=== PATIENT | female | born 1955 | race Caucasian/White ===

== ENCOUNTER 2016-04-20 16:35 | Emergency (ER) | payer SELFPAY ==
[2016-04-20 16:45] VITALS: BP 183/88; PULSE 86; O2SAT 98
--- NOTE | 2016-04-20 16:51 | ERPHSYRPT ---
- History of Present Illness Time Seen by Provider: 04/20/16 16:49 Source: patient Exam Limitations: no limitations Patient Subjective Stated Complaint: pt reports was walking down flight of steps when she felt her right knee "shift"-reports pain to right knee-denies fall Triage Nursing Assessment: no obvious deformity noted-pedal pulse present- denies numbnes sor tinlging Physician History: pt reports was walking down flight of steps when she felt her right knee "shift "-reports pain to right knee-denies fall Occurred: just prior to arrival Quality: constant Severity of Pain-Max: moderate Severity of Pain-Current: moderate Lower Extremities Pain: knee: right Modifying Factors: Improves With: nothing Associated Symptoms: none Allergies/Adverse Reactions: amoxicillin trihydrate [From Augmentin] Adverse Reaction (Severe, Verified 04/20 16:46) Vomiting potassium clavulanate [From Augmentin] Adverse Reaction (Severe, Verified 16:46) Vomiting Home Medications: Aspirin 81 mg PO DAILY 10/11/11 [History] Alprazolam 0.25 mg [xanAX 0.25 MG] 0.25 mg PO TIDPRN 09/25/15 [History] Atorvastatin Calcium [Lipitor] 40 mg PO HS 09/25/15 [History] Carvedilol [Coreg] 25 mg PO BID 09/25/15 [History] Lisinopril [Zestril] 20 mg PO DAILY 09/25/15 [History] Prasugrel HCl [Effient] 10 mg PO DAILY 09/25/15 [History] Hx Tetanus, Diphtheria Vaccination/Date Given: Yes Hx Influenza Vaccination/Date Given: No Hx Pneumococcal Vaccination/Date Given: No Immunizations Up to Date: Yes - Review of Systems Constitutional: No Symptoms Eyes: No Symptoms Ears, Nose, & Throat: No Symptoms Respiratory: No Symptoms Cardiac: No Symptoms Abdominal/Gastrointestinal: No Symptoms Genitourinary Symptoms: No Symptoms Musculoskeletal: Joint Pain (right knee), No Fall - Past Medical History Pertinent Past Medical History: Yes Neurological History: No Pertinent History Cardiac History: Coronary Artery Disease, High Cholesterol, Hypertension, Myocardial Infarction ([place]) Respiratory History: No Pertinent History Endocrine Medical History: No Pertinent History Musculoskeletal History: Arthritis, Fibromyalgia GI Medical History: No Pertinent History History: No Pertinent History Psycho-Social History: Depression Female Reproductive Disorders: No Pertinent History - Past Surgical History Past Surgical History: Yes Neuro Surgical History: No Pertinent History Cardiac: Cardiac Catheterization, Cardiac Stent Respiratory: No Pertinent History Gastrointestinal: Appendectomy Genitourinary: No Pertinent History Musculoskeletal: No Pertinent History Female Surgical History: Hysterectomy, Tubal Ligation - Social History Smoking Status: Current every day smoker How long have you smoked: 47 Exposure to second hand smoke: No Drug Use: none Patient Lives Alone: No - Female History Hx Now: No - Nursing Vital Signs Nursing Vital Signs: Initial Vital Signs Temperature 98.1 F Temperature Source Oral Pulse Rate 86 Respiratory Rate 22 Blood Pressure [] 183/88 Pain Intensity 6 - Physical Exam General Appearance: no apparent distress Eyes, Ears, Nose, Throat Exam: normal ENT inspection Knees Exam: right knee: pain, soft tissue tenderness, swelling SpO2: 98 Oxygen Delivery: Room Air - Radiology Exams Knee X-ray Interpretation: Reviewed by me (osteoarthritic changes) Ordered Tests: Active Orders 24 hr Category Date Time Status KNEE (3 VIEWS) Stat Exams 04/20/16 16:49 Taken - Progress Progress: improved, pain not gone completely Counseled pt/family regarding: diagnosis, need for follow-up, rad results - Departure Time of Disposition: 17:34 Departure Disposition: Home Clinical Impression: Osteoarthritis of right knee Qualifiers: Osteoarthritis type: primary Qualified Code(s): M17.11 - Unilateral primary osteoarthritis, right knee Condition: Stable Critical Care Time: No Referrals: [facility] [Primary Care Provider] - Instructions: Osteoarthritis Additional Instructions: Please follow the instructions given to you. Please take your medication as prescribed if given. If symptoms recur or get worse, come back to the emergency room if you cannot reach your primary care physician, or call your primary care physician for an appointment. Again if your symptoms get worse, come back to the emergency room. Thanks for visiting emergency room, and let us take care of you. Prescriptions: Naproxen 375 mg [Naprosyn 375 mg] 375 mg PO Q8H #30 tablet
--- NOTE | 2016-04-20 20:05 | XRAY ---
Indication: Pain. Comparison: None 3 views of the right knee intact with mild osteopenia and tiny lateral tibial plateau spurring. No other bony, articular, or soft tissue abnormalities.
== END 2016-04-20 17:53 | disposition home or self-care (01) ==
LOC: ED 16:35
DX: M17.11 Unilateral primary osteoarthritis, right knee (principal); M25.561 Pain in right knee; E78.00 Pure hypercholesterolemia, unspecified; I10 Essential (primary) hypertension; I25.2 Old myocardial infarction; I25.10 Atherosclerotic heart disease of native coronary artery without angina pectoris
CPT/HCPCS: 73562; 99282

== ENCOUNTER 2017-01-06 20:01 | Emergency (ER) | payer SELFPAY ==
[2017-01-06] MEDS ORDERED: TRANDATE 100 MG/20 ML MDV FOR DRIP IV ONE (20:02)
[2017-01-06] MEDS ORDERED: Sodium Chloride 0.9% 1000 ML 1,000 ML IV SCH (20:15)
[2017-01-06] MEDS ORDERED: Nitrostat 0.4 MG (ED) SL ONE ×2 (20:15→20:35)
[2017-01-06] MEDS ORDERED: TRANDATE 20 MG/5 ML SYRINGE IV ONE (20:15)
[2017-01-06] MEDS ORDERED: BABY ASPIRIN 81 MG CHEW PO ONE (20:15)
--- NOTE | 2017-01-06 20:19 | ERPHSYRPT ---
- History of Present Illness Time Seen by Provider: 01/06/17 20:04 Source: patient Exam Limitations: no limitations Patient Subjective Stated Complaint: STATES STARTED HAVING LEFT JAW PAIN WITH SLIGHT SOB AND CHEST TIGHTNESS STARTING TODAY AT APPROX. 1900 TODAY. TIGHTNESS AROUND BREASTBONE. Triage Nursing Assessment: ALERT AND ORIENTED WITH C/O CHEST TIGHTNESS AND SLIGHT SOB . COLOR SLIGHTLY PALE, SKIN W/D LUNGS CLEAR BILATERALLY. ABDOMEN SOFT. SLIGHT LOWER LEG ASWELLING THAT SHE STATES HAPPENS SOMETIMES. PAIN LEVEL @ 5 ON ARRIVAL. Physician History: FOR THE PAST 6 HOURS PT HAS HAD A HEADACHE; FOR THE PAST 3 HOURS LEFT JAW PAIN; FOR THE PAST HOUR TIGHTNESS IN THE CHEST AND SHORTNESS OF AIR. PT DENIES NAUSEA , VOMITING, ABDOMINAL PAIN, FEVER, DIAPHORESIS. Allergies/Adverse Reactions: amoxicillin trihydrate [From Augmentin] Adverse Reaction (Severe, Verified 01/06 20:16) Vomiting potassium clavulanate [From Augmentin] Adverse Reaction (Severe, Verified 20:16) Vomiting Hx Tetanus, Diphtheria Vaccination/Date Given: Yes Hx Influenza Vaccination/Date Given: No Hx Pneumococcal Vaccination/Date Given: No - Review of Systems Constitutional: No Fever Ears, Nose, & Throat: Other (LEFT JAW PAIN) Respiratory: Dyspnea Cardiac: Other (CHEST TIGHTNESS) Abdominal/Gastrointestinal: No Abdominal Pain, No Nausea, No Vomiting Neurological: Headache Endocrine: No Excessive Sweating All Other Systems: Reviewed and Negative - Past Medical History Pertinent Past Medical History: Yes Neurological History: No Pertinent History Cardiac History: Coronary Artery Disease, High Cholesterol, Hypertension, Myocardial Infarction ([place]) Respiratory History: No Pertinent History Endocrine Medical History: No Pertinent History Musculoskeletal History: Arthritis, Fibromyalgia GI Medical History: No Pertinent History History: No Pertinent History Psycho-Social History: Depression Female Reproductive Disorders: No Pertinent History - Past Surgical History Past Surgical History: Yes Neuro Surgical History: No Pertinent History Cardiac: Cardiac Catheterization, Cardiac Stent Respiratory: No Pertinent History Gastrointestinal: Appendectomy Genitourinary: No Pertinent History Musculoskeletal: No Pertinent History Female Surgical History: Hysterectomy, Tubal Ligation Other Surgical History: 4 TOTAL STENTS - Social History Smoking Status: Current every day smoker How long have you smoked: 47 Exposure to second hand smoke: No Drug Use: none Patient Lives Alone: No - Female History Hx Now: No - Nursing Vital Signs Nursing Vital Signs: Initial Vital Signs Pulse Rate 97 H 01/06/17 20:03 Respiratory Rate 20 01/06/17 20:03 O2 Sat by Pulse Oximetry 96 01/06/17 20:03 Pain Scale Pain Intensity 0 - Physical Exam General Appearance: alert Eye Exam: PERRL/EOMI Ears, Nose, Throat Exam: TMs normal, pharynx normal, moist mucous membranes Neck Exam: normal inspection, full range of motion Respiratory Exam: lungs clear Cardiovascular Exam: normal heart sounds Gastrointestinal/Abdomen Exam: soft, normal bowel sounds Back Exam: normal range of motion Extremity Exam: normal inspection, No pedal edema Neurologic Exam: alert, cooperative Skin Exam: warm, dry SpO2 Interpretation: normal SpO2: 94 Oxygen Delivery: Room Air - Course Nursing assessment & vital signs reviewed: Yes EKG Interpreted by Me: RATE (97), Sinus Rhythm, NORMAL AXIS, NORMAL INTERVALS - Radiology Exams Chest X-ray Interpretation: Interpreted by me, No Pneumonia Ordered Tests: Active Orders 24 hr Category Date Time Status EKG-ER Only STAT Care 01/06/17 20:15 Active IV Insertion STAT Care 01/06/17 20:15 Active IV Insertion-2nd Peripheral STAT Care 01/06/17 20:23 Active Oxygen-ED Only NASAL CANNULA 2 lpm Care 01/06/17 20:15 Active Pulse Oximetry (ED) STAT Care 01/06/17 20:15 Active CHEST 1 VIEW (PORTABLE) Stat Exams 01/06/17 20:15 Taken AMYLASE Stat Lab 01/06/17 20:19 Completed CBC W DIFF Stat Lab 01/06/17 20:19 Completed CMP Stat Lab 01/06/17 20:19 Completed CULTURE,URINE Stat Lab 01/06/17 21:10 Received LIPASE Stat Lab 01/06/17 20:19 Completed MAGNESIUM Stat Lab 01/06/17 20:19 Completed NT PRO BNP Stat Lab 01/06/17 20:19 Completed PROTIME WITH INR Stat Lab 01/06/17 20:19 Completed PTT Stat Lab 01/06/17 20:19 Completed TROPONIN Q3H Lab 01/06/17 20:19 Completed TROPONIN Q3H Lab 01/06/17 23:15 Ordered TROPONIN Q3H Lab 01/07/17 02:15 Ordered TROPONIN Q3H Lab 01/07/17 05:15 Ordered TROPONIN Q3H Lab 01/07/17 08:15 Ordered UA W/ MICROSCOPIC Stat Lab 01/06/17 21:10 Completed Urine Triage Profile Stat Lab 01/06/17 21:10 Completed Medication Summary Generic Name Dose Route Start Last Admin Trade Name Freq PRN Reason Stop Dose Admin Sodium Chloride 1,000 mls @ 100 mls/hr 01/06/17 20:15 01/06/17 20:21 Sodium Chloride 0.9% 1000 Ml IV 02/05/17 20:14 100 mls/hr .Q10H ASHLEY Administration Nitroglycerin 0.4 mg 01/06/17 20:19 01/06/17 20:29 Nitrostat 0.4 Mg Tablet SL 02/05/17 20:18 0.4 mg Q5MIN PRN MR X 3 PRN Administration CHEST PAIN Discontinued Medications Generic Name Dose Route Start Last Admin Trade Name Freq PRN Reason Stop Dose Admin Aspirin 324 mg 01/06/17 20:15 01/06/17 20:15 Baby Aspirin 81 Mg Chew PO 01/06/17 20:16 324 mg STAT ONE Administration Aspirin Confirm 01/06/17 20:35 Baby Aspirin 81 Mg Chew Administered 01/06/17 20:36 Dose 324 mg .ROUTE .STK-MED ONE Labetalol HCl 20 mg 01/06/17 20:15 01/06/17 20:30 Trandate 20 Mg/5 Ml Syringe IV 01/06/17 20:16 20 mg STAT ONE Administration Nitroglycerin 0.4 mg 01/06/17 20:15 01/06/17 20:10 Nitrostat 0.4 Mg (Ed) SL 01/06/17 20:16 0.4 mg STAT ONE Administration Nitroglycerin Confirm 01/06/17 20:35 Nitrostat 0.4 Mg (Ed) Administered 01/06/17 20:36 Dose 0.8 mg SL .STK-MED ONE Lab/Rad Data: Laboratory Result Diagrams 01/06/17 20:19 01/06/17 20:19 Laboratory Results 01/06/17 01/06/17 01/06/17 Range/Units 21:10 21:10 20:19 WBC (4.0-10.5) K/mm3 RBC (4.1-5.4) M/mm3 Hgb (12.0-16.0) gm/dl Hct (35-47) % MCV (78-100) fl MCH (26-32) pg MCHC (32-36) g/dl RDW (11.5-14.0) % Plt Count (150-450) K/mm3 MPV (6-9.5) fl Gran % (36.0-66.0) % Lymphocytes % (24.0-44.0) % Monocytes % (0.0-12.0) % Eosinophils % (0.00-5.0) % Basophils % (0.0-0.4) % Basophils # (0-0.4) INR (0.8-3.0) APTT (25.3-37.0) SECONDS Sodium (136-145) mEq/L Potassium (3.5-5.1) mEq/L Chloride (98-107) mEq/L Carbon Dioxide (21-32) mEq/L Anion Gap (5-15) MEQ/L BUN (9-20) mg/dL Creatinine (0.55-1.30) mg/dl Estimated GFR ML/MIN Glucose (70-110) MG/DL Calcium (8.5-10.1) mg/dL Magnesium (1.8-2.4) mg/dL Total Bilirubin (0.2-1.0) mg/dL AST (15-37) U/L ALT (12-78) U/L Alkaline Phosphatase (46-116) U/L Troponin I 0.055 (0.000-0.056) ng/ml NT-Pro-B Natriuret Pep (0-125) pg/ml Serum Total Protein (6.4-8.2) gm/dL Albumin (3.4-5.0) g/dL Amylase (25-115) U/L Lipase (73-393) U/L Ur Collection Type CLEAN CATCH Urine Color YELLOW (YELLOW) Urine Appearance CLEAR (CLEAR) Urine pH 6.5 (5-6) Ur Specific [place] 1.015 (1.005-1.025) Urine Protein 30 (Negative) Urine Ketones NEGATIVE (NEGATIVE) Urine Blood 50 (0-5) Danie/ul Urine Nitrite NEGATIVE (NEGATIVE) Urine Bilirubin NEGATIVE (NEGATIVE) Urine Urobilinogen NORMAL (0-1) mg/dL Ur Leukocyte Esterase NEGATIVE (NEGATIVE) Urine Microscopic RBC 2-5 (0-2) /HPF Urine Microscopic WBC 2-5 (0-5) /HPF Ur Epithelial Cells MODERATE (FEW) /HPF Urine Bacteria FEW (NEGATIVE) /HPF Urine Culture Reflexed YES (NO) Urine Glucose NEGATIVE (NEGATIVE) mg/dL Urine Opiates Level NEG. (NEGATIVE) Ur Methadone NEG. (NEGATIVE) Urine Barbiturates NEG. (NEGATIVE) Ur Phencyclidine (PCP) NEG. (NEGATIVE) Urine Amphetamine NEG. (NEGATIVE) U Benzodiazepine Level NEG. (NEGATIVE) Urine Cocaine NEG. (NEGATIVE) Urine Marijuana (THC) NEG. (NEGATIVE) Specimen Received 01/06/17 2100 01/06/17 01/06/17 01/06/17 Range/Units 20:19 20:19 20:19 WBC 8.4 (4.0-10.5) K/mm3 RBC 4.52 (4.1-5.4) M/mm3 Hgb 13.8 (12.0-16.0) gm/dl Hct 41.7 (35-47) % MCV 92.3 (78-100) fl MCH 30.5 (26-32) pg MCHC 33.1 (32-36) g/dl RDW 14.0 (11.5-14.0) % Plt Count 286 (150-450) K/mm3 MPV 9.5 (6-9.5) fl Gran % 58.3 (36.0-66.0) % Lymphocytes % 30.9 (24.0-44.0) % Monocytes % 6.2 (0.0-12.0) % Eosinophils % 4.0 (0.00-5.0) % Basophils % 0.6 (0.0-0.4) % Basophils # 0.05 (0-0.4) INR 1.00 (0.8-3.0) APTT 39.7 H (25.3-37.0) SECONDS Sodium 143 (136-145) mEq/L Potassium 3.8 (3.5-5.1) mEq/L Chloride 105 (98-107) mEq/L Carbon Dioxide 25.8 (21-32) mEq/L Anion Gap 15.9 H (5-15) MEQ/L BUN 15 (9-20) mg/dL Creatinine 0.98 (0.55-1.30) mg/dl Estimated GFR > 60 ML/MIN Glucose 135 H (70-110) MG/DL Calcium 9.8 (8.5-10.1) mg/dL Magnesium 2.0 (1.8-2.4) mg/dL Total Bilirubin 0.30 (0.2-1.0) mg/dL AST 23 (15-37) U/L ALT 29 (12-78) U/L Alkaline Phosphatase 114 (46-116) U/L Troponin I (0.000-0.056) ng/ml NT-Pro-B Natriuret Pep 605 H (0-125) pg/ml Serum Total Protein 7.2 (6.4-8.2) gm/dL Albumin 4.0 (3.4-5.0) g/dL Amylase 56 (25-115) U/L Lipase 179 (73-393) U/L Ur Collection Type Urine Color (YELLOW) Urine Appearance (CLEAR) Urine pH (5-6) Ur Specific [place] (1.005-1.025) Urine Protein (Negative) Urine Ketones (NEGATIVE) Urine Blood (0-5) Danie/ul Urine Nitrite (NEGATIVE) Urine Bilirubin (NEGATIVE) Urine Urobilinogen (0-1) mg/dL Ur Leukocyte Esterase (NEGATIVE) Urine Microscopic RBC (0-2) /HPF Urine Microscopic WBC (0-5) /HPF Ur Epithelial Cells (FEW) /HPF Urine Bacteria (NEGATIVE) /HPF Urine Culture Reflexed (NO) Urine Glucose (NEGATIVE) mg/dL Urine Opiates Level (NEGATIVE) Ur Methadone (NEGATIVE) Urine Barbiturates (NEGATIVE) Ur Phencyclidine (PCP) (NEGATIVE) Urine Amphetamine (NEGATIVE) U Benzodiazepine Level (NEGATIVE) Urine Cocaine (NEGATIVE) Urine Marijuana (THC) (NEGATIVE) Specimen Received - Progress Discussed with : Other (SPOKE WITH DR SNOW(HOSPITALIST)([id number]) WHO ACCEPTED PT FOR TRANSFER TO [facility] A DIRECT ADMISSION.) - Departure Time of Disposition: 22:09 Departure Disposition: Transfer ([facility]) Clinical Impression: CHEST TIGHTNESS, ELEVATING TROPONIN I, CAD, HTN, ARTHRITIS, FIBROMYALGIA, DEPRESSION Condition: Stable Critical Care Time: No Referrals: [facility] [Primary Care Provider] -
[2017-01-06] MEDS ORDERED: Sodium Chloride 0.9% 1000 ML 1,000 ML ONE (20:20)
[2017-01-06] MEDS: Nitrostat 0.4 MG Tablet SL PRN ×2 (20:21→20:29)
[2017-01-06 20:24] LABS: BASOPHIL % 0.6 % (0.0-0.4); Granulocytes % 58.3 % (36.0-66.0); Lymphocytes % 30.9 % (24.0-44.0); Mean Cell Volume 92.3 fl (78-100); Mean Corpuscular Hemoglobin 30.5 pg (26-32); Mean Platelet Volume 9.5 fl (6-9.5); Monocytes % 6.2 % (0.0-12.0); Platelet Count 286 K/mm3 (150-450); Red Blood Count 4.52 M/mm3 (4.1-5.4); White Blood Count 8.4 K/mm3 (4.0-10.5)
[2017-01-06] MEDS ORDERED: BABY ASPIRIN 81 MG CHEW ONE (20:35)
[2017-01-06 20:39] LABS: PROTIME 11.1 SECONDS (9.95-12.35)
[2017-01-06 20:41] LABS: PTT 39.7 SECONDS (25.3-37.0)
[2017-01-06 20:52] LABS: ALKALINE PHOSPHATASE 114 U/L (46-116); ANION GAP 15.9 MEQ/L (5-15); BLOOD UREA NITROGEN 15 mg/dL (9-20); CHLORIDE 105 mEq/L (98-107); Carbon Dioxide 25.8 mEq/L (21-32); Glucose 135 MG/DL (70-110); LIPASE 179 U/L (73-393); Potassium 3.8 mEq/L (3.5-5.1); SGOT/AST 23 U/L (15-37); SGPT/ALT 29 U/L (12-78); SODIUM 143 mEq/L (136-145); Total Protein 7.2 gm/dL (6.4-8.2)
[2017-01-06 21:34] LABS: Bilirubin NEGATIVE (NEGATIVE); Blood 50 Ery/ul (0-5); COMPLETE URINE MICROSCOPIC? YES; Collection Type CLEAN CATCH; Glucose NEGATIVE (NEGATIVE); Leukocyte Esterase NEGATIVE (NEGATIVE)
[2017-01-06 21:35] LABS: ADD URINE CULTURE? YES (NO); Bacteria FEW /HPF (NEGATIVE); Epithelial Cells MODERATE /HPF (FEW)
[2017-01-06 22:34] VITALS: BP 179/78; PULSE 83; O2SAT 98
--- NOTE | 2017-01-07 09:05 | XRAY ---
Indication: Short of breath. High blood pressure. Comparison: September 25, 2015. Portable chest remains clear. Heart and mediastinal structures within normal limits for AP portable technique. Bony thorax intact again with mild degenerative changes. Impression: Stable nonacute chest.
== END 2017-01-06 23:22 | disposition short-term general hospital (02) ==
LOC: ED 20:01
DX: R07.89 Other chest pain (principal); R94.39 Abnormal result of other cardiovascular function study; I25.10 Atherosclerotic heart disease of native coronary artery without angina pectoris; I10 Essential (primary) hypertension; M19.90 Unspecified osteoarthritis, unspecified site; M79.7 Fibromyalgia; F32.9 Major depressive disorder, single episode, unspecified; R51 Headache
CPT/HCPCS: 36000; 36415; 71010; 80053; 80307; 81000; 82150; 83690; 83735; 83880; 84484; 85025; 85610; 85730; 87086; 93005; 96360; 96361; 96365; 96374; 99285; A9270-GY

== ENCOUNTER 2018-05-11 05:30 | Day surgery (SDC) | payer OTHER ==
[2018-05-11] MEDS ORDERED: DIPRIVAN 200 MG/20 ML IV ONE (05:31)
[2018-05-11] MEDS ORDERED: Lactated Ringers 1,000 ML IV SCH (06:00)
[2018-05-11] MEDS ORDERED: Lactated Ringers 1,000 ML IV ONE (08:15)
--- NOTE | 2018-05-11 08:24 | OP ---
SURGERY DATE/TIME: 05/11/2018 0751 PREOPERATIVE DIAGNOSIS: Screening exam. POSTOPERATIVE DIAGNOSIS: Sigmoid diverticulosis and mild sigmoid colitis. PROCEDURE: Colonoscopy. SURGEON: Dr. Humphreys. ANESTHESIA: MAC. Medications given by anesthesia department. HISTORY: The patient is a 63 year-old white female presenting now fir colonic examination. She reports that she has never had one performed previously. She was appraised of the risks of the procedure including the risk of perforation, phlebitis, untoward reaction to medication, bleeding and missed lesions. The patient verbalized her understanding and desired to have the procedure performed. DESCRIPTION OF PROCEDURE: The patient was given the medications by the anesthesia department. She had continuous pulse oximetry, ECG monitoring, intermittent blood pressure monitoring and tidal CO2 monitoring during the examination. She was placed in the left lateral decubitus position. A digital rectal examination was performed and revealed normal anal sphincter tone and no masses. The flexible Olympus pediatric colonoscope was used to intubate the rectum. A view of the colon was developed sequentially to the cecum. Upon insertion and withdrawal there was noted to be moderate sigmoid diverticulosis and mild sigmoid colitis. The scope was removed from the patient who tolerated the procedure well and was sent back to OP recovery in good condition. The prep was noted to be fair. Large amounts of liquid stool needed to be suctioned through the colon throughout the exam but I believe we had adequate view after this.
[2018-05-11 08:39] VITALS: O2SAT 98
[2018-05-11 09:03] VITALS: BP 140/84; PULSE 82
== END 2018-05-11 09:05 | disposition home or self-care (01) ==
LOC: SDC 05:30
PROVIDERS: ATTEND Family Medicine
DX: Z12.11 Encounter for screening for malignant neoplasm of colon (principal); K57.30 Diverticulosis of large intestine without perforation or abscess without bleeding; K52.9 Noninfective gastroenteritis and colitis, unspecified; I25.10 Atherosclerotic heart disease of native coronary artery without angina pectoris; I25.2 Old myocardial infarction
CPT/HCPCS: 93005; J2704

== ENCOUNTER 2018-12-05 00:55 | Emergency (ER) | payer OTHER ==
--- NOTE | 2018-12-05 01:26 | ERPHSYRPT ---
- History of Present Illness Time Seen by Provider: 12/05/18 01:26 Source: patient Exam Limitations: no limitations Patient Subjective Stated Complaint: pt states she was stung 5 times by bumblebees today and has been having pain and swelling in her rt leg and lt hip. Triage Nursing Assessment: pt alert and otiented, answers questions approp. pt ambulatory iwth slow limping gait noted. respirations nonlabored with lungs cta. scabbed areas noted to rt lower leg. red area with warmth ntoed to lt hip. pedal pu lse and cap refill wnl bilat Physician History: Stung several times on right leg and left posterior hip today; swelling and pain at leg and hip Timing/Duration: today (Thursday) Quality: painful Severity: moderate Location: extremities (Left hip and right lower extremity) Possible Causes: insect bite (Bumble bees) Associated Symptoms: swelling/mass/lumps (R leg and L hip) Allergies/Adverse Reactions: amoxicillin trihydrate [From Augmentin] Adverse Reaction (Severe, Verified 12/05 01:07) Vomiting potassium clavulanate [From Augmentin] Adverse Reaction (Severe, Verified 01:07) Vomiting Home Medications: Atorvastatin Calcium [Lipitor] 80 mg PO DAILY 05/07/18 [History] Furosemide 20 mg [Lasix 20 mg] 20 mg PO DAILY 05/07/18 [History] Lisinopril 20 mg [Zestril 20 MG] 20 mg PO DAILY 05/07/18 [History] Hx Tetanus, Diphtheria Vaccination/Date Given: Yes Hx Influenza Vaccination/Date Given: No Hx Pneumococcal Vaccination/Date Given: No Immunizations Up to Date: Yes - Review of Systems Constitutional: Other (Pain and swelling at bite sites) Eyes: No Symptoms Ears, Nose, & Throat: No Symptoms Respiratory: No Symptoms, No Dyspnea Skin: Other (Pain, swelling at bite sites) All Other Systems: Reviewed and Negative - Past Medical History Pertinent Past Medical History: Yes Neurological History: No Pertinent History ENT History: No Pertinent History Cardiac History: Coronary Artery Disease, High Cholesterol, Hypertension, Myocardial Infarction ([place]) Respiratory History: No Pertinent History Endocrine Medical History: No Pertinent History Musculoskeletal History: Arthritis, Fibromyalgia GI Medical History: No Pertinent History History: No Pertinent History Psycho-Social History: Depression Female Reproductive Disorders: No Pertinent History - Past Surgical History Past Surgical History: Yes Neuro Surgical History: No Pertinent History Cardiac: CABG, Cardiac Catheterization, Cardiac Stent Respiratory: No Pertinent History Gastrointestinal: Appendectomy Genitourinary: No Pertinent History Musculoskeletal: No Pertinent History Female Surgical History: Hysterectomy, Tubal Ligation Other Surgical History: 4 TOTAL STENTS 2016 - Social History Smoking Status: Current every day smoker How long have you smoked: 49 Exposure to second hand smoke: No Drug Use: none Patient Lives Alone: No - Nursing Vital Signs Nursing Vital Signs: Initial Vital Signs Temperature 98.6 F 12/05/18 01:00 Pulse Rate 84 12/05/18 01:00 Respiratory Rate 18 12/05/18 01:00 Pain Scale Pain Intensity 5 - Physical Exam General Appearance: no apparent distress Respiratory Exam: normal breath sounds, lungs clear, airway intact Cardiovascular Exam: regular rate/rhythm, normal heart sounds, normal peripheral pulses Gastrointestinal/Abdomen Exam: soft, normal bowel sounds Neurologic Exam: alert, oriented x 3, cooperative Skin Exam: normal color, warm, dry SpO2 Interpretation: normal O2 Delivery: Room Air - Course Nursing assessment & vital signs reviewed: Yes Ordered Tests: Medication Summary Discontinued Medications Generic Name Dose Route Start Last Admin Trade Name Freq PRN Reason Stop Dose Admin Prednisone 40 mg 12/05/18 01:30 12/05/18 01:39 Deltasone 20 Mg PO 12/05/18 01:31 40 mg STAT ONE Administration Prednisone Confirm 12/05/18 01:38 Deltasone 20 Mg Administered 12/05/18 01:39 Dose 40 mg .ROUTE .STK-MED ONE Tramadol HCl 50 mg 12/05/18 01:49 12/05/18 01:53 Ultram 50 Mg PO 12/05/18 01:50 50 mg STAT ONE Administration Tramadol HCl Confirm 12/05/18 01:52 Ultram 50 Mg Administered 12/05/18 01:53 Dose 50 mg .ROUTE .STK-MED ONE - Departure Departure Disposition: Home Clinical Impression: Bee sting reaction Qualifiers: Encounter type: initial encounter Injury intent: accidental or unintentional Qualified Code(s): T63.441A - Toxic effect of venom of bees, accidental ( unintentional), initial encounter Condition: Stable Critical Care Time: No Referrals: SREEDHAR RAY [Primary Care Provider] - Instructions: Insect Bites and Stings ([place]) Additional Instructions: Take prednisone as prescribed for 5 days; continue to use your Benadryl. Follow up as needed with primary care. Cold to area may help also. Prescriptions: Prednisone 20 mg [Deltasone 20 mg] 40 mg PO DAILY #10 tablet
[2018-12-05] MEDS ORDERED: DELTASONE 20 MG PO ONE (01:30)
[2018-12-05] MEDS ORDERED: DELTASONE 20 MG ONE (01:38)
[2018-12-05] MEDS ORDERED: ULTRAM 50 MG PO ONE (01:49)
[2018-12-05] MEDS ORDERED: ULTRAM 50 MG ONE (01:52)
[2018-12-05 02:23] VITALS: BP 187/97; PULSE 71; O2SAT 95
== END 2018-12-05 02:30 | disposition home or self-care (01) ==
LOC: ED 00:55
DX: T63.441A Toxic effect of venom of bees, accidental (unintentional), initial encounter (principal); M79.89 Other specified soft tissue disorders; I25.10 Atherosclerotic heart disease of native coronary artery without angina pectoris; E78.00 Pure hypercholesterolemia, unspecified; I25.2 Old myocardial infarction; I10 Essential (primary) hypertension
CPT/HCPCS: 99283; A9270-GY

== ENCOUNTER 2018-12-11 21:00 | Emergency (ER) | payer OTHER ==
[2018-12-11] MEDS ORDERED: Ecotrin 325 MG PO STA (21:28)
[2018-12-11] MEDS ORDERED: BABY ASPIRIN 81 MG CHEW PO ONE (21:28)
[2018-12-11] MEDS ORDERED: Zestril 20 MG PO ONE ×2 (21:28→21:29)
[2018-12-11] MEDS ORDERED: BABY ASPIRIN 81 MG CHEW ONE (21:33)
--- NOTE | 2018-12-11 21:36 | ERPHSYRPT ---
- History of Present Illness Time Seen by Provider: 12/11/18 21:30 Source: patient Exam Limitations: no limitations Patient Subjective Stated Complaint: pt states she woke up with blurriness in her lt eye. state throughout the day sit has gotten worse and tonight she can only see blurred shapes with darkness around edges. denies pain, denies unjury , denies exposure to any chemicals. Triage Nursing Assessment: pt alert and oriented, answers questions approp. pt ambulatory with steady gait noted. respirations nonlabored with lungs cta. no tearing or discharge noted from lt eye. no redness or swelling. pt unable to read largest line on eye chart with lt eye. Physician History: Ms Pires is a 63 years old female with significant PMHx of CAD, S/P CABG, HTN states she woke up at 6-30AM with blurriness in her left eye. state throughout the day sit has gotten worse and tonight she can only see blurred shapes with darkness around edges. denies pain, denies injury, denies exposure to any chemicals. Denies any chest pain, dizziness Timing/Duration: today Character of Deficits: vision problems (left eye) Deficits: no difficulties Baseline/Normal Cognition: alert oriented x 3 Current Cognition: alert oriented x 3 Associated Symptoms: vision changes (blurred vision on left eye) Allergies/Adverse Reactions: amoxicillin trihydrate [From Augmentin] Adverse Reaction (Severe, Verified 12/05 01:07) Vomiting potassium clavulanate [From Augmentin] Adverse Reaction (Severe, Verified 01:07) Vomiting Home Medications: Atorvastatin Calcium [Lipitor] 80 mg PO DAILY 05/07/18 [History] Furosemide 20 mg [Lasix 20 mg] 20 mg PO DAILY 05/07/18 [History] Lisinopril 20 mg [Zestril 20 MG] 20 mg PO DAILY 05/07/18 [History] Hx Tetanus, Diphtheria Vaccination/Date Given: Yes Hx Influenza Vaccination/Date Given: No Hx Pneumococcal Vaccination/Date Given: No Immunizations Up to Date: Yes - Review of Systems Constitutional: No Fever, No Chills Eyes: No Symptoms, Vision Changes Ears, Nose, & Throat: No Symptoms Respiratory: No Cough, No Dyspnea Cardiac: No Chest Pain, No Edema, No Syncope Abdominal/Gastrointestinal: No Abdominal Pain, No Nausea, No Vomiting, No Diarrhea Genitourinary Symptoms: No Dysuria Musculoskeletal: No Back Pain, No Neck Pain Skin: No Rash Neurological: No Dizziness, No Focal Weakness, No Sensory Changes Psychological: No Symptoms Endocrine: No Symptoms All Other Systems: Reviewed and Negative - Past Medical History Pertinent Past Medical History: Yes Neurological History: No Pertinent History ENT History: No Pertinent History Cardiac History: Coronary Artery Disease, High Cholesterol, Hypertension, Myocardial Infarction ([place]) Respiratory History: No Pertinent History Endocrine Medical History: No Pertinent History Musculoskeletal History: Arthritis, Fibromyalgia GI Medical History: No Pertinent History History: No Pertinent History Psycho-Social History: Depression Female Reproductive Disorders: No Pertinent History - Past Surgical History Past Surgical History: Yes Neuro Surgical History: No Pertinent History Cardiac: CABG, Cardiac Catheterization, Cardiac Stent Respiratory: No Pertinent History Gastrointestinal: Appendectomy Genitourinary: No Pertinent History Musculoskeletal: No Pertinent History Female Surgical History: Hysterectomy, Tubal Ligation Other Surgical History: 4 TOTAL STENTS 2016 - Social History Smoking Status: Current every day smoker How long have you smoked: 49 Exposure to second hand smoke: Yes Drug Use: none Patient Lives Alone: No - Nursing Vital Signs Nursing Vital Signs: Initial Vital Signs Temperature 99.3 F 12/11/18 21:06 Pulse Rate 84 12/11/18 21:06 Respiratory Rate 18 12/11/18 21:06 Blood Pressure 193/97 12/11/18 21:06 O2 Sat by Pulse Oximetry 97 12/11/18 21:06 Pain Scale Pain Intensity 0 - Aman Coma Scale Best Eye Response ([place]): (4) open spontaneously Best Verbal Response ([place]): (5) oriented Best Motor Response ([place]): (6) obeys commands Aman Total: 15 - Physical Exam General Appearance: no apparent distress, alert Eye Exam: left eye: vision changes (left fundus exam - blurred retina, unable to see peripheral area due nondilated exam), bilateral eye: PERRL, EOMI Ears, Nose, Throat Exam: normal ENT inspection, moist mucous membranes Neck Exam: normal inspection, non-tender, supple Respiratory: normal breath sounds, lungs clear, airway intact, No respiratory distress Cardiovascular: regular rate/rhythm, No edema Gastrointestinal: soft, No tenderness, No distention Back Exam: normal inspection Extremity Exam: normal inspection, No pedal edema 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, 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 Exam: tongue midline Coordination/Gait: normal finger to nose, normal gait Skin Exam: normal color, warm, dry, No rash SpO2: 97 - Course Nursing assessment & vital signs reviewed: Yes Ordered Tests: Medication Summary Discontinued Medications Generic Name Dose Route Start Last Admin Trade Name Taisha PRN Reason Stop Dose Admin Aspirin 325 mg 12/11/18 21:28 Ecotrin 325 Mg PO 12/11/18 21:29 QAM STA Aspirin 324 mg 12/11/18 21:28 12/11/18 21:33 Baby Aspirin 81 Mg Chew PO 12/11/18 21:29 324 mg STAT ONE Administration Aspirin Confirm 12/11/18 21:33 Baby Aspirin 81 Mg Chew Administered 12/11/18 21:34 Dose 324 mg .ROUTE .STK-MED ONE Lisinopril 20 mg 12/11/18 21:29 Zestril 20 Mg PO 12/11/18 21:30 STAT ONE Lisinopril 20 mg 12/11/18 21:28 12/11/18 21:37 Zestril 20 Mg PO 12/11/18 21:29 20 mg STAT ONE Administration - Progress Progress: unchanged Counseled pt/family regarding: diagnosis, need for follow-up - Departure Departure Disposition: Home Clinical Impression: Ocular ischemic syndrome, Hypertensive urgency Condition: Stable Critical Care Time: No Referrals: [facility], [facility] [NON-STAFF PHY W/O PRIVILEGES] - SREEDHAR RAY [Primary Care Provider] - Follow Up with PCP/3 days Additional Instructions: It appears that many years symptoms in the year that 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 your vision may improve. We have given him 325 mg of aspirin 1 dose in the emergency room and you should start 325 mg aspirin daily. The tire duster has ordered some blood tests which are fasting so used to get those in the morning. Continue all your other high blood pressure medication as prescribed. We have given Nighttime dose of lisinopril [address] Ray on Thursday morning and get an appointment. Also call Dr. Us who is an sewage disposal engineer for your vision exam. Please take your fasting blood tests in the morning tomorrow. If your symptoms recur or any other new symptoms include severe headache or chest pain come to the emergency room. Discharge/Care Plan JOVANY PIRES was seen on 12/11/18 in the Emergency Room. The patient was counseled regarding Diagnosis,Lab results, Imaging studies, need for follow up and when to return to the Emergency Room. Prescriptions given: Discharge Note I have spoken with the patient and/or caregivers. I have explained the patient' s condition, diagnosis and treatment plan based on the information available to me at this time. I have answered the patient's and/or caregiver's questions and addressed any concerns. The patient and/or caregivers have as good understanding of the patient's diagnosis, condition and treatment plan as can be expected at this point. The vital signs have been stable. The patient's condition is stable and appropriate for discharge from the emergency department. The patient will pursue further outpatient evaluation with the primary care physician or other designated or consulting physician as outlined in the discharge instructions. The patient and/or caregivers are agreeable to this plan of care and follow-up instructions have been explained in detail. The patient and/or caregivers have received these instruction. The patient/and or caregivers are aware that any significant change in condition or worsening of symptoms should prompt an immediate return to this or the closest emergency department or call 911. Prescriptions: Aspirin EC 325 mg [Ecotrin 325 MG] 325 mg PO DAILY #30 tablet.ec
[2018-12-11 22:06] VITALS: BP 169/77; O2SAT 96
[2018-12-11 22:11] VITALS: PULSE 68
== END 2018-12-11 22:12 | disposition home or self-care (01) ==
LOC: ED 21:00
DX: H35.82 Retinal ischemia (principal); I16.0 Hypertensive urgency
CPT/HCPCS: 99283; A9270-GY

== ENCOUNTER 2019-03-08 14:19 | Emergency (ER) | payer OTHER ==
--- NOTE | 2019-03-08 14:44 | ERPHSYRPT ---
- History of Present Illness Time Seen by Provider: 03/08/19 14:44 Source: patient Exam Limitations: no limitations Physician History: The patient is a 63-year-old female who presents with a chief complaint dizziness/orthostasis that started around 1:00 this afternoon. [place] dorsum otherwise fine until this afternoon when she started to experience episodes of nonbloody diarrhea. Also dorsal and nauseated and shortly after started to feel "dizzy" and weak with standing. She nurse's she's been laying down she has been feeling better and her nausea is resolved. She denies syncope/near syncope, shortness of breath, cough, fever, chills, chest pain abdominal pain. There is no report of recent sick contacts and the patient is scheduled to travel to [place] this coming weekend to go to a . Timing/Duration: today Modifying Factors: Improves With: rest Associated Symptoms: nausea, other (Diarrhea), No vomiting, No abdominal pain, No shortness of breath, No cough, No chills, No chest pain, No fever, No headaches, No loss of appetite, No malaise, No rash, No syncope, No seizure, No weakness Allergies/Adverse Reactions: amoxicillin trihydrate [From Augmentin] Adverse Reaction (Severe, Verified 03/08 14:49) Vomiting potassium clavulanate [From Augmentin] Adverse Reaction (Severe, Verified 14:49) Vomiting Home Medications: Atorvastatin Calcium [Lipitor] 80 mg PO DAILY 05/07/18 [History] Furosemide 20 mg [Lasix 20 mg] 20 mg PO DAILY 05/07/18 [History] Lisinopril 20 mg [Zestril 20 MG] 20 mg PO BID 05/07/18 [History] Alendronate Sodium 70 mg [Fosamax 70 MG] 70 mg PO WEEKLY 03/08/19 [History ] Aspirin EC 325 mg [Ecotrin 325 MG] 81 mg PO DAILY 03/08/19 [History] Biotin 1 mg PO BID 03/08/19 [History] Metoprolol Tartrate 50 mg PO BID 03/08/19 [History] Nifedipine [Nifedipine ER] 30 mg PO BID 03/08/19 [History] Hx Tetanus, Diphtheria Vaccination/Date Given: Yes Hx Influenza Vaccination/Date Given: No Hx Pneumococcal Vaccination/Date Given: No - Review of Systems Constitutional: No Fever, No Chills, No Fatigue, No Night Sweats, No Weakness Eyes: No Symptoms Respiratory: No Cough, No Cyanosis, No Dyspnea, No Dyspnea on Exertion (MARX) Cardiac: No Chest Pain, No Edema, No Palpitations, No Syncope Abdominal/Gastrointestinal: Nausea, Diarrhea, No Abdominal Pain, No Vomiting Genitourinary Symptoms: No Dysuria, No Frequency, No Hematuria Skin: No Symptoms Psychological: No Symptoms, Drug Abuse, Anxiety, No Alcohol Abuse All Other Systems: Reviewed and Negative - Past Medical History Pertinent Past Medical History: Yes Neurological History: No Pertinent History ENT History: No Pertinent History Cardiac History: Coronary Artery Disease, High Cholesterol, Hypertension, Myocardial Infarction ([place]) Respiratory History: No Pertinent History Endocrine Medical History: No Pertinent History Musculoskeletal History: Arthritis, Fibromyalgia GI Medical History: No Pertinent History History: No Pertinent History Psycho-Social History: Depression Female Reproductive Disorders: No Pertinent History - Past Surgical History Past Surgical History: Yes Neuro Surgical History: No Pertinent History Cardiac: CABG, Cardiac Catheterization, Cardiac Stent Respiratory: No Pertinent History Gastrointestinal: Appendectomy Genitourinary: No Pertinent History Musculoskeletal: No Pertinent History Female Surgical History: Hysterectomy, Tubal Ligation Other Surgical History: 4 TOTAL STENTS 2016 - Social History Smoking Status: Current every day smoker How long have you smoked: 49 Exposure to second hand smoke: Yes Drug Use: none Patient Lives Alone: No - Nursing Vital Signs Nursing Vital Signs: Initial Vital Signs Temperature 97.6 F 03/08/19 14:30 Pulse Rate 88 03/08/19 14:30 Respiratory Rate 16 03/08/19 14:30 Blood Pressure 98/70 03/08/19 14:30 O2 Sat by Pulse Oximetry 97 03/08/19 14:30 Pain Scale Pain Intensity 0 - Physical Exam General Appearance: no apparent distress Eye Exam: PERRL/EOMI, eyes nml inspection Ears, Nose, Throat Exam: normal ENT inspection, pharynx normal, moist mucous membranes, No pharyngeal erythema, No tonsillar exudate Neck Exam: normal inspection, supple Respiratory Exam: normal breath sounds, lungs clear, airway intact, No respiratory distress, No diminished breath sounds, No accessory muscle use Cardiovascular Exam: regular rate/rhythm, normal heart sounds, normal peripheral pulses, capillary refill <2 sec, capillary refill 2-3 sec, other ( Well-healed sternotomy scar present), No murmur, No friction rub, No gallop, No tachycardia Gastrointestinal/Abdomen Exam: soft, No tenderness, No distention, No mass, No guarding, No ecchymosis Rectal Exam: deferred Back Exam: normal inspection Extremity Exam: normal inspection Neurologic Exam: alert, oriented x 3, cooperative, normal mood/affect Skin Exam: normal color, warm, dry, No rash, No petechiae, No jaundice, No abrasion, No cyanosis O2 Delivery: Room Air - Course EKG Interpreted by Me: RATE, Sinus Rhythm, NORMAL AXIS, Right Bundle Branch Block, Other (No evidence of STEMI or acute myocardial ischemia or injury. EKG appears similar to EKG on 01/10/19) Ordered Tests: Active Orders 24 hr Category Date Time Status Order Administrator STAT Care 03/08/19 15:02 Active EKG-ER Only STAT Care 03/08/19 15:02 Active IV Insertion STAT Care 03/08/19 15:02 Active BMP Stat Lab 03/08/19 15:15 Completed CBC W DIFF Stat Lab 03/08/19 15:02 Completed TROPONIN Stat Lab 03/08/19 15:15 Completed Medication Summary Discontinued Medications Generic Name Dose Route Start Last Admin Trade Name Freq PRN Reason Stop Dose Admin Sodium Chloride 1,000 mls @ 999 mls/hr 03/08/19 15:02 03/08/19 16:50 Sodium Chloride 0.9% 1000 Ml IV 03/08/19 16:02 Infused .Q1H1M STA Infusion Sodium Chloride Confirm 03/08/19 15:25 Sodium Chloride 0.9% 1000 Ml Administered 03/08/19 15:26 Dose 1,000 mls @ ud .ROUTE .STK-MED ONE Lab/Rad Data: Laboratory Result Diagrams 03/08/19 15:02 03/08/19 15:15 Laboratory Results 03/08/19 03/08/19 Range/Units 15:15 15:02 WBC 12.3 H (4.0-10.5) K/mm3 RBC 4.70 (4.1-5.4) M/mm3 Hgb 14.6 (12.0-16.0) gm/dl Hct 44.8 (35-47) % MCV 95.3 (78-100) fl MCH 31.1 (26-32) pg MCHC 32.6 (32-36) g/dl RDW 14.4 H (11.5-14.0) % Plt Count 261 (150-450) K/mm3 MPV 9.7 H (6-9.5) fl Gran % 76.4 H (36.0-66.0) % Eos # (Auto) 0.19 (0-0.5) Absolute Lymphs (auto) 1.80 (1.0-4.6) Absolute Monos (auto) 0.89 (0.0-1.3) Lymphocytes % 14.6 L (24.0-44.0) % Monocytes % 7.2 (0.0-12.0) % Eosinophils % 1.5 (0.00-5.0) % Basophils % 0.3 (0.0-0.4) % Absolute Granulocytes 9.42 H (1.4-6.9) Basophils # 0.04 (0-0.4) Sodium 141 (137-145) mmol/L Potassium 3.9 (3.5-5.1) mmol/L Chloride 108 H (98-107) mmol/L Carbon Dioxide 26 (22-30) mmol/L Anion Gap 11.2 (5-15) MEQ/L BUN 14 (7-17) mg/dL Creatinine 1.02 (0.52-1.04) mg/dL Estimated GFR 58.2 ML/MIN Glucose 98 (74-106) mg/dL Calcium 9.7 (8.4-10.2) mg/dL Troponin I < 0.012 (0.000-0.034) ng/mL - Progress Progress: improved Progress Note: 03/08/19 16:01 The patient was reassessed to find that she is now feeling better. Counseled pt/family regarding: lab results, diagnosis, need for follow-up - Departure Departure Disposition: Home Clinical Impression: Orthostasis, Diarrhea, Nausea, Hypotension Condition: Good Critical Care Time: No Referrals: SREEDHAR RAY [Primary Care Provider] - Instructions: Diarrhea in Adolescents and Adults, Dizziness, Nonvertigo, (DC) Plan of Treatment: Nontoxic in appearance. EKG and labs reviewed. Symptoms seem more like orthostasis given patient BP in the high 90's systolic on presentation. ? enteritis starting given diarrhea and nausea. ? volume depletion leading to symptoms. Low suspicion for ACS equivalent at this time, PE, and neuro etiology at this time. Patient was treated symptomatically with IVF and after which her orthostasis resolved. She as ambulated without difficulty or orthostasis. She was instructed to move from a sitting to standing position with caution and instructed to hold her BP meds for a day if she continues to have ongoing diarrhea and to drink plenty of fluids to remain hydrated. Otherwise, she would need to f/u with her PCP as needed and to return to the ED if her symptoms became worse. She agreed with and verbally understood the discharge plan.
[2019-03-08] MEDS ORDERED: Sodium Chloride 0.9% 1000 ML 1,000 ML IV STA (15:02)
[2019-03-08 15:20] LABS: Absolute Neutrophil Ct (ANC) 9.42 (1.4-6.9); BASOPHIL % 0.3 % (0.0-0.4); Basophil (Absolute #) 0.04 (0-0.4); Eosinophil % 1.5 % (0.00-5.0); Eosinophil (Absolute #) 0.19 (0-0.5); Hematocrit 44.8 % (35-47); Hemoglobin 14.6 gm/dl (12.0-16.0); Lymphocytes % 14.6 % (24.0-44.0); Mean Cell Volume 95.3 fl (78-100); Mean Corpuscular Hemoglobin 31.1 pg (26-32); Mean Corpuscular Hgb Concent. 32.6 g/dl (32-36); Mean Platelet Volume 9.7 fl (6-9.5); Monocyte (Absolute #) 0.89 (0.0-1.3); Monocytes % 7.2 % (0.0-12.0); Neutrophil % 76.4 % (36.0-66.0); Platelet Count 261 K/mm3 (150-450); Red Cell Distribution Width 14.4 % (11.5-14.0); White Blood Count 12.3 K/mm3 (4.0-10.5)
[2019-03-08] MEDS ORDERED: Sodium Chloride 0.9% 1000 ML 1,000 ML ONE (15:25)
[2019-03-08 16:40] LABS: ANION GAP 11.2 MEQ/L (5-15); BLOOD UREA NITROGEN 14 mg/dL (7-17); CHLORIDE 108 mmol/L (98-107); Calcium 9.7 mg/dL (8.4-10.2); Carbon Dioxide 26 mmol/L (22-30); Creatinine 1 1.02 mg/dL (0.52-1.04); Glucose 98 mg/dL (74-106); Potassium 3.9 mmol/L (3.5-5.1); SODIUM 141 mmol/L (137-145)
[2019-03-08 16:45] VITALS: BP 125/70; PULSE 69; O2SAT 100
[2019-03-08 16:49] LABS: TROPONIN < 0.012 ng/mL (0.000-0.034)
== END 2019-03-08 16:58 | disposition home or self-care (01) ==
LOC: ED 14:19
DX: R19.7 Diarrhea, unspecified (principal); R11.2 Nausea with vomiting, unspecified; I95.9 Hypotension, unspecified; Z79.899 Other long term (current) drug therapy; I25.10 Atherosclerotic heart disease of native coronary artery without angina pectoris; E78.00 Pure hypercholesterolemia, unspecified; I25.2 Old myocardial infarction
CPT/HCPCS: 36415; 80048; 84484; 85025; 93005; 93041; 96360; 99284

== ENCOUNTER 2019-06-19 18:45 | Emergency (ER) | payer OTHER ==
[2019-06-19] MEDS ORDERED: MOTRIN 400 MG PO ONE (19:03)
[2019-06-19] MEDS ORDERED: MOTRIN 400 MG ONE (19:07)
--- NOTE | 2019-06-19 19:07 | ERPHSYRPT ---
- History of Present Illness Time Seen by Provider: 06/19/19 19:20 Source: patient Exam Limitations: no limitations Physician History: Patient is a [id number] female who presents with a chief complaint of painless vision loss in her left eye. Onset was around 1500 this afternoon while she was at her home. She had a similar episode in December 2018 in which she was noted to have some "bleeding" in the eye after a "stroke" of the left eye. She was seen by her supervisor title here in [place] and referred to an supervisor title located near [facility] and had surgery in the left eye for "blood removal" and reported had some decrease in visual acuity in the left eye thereafterwards. Of note the patient wears reading glasses but does not require corrective lenses at all times nor does she wear any contacts. She denies any recent trauma to the eye. She denies headache, focal weakness, paresthesias. She currently takes aspirin 81 mg daily and her last dose was this morning. She denies being anticoagulated. Timing/Duration: today Associated Symptoms: No nausea, No vomiting, No abdominal pain, No shortness of breath Allergies/Adverse Reactions: amoxicillin trihydrate [From Augmentin] Adverse Reaction (Severe, Verified 03/08 14:49) Vomiting potassium clavulanate [From Augmentin] Adverse Reaction (Severe, Verified 14:49) Vomiting Home Medications: Atorvastatin Calcium [Lipitor] 80 mg PO DAILY 05/07/18 [History] Furosemide 20 mg [Lasix 20 mg] 20 mg PO DAILY 05/07/18 [History] Lisinopril 20 mg [Zestril 20 MG] 20 mg PO BID 05/07/18 [History] Alendronate Sodium 70 mg [Fosamax 70 MG] 70 mg PO WEEKLY 03/08/19 [History ] Aspirin EC 325 mg [Ecotrin 325 MG] 81 mg PO DAILY 03/08/19 [History] Biotin 1 mg PO BID 03/08/19 [History] Metoprolol Tartrate 50 mg PO BID 03/08/19 [History] Nifedipine [Nifedipine ER] 30 mg PO BID 03/08/19 [History] Hx Tetanus, Diphtheria Vaccination/Date Given: Yes Hx Influenza Vaccination/Date Given: No Hx Pneumococcal Vaccination/Date Given: No Travel Risk - International Travel Have you traveled outside of the country in past 3 weeks: No Have you or anyone close to you been diagnosed with or: No Do your reside in a community with a known COVID-19 case?: No - Coronavirus Screening Has patient experienced Coronavirus symptoms: No - Review of Systems Constitutional: No Fever, No Chills Eyes: Other (Vision loss in left eye) Ears, Nose, & Throat: No Symptoms Respiratory: No Symptoms, No Cough, No Cyanosis, No Dyspnea, No Dyspnea on Exertion (MARX) Cardiac: No Chest Pain Abdominal/Gastrointestinal: No Abdominal Pain, No Nausea, No Vomiting, No Diarrhea Musculoskeletal: No Symptoms, No Injury Skin: No Symptoms Neurological: No Dizziness, No Focal Weakness, No Headache, No Sensory Changes, No Speech Changes, No Tremors Psychological: No Symptoms Immunological/Allergic: No Symptoms - Past Medical History Pertinent Past Medical History: Yes Neurological History: No Pertinent History ENT History: No Pertinent History Cardiac History: Coronary Artery Disease, High Cholesterol, Hypertension, Myocardial Infarction ([place]) Respiratory History: No Pertinent History Endocrine Medical History: No Pertinent History Musculoskeletal History: Arthritis, Fibromyalgia GI Medical History: No Pertinent History History: No Pertinent History Psycho-Social History: Depression Female Reproductive Disorders: No Pertinent History Other Medical History: 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 - Past Surgical History Past Surgical History: Yes Neuro Surgical History: No Pertinent History Cardiac: CABG, Cardiac Catheterization, Cardiac Stent Respiratory: No Pertinent History Gastrointestinal: Appendectomy Genitourinary: No Pertinent History Musculoskeletal: No Pertinent History Female Surgical History: Hysterectomy, Tubal Ligation Other Surgical History: 4 TOTAL STENTS 2016 - Social History Smoking Status: Current every day smoker How long have you smoked: 49 Exposure to second hand smoke: Yes Drug Use: none Patient Lives Alone: No - Nursing Vital Signs Nursing Vital Signs: Initial Vital Signs Temperature 98.2 F 06/19/19 18:51 Pulse Rate 74 06/19/19 18:51 Respiratory Rate 20 06/19/19 18:51 Blood Pressure 174/74 06/19/19 18:51 O2 Sat by Pulse Oximetry 98 06/19/19 18:51 Pain Scale Pain Intensity 0 - Physical Exam General Appearance: no apparent distress, alert Eye Exam: PERRL/EOMI, other (VA in the right eye 20/30 and patient only able to see blurred hand move in L eye when in front of face. No APD, no hypopyon, no hyphema, no proptosis. Unable to visualize the fundus of the L eye and red reflex was abnormal in the L eye.), No scleral icterus, No pale conjunctivae, No photophobia, No post op pupil defect (L), No post op pupil defect (R), No EOM palsy/anisocoria Ears, Nose, Throat Exam: TMs normal, pharynx normal, moist mucous membranes, No TM abnormal (L), No pharyngeal erythema, No tonsillar exudate Neck Exam: normal inspection, No JVD Respiratory Exam: normal breath sounds, lungs clear, airway intact, No chest tenderness, No respiratory distress, No diminished breath sounds Cardiovascular Exam: regular rate/rhythm, normal heart sounds, normal peripheral pulses, capillary refill <2 sec, No murmur, No friction rub, No gallop, No edema, No pulse deficit Gastrointestinal/Abdomen Exam: soft, No tenderness, No distention, No mass Pelvic Exam: not done Rectal Exam: deferred Back Exam: normal inspection Extremity Exam: normal inspection, other (Insurance Application Investigator strength 4+ bilaterally, Hip flexion 4+ bilaterally, dorsiflexion and plantar flexion 4+ bilaterally. No pronator drift. No dysmetria), No tenderness Neurologic Exam: alert, oriented x 3, cooperative, shop repairer II-XII nml as tested ( wnl except vision loss in L eye), normal mood/affect, nml cerebellar function, sensation nml, No motor deficits, No sensory deficit (except L eye) Skin Exam: normal color, warm, dry, No rash, No petechiae, No jaundice SpO2 Interpretation: normal O2 Delivery: Room Air - Course Nursing assessment & vital signs reviewed: Yes EKG Interpreted by Me: RATE, Right Bundle Branch Block, Other (Sinus rhythm, ventricular rate 62 bpm, SD interval 187 ms, QRS duration 152 ms, QT/QTc 440/ 447 ms, no evidence of acute myocardial ischemia or injury. EKG looks similar to an EKG obtained on March 08, 2019.) - CT Exams Head CT Interpretation: Negative (CT head without contrast are within normal limits.) Soft Tissue Neck CT Interpretation: Other (Moderate stenosis noted in the left common carotid artery/atherosclerotic plaque. There appears to be no additional stenosis noted in the right carotid artery, right vertebral artery, left internal carotid artery, left external carotid artery and left vertebral artery) Ordered Tests: Active Orders 24 hr Category Date Time Status Coin Machine Service Repairer STAT Care 06/19/19 19:36 Active EKG-ER Only STAT Care 06/19/19 19:34 Active IV Insertion STAT Care 06/19/19 19:34 Active NPO (ED) STAT Care 06/19/19 19:35 Active Pulse Oximetry (ED) STAT Care 06/19/19 19:34 Active Re-Check Vital Signs STAT Care 06/19/19 19:34 Active Visual Acuity STAT Care 06/19/19 18:[address] ANGIOGRAPHY NECK [CT] Stat Exams 06/19/19 19:42 Taken CTA HEAD W AND/OR WO CONTRAST [CT] Stat Exams 06/19/19 19:40 Taken BMP Stat Lab 06/19/19 20:20 Completed CBC W DIFF Stat Lab 06/19/19 20:20 Completed PROTIME WITH INR Stat Lab 06/19/19 20:20 Completed PTT Stat Lab 06/19/19 20:20 Completed Medication Summary Discontinued Medications Generic Name Dose Route Start Last Admin Trade Name Freq PRN Reason Stop Dose Admin Ibuprofen 400 mg 06/19/19 19:03 06/19/19 19:32 Motrin 400 Mg PO 06/19/19 19:04 Not Given STAT ONE Ibuprofen Confirm 06/19/19 19:07 Motrin 400 Mg Administered 06/19/19 19:08 Dose 400 mg .ROUTE .STK-MED ONE Lab/Rad Data: Laboratory Result Diagrams 06/19/19 20:20 06/19/19 20:20 Laboratory Results 06/19/19 06/19/19 06/19/19 Range/Units 20:20 20:20 20:20 WBC (4.0-10.5) K/mm3 RBC (4.1-5.4) M/mm3 Hgb (12.0-16.0) gm/dl Hct (35-47) % MCV (78-100) fl MCH (26-32) pg MCHC (32-36) g/dl RDW (11.5-14.0) % Plt Count (150-450) K/mm3 MPV (7.5-11.0) fl Gran % (36.0-66.0) % Eos # (Auto) (0-0.5) Absolute Lymphs (auto) (1.0-4.6) Absolute Monos (auto) (0.0-1.3) Lymphocytes % (24.0-44.0) % Monocytes % (0.0-12.0) % Eosinophils % (0.00-5.0) % Basophils % (0.0-0.4) % Absolute Granulocytes (1.4-6.9) Basophils # (0-0.4) PT 11.9 (9.95-12.35) SECONDS INR 1.05 (0.8-3.0) APTT 38.8 H (25.3-37.0) SECONDS Sodium 142 (137-145) mmol/L Potassium 3.9 (3.5-5.1) mmol/L Chloride 109 H (98-107) mmol/L Carbon Dioxide 24 (22-30) mmol/L Anion Gap 12.6 (5-15) MEQ/L BUN 27 H (7-17) mg/dL Creatinine 1.05 H (0.52-1.04) mg/dL Estimated GFR 56.1 ML/MIN Glucose 122 H (74-106) mg/dL Hemoglobin A1c 5.94 (4.5-6.0) % Calcium 9.3 (8.4-10.2) mg/dL 06/19/19 Range/Units 20:20 WBC 7.8 (4.0-10.5) K/mm3 RBC 4.26 (4.1-5.4) M/mm3 Hgb 13.3 (12.0-16.0) gm/dl Hct 41.1 (35-47) % MCV 96.5 (78-100) fl MCH 31.2 (26-32) pg MCHC 32.4 (32-36) g/dl RDW 14.0 (11.5-14.0) % Plt Count 264 (150-450) K/mm3 MPV 10.0 (7.5-11.0) fl Gran % 46.2 (36.0-66.0) % Eos # (Auto) 0.39 (0-0.5) Absolute Lymphs (auto) 3.23 (1.0-4.6) Absolute Monos (auto) 0.54 (0.0-1.3) Lymphocytes % 41.4 (24.0-44.0) % Monocytes % 6.9 (0.0-12.0) % Eosinophils % 5.0 (0.00-5.0) % Basophils % 0.5 (0.0-0.4) % Absolute Granulocytes 3.61 (1.4-6.9) Basophils # 0.04 (0-0.4) PT (9.95-12.35) SECONDS INR (0.8-3.0) APTT (25.3-37.0) SECONDS Sodium (137-145) mmol/L Potassium (3.5-5.1) mmol/L Chloride (98-107) mmol/L Carbon Dioxide (22-30) mmol/L Anion Gap (5-15) MEQ/L BUN (7-17) mg/dL Creatinine (0.52-1.04) mg/dL Estimated GFR ML/MIN Glucose (74-106) mg/dL Hemoglobin A1c (4.5-6.0) % Calcium (8.4-10.2) mg/dL - Progress Progress: unchanged Progress Note: 06/19/19 20:38 Patient presents with painless vision loss of the left eye. I am concerned for a cardio at this time. Differential also includes retinal detachment in addition to vitreous hemorrhage. I will go ahead and obtain neurocranial imaging consisting of CTA head neck to eval for evidence of carotid stenosis and for evidence of stroke. Once her imaging results I will consider transferring the patient to a tertiary facility with ophthalmology in addition to neurology for further evaluation and management. 06/19/19 21:38 [facility] has called [facility] and [facility] apparently does not have ophthalmology available. [facility] is currently being paged. 06/19/19 21:43 [facility] apparently does not have ophthalmology on-call. The [facility] managed to find a Dr. Badillo's number, the patient's supervisor title, and is calling at this time. 06/19/19 22:[address] Badillo, supervisor title, and discussed the case with him. He is familiar with this patient and stated that the patient had branches of her left retinal artery that had revascularized and subsequent vitreous hemorrhage. He is suspicious that the patient likely suffered from another vitreous hemorrhage again. He did not think anything needed to be done tonight and recommended the patient follow-up with him this week in his office for further evaluation and management. He recommended the patient keep taking her aspirin as prescribed. 06/20/19 03:24 Ultimately, the patient was discharged home. I offered her transfer to a facility that had neurology capability however she refused stating she wanted to go home and just follow-up with ophthalmology as an outpatient because she had dogs and a that does home dialysis to take care of tonight. I informed her that her visual changes may be secondary to a possible retinal artery occlusion or a retinal detachment or a vitreous. I feel that retinal artery occlusion with is the likely diagnosis timeframe, specifically onset of her symptoms there is no intervention that can improve her site at this point ( massaging the eyeball) given that she is numerous hours out from the onset of her symptoms if this is indeed a central retinal artery occlusion. This is considered a CVA equivalent. She was instructed to follow-up with her primary care provider given her evidence of carotid stenosis tonight on her CTA. CTA showed no evidence of CVA or carotid dissection which was also on the differential. Has no focal deficits at this time. 06/20/19 03:26 Discussed with : Other ([place], ophthalmology) Counseled pt/family regarding: lab results, diagnosis, rad results - Departure Departure Disposition: Home Clinical Impression: Vitreous hemorrhage, Left carotid artery stenosis, CRAO (central retinal artery occlusion), Vision loss of left eye Condition: Stable Critical Care Time: No Referrals: EMERSON BADILLO MD [NON-STAFF PHY W/O PRIVILEGES] - Instructions: Carotid Artery Stenosis (DC) Additional Instructions: Please follow-up with your supervisor title this week. Please call the office first thing in the morning to arrange follow-up. You may have an occlusion of the retinal artery in your left eye and subsequent hemorrhage and will need additional management. To the emergency department immediately if you start to notice any focal weakness in your arms or legs as well as numbness to experience vision loss in your right eye. You also have some narrowing in the left carotid artery. He will need to follow -up with your primary care provider for further evaluation and management.
[2019-06-19 20:23] LABS: Absolute Neutrophil Ct (ANC) 3.61 (1.4-6.9); BASOPHIL % 0.5 % (0.0-0.4); Basophil (Absolute #) 0.04 (0-0.4); Eosinophil (Absolute #) 0.39 (0-0.5); Hematocrit 41.1 % (35-47); Hemoglobin 13.3 gm/dl (12.0-16.0); Lymphocyte (Absolute #) 3.23 (1.0-4.6); Lymphocytes % 41.4 % (24.0-44.0); Mean Cell Volume 96.5 fl (78-100); Mean Corpuscular Hemoglobin 31.2 pg (26-32); Mean Corpuscular Hgb Concent. 32.4 g/dl (32-36); Monocyte (Absolute #) 0.54 (0.0-1.3); Monocytes % 6.9 % (0.0-12.0); Neutrophil % 46.2 % (36.0-66.0); Platelet Count 264 K/mm3 (150-450); Red Blood Count 4.26 M/mm3 (4.1-5.4); White Blood Count 7.8 K/mm3 (4.0-10.5)
[2019-06-19 20:28] LABS: INR 1.05 (0.8-3.0); PROTIME 11.9 SECONDS (9.95-12.35)
[2019-06-19 20:31] LABS: PTT 38.8 SECONDS (25.3-37.0)
[2019-06-19 20:32] LABS: ANION GAP 12.6 MEQ/L (5-15); Calcium 9.3 mg/dL (8.4-10.2); Creatinine 1 1.05 mg/dL (0.52-1.04); Potassium 3.9 mmol/L (3.5-5.1)
[2019-06-19 21:58] VITALS: BP 165/82; PULSE 66; O2SAT 99
--- NOTE | 2019-06-20 09:00 | XRAY ---
Indication: Left eye vision loss. History stroke with left eye hemorrhagic bleed. Conventional contrast enhanced CTA neck was performed using 80 cc Isovue 370 contrast. Two-dimensional sagittal and coronal reformatted images obtained. Additional 3-dimensional reformatted images obtained using a separate workstation. Comparison: None Visualized aortic arch demonstrates minimal calcifications without aneurysm/dissection. Normal patent branching right brachiocephalic, left common carotid, and left subclavian arteries. Examination of the right carotid circulation demonstrates widely patent common carotid artery. At the level of the bulb, there is mild/moderate eccentric heterogeneous plaquing extending into the origin of the internal carotid artery producing 40-50% stenosis. Remaining internal and external carotid arteries are normal in CTA appearance. Examination of the left carotid circulation demonstrates widely patent common carotid artery. At the level above, there is moderate heterogeneous plaquing extending into the origin of the internal carotid artery producing 80-90% stenosis. Remaining internal and external carotid arteries are normal in course and caliber. Examination of the vertebral arteries demonstrates minimal scattered calcifications bilaterally without critical stenosis/obstruction.. Jugular veins are bilaterally normal. Thyroid gland enhances homogeneously. Supra and infraglottic airway widely patent. Lung apices demonstrates minimal subsegmental atelectasis/scarring. Cervical spine intact with mild C4-C6 degenerative changes. Incidental sternotomy wires. Patient is edentulous. CTA brain reported separately. Impression: 1. Heterogeneous arteriosclerotic plaquing in the right carotid bulb and internal carotid artery as detailed producing 40-50% stenosis. 2. Heterogeneous plaquing in the left carotid bulb and internal carotid artery as detailed producing 80-90% stenosis. 3. Minimal scattered plaquing in both vertebral arteries without critical stenosis/obstruction. 4. Incidental C4-C6 degenerative changes. Comment: Preliminary interpretation was made by [facility] who does not report findings in the right carotid circulation.
--- NOTE | 2019-06-20 09:37 | XRAY ---
Indication: Left eye vision loss. History stroke with left eye hemorrhagic bleed. Conventional contrast enhanced CTA brain was performed using 80 cc Isovue 370 contrast. Two-dimensional sagittal and coronal reformatted images obtained. Additional 3-dimensional reformatted images obtained using a separate workstation. Comparison: None CTA neck reported separately. Distal parasellar internal carotid arteries demonstrates minimal calcifications bilaterally without critical stenosis/obstruction. Origin/proximal ophthalmic arteries are not well seen due to slice acquisition. More distal ophthalmic arteries are seen and appear bilaterally symmetric. Normal carotid terminus with normal branching A1 and M1 segments bilaterally. More distal anterior and middle cerebral arteries are normal in CTA appearance. Anterior communicating artery not seen. Posterior communicating arteries are bilaterally symmetric. Posterior circulation demonstrating minimal calcifications in the distal vertebral artery bilaterally without critical stenosis/obstruction. Normal branching posterior inferior cerebellar arteries bilaterally. Right vertebral artery is larger in size. Basilar artery is normal in course and caliber with normal branching posterior cerebral, superior cerebellar, and anterior inferior cerebral arteries bilaterally. Brain parenchyma demonstrates age-appropriate global atrophy, minimal periventricular degenerative micro-ischemia bilaterally, and remote right caudate lacunar infarct. No abnormal enhancing intra or extra-axial mass. Fourth ventricle is midline without hydrocephalus. Starkey-white matter differentiation preserved. Bony calvarium intact. Paranasal sinuses and mastoid air cells are clear. Impression: 1. Minimal scattered calcifications in the distal internal carotid and vertebral arteries bilaterally without critical stenosis/obstruction. 2. Remaining CTA brain is negative. 2. Incidental global atrophy and degenerative micro-ischemia within normal limits for patient's age. Also remote right caudate lacunar infarct. Comment: Preliminary interpretation was made by [facility] who reports incidental origin of the right posterior cerebral artery which I disagree. There is normal origin of the right posterior cerebral artery off the basilar artery.
== END 2019-06-19 22:19 | disposition home or self-care (01) ==
LOC: ED 18:45
DX: H43.12 Vitreous hemorrhage, left eye (principal); I65.22 Occlusion and stenosis of left carotid artery; H34.12 Central retinal artery occlusion, left eye; I25.10 Atherosclerotic heart disease of native coronary artery without angina pectoris; I10 Essential (primary) hypertension; E78.00 Pure hypercholesterolemia, unspecified; I25.2 Old myocardial infarction; Z79.899 Other long term (current) drug therapy; M79.7 Fibromyalgia; Z72.0 Tobacco use
CPT/HCPCS: 36000; 36415; 70496; 70498; 80048; 83036; 85025; 85610; 85730; 93005; 93041; 94760; 99284; A9270-GY

== ENCOUNTER 2020-06-28 14:55 | Observation (INO) | payer MEDICARE ==
[2020-06-28] MEDS ORDERED: Sodium Chloride 0.9% 1000 ML 1,000 ML IV STA (15:08)
[2020-06-28] MEDS ORDERED: Zofran 4 MG/2 ML VIAL IV ONE (15:08)
--- NOTE | 2020-06-28 15:13 | ERPHSYRPT ---
- History of Present Illness Time Seen by Provider: 06/28/20 14:57 Historian: patient Exam Limitations: no limitations Patient Subjective Stated Complaint: " I got a cramp in my leg and then I felt really weird and I think I passed out for a little while, when I woke up my dog was trying to put a blanket on me". Triage Nursing Assessment: Pt presents to ER by EMS Physician History: Patient is here with syncopal episode at home. Patient states that she had a cramp in her left thigh. She immediately then sat down. She states She knew she woke up on the floor. Per her she was incontinent of urine. She previously had triple bypass. She denies any preceding prodrome. Note chest pain, shortness of breath, nausea, vomiting. Otherwise patient has a normal neurological exam without obvious abnormalities. Location: generalized Quality: syncope Radiation: none Severity: moderate Duration: just [employer] Timing: suddenly Modifying factors/associated signs and symptoms: none tried Aspirin Treatment Today: no aspirin today Allergies/Adverse Reactions: amoxicillin trihydrate [From Augmentin] Adverse Reaction (Severe, Verified 06/28/20 15:10) Vomiting potassium clavulanate [From Augmentin] Adverse Reaction (Severe, Verified 06/28/20 15:10) Vomiting Home Medications: Atorvastatin Calcium [Lipitor] 80 mg PO DAILY 05/07/18 [History] Furosemide 20 mg [Lasix 20 mg] 20 mg PO DAILY 05/07/18 [History] Lisinopril 20 mg [Zestril 20 MG] 20 mg PO BID 05/07/18 [History] Alendronate Sodium 70 mg [Fosamax 70 MG] 70 mg PO WEEKLY 03/08/19 [History] Aspirin EC 325 mg [Ecotrin 325 MG] 81 mg PO DAILY 03/08/19 [History] Metoprolol Tartrate 50 mg PO BID 03/08/19 [History] Nifedipine [Nifedipine ER] 30 mg PO BID 03/08/19 [History] Melatonin 10 mg PO HS 06/28/20 [History] Hx Tetanus, Diphtheria Vaccination/Date Given: Yes Hx Influenza Vaccination/Date Given: Yes Hx Pneumococcal Vaccination/Date Given: Yes Immunizations Up to Date: Yes Travel Risk - International Travel Have you traveled outside of the country in past 3 weeks: No - Coronavirus Screening Are you exhibiting any of the following symptoms?: No Close contact with a COVID-19 positive Pt in past 14-21 Days: No - Vaccine Status Have you recieved a Covid-19 vaccination: No - Review of Systems Constitutional: No Fever, No Chills Eyes: No Symptoms Ears, Nose, & Throat: No Symptoms Respiratory: No Cough, No Dyspnea Cardiac: Syncope, No Chest Pain, No Edema Abdominal/Gastrointestinal: No Abdominal Pain, No Nausea, No Vomiting, No Diarrhea Genitourinary Symptoms: No Dysuria Musculoskeletal: No Back Pain, No Neck Pain Skin: No Rash Neurological: No Dizziness, No Focal Weakness, No Sensory Changes Psychological: No Symptoms Endocrine: No Symptoms All Other Systems: Reviewed and Negative - Past Medical History Pertinent Past Medical History: Yes Neurological History: No Pertinent History ENT History: No Pertinent History Cardiac History: Coronary Artery Disease, High Cholesterol, Hypertension, Myocardial Infarction ([place]) Respiratory History: No Pertinent History Endocrine Medical History: No Pertinent History Musculoskeletal History: Arthritis, Fibromyalgia GI Medical History: No Pertinent History History: No Pertinent History Psycho-Social History: Depression Female Reproductive Disorders: No Pertinent History Other Medical History: 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 - Past Surgical History Past Surgical History: Yes Neuro Surgical History: No Pertinent History Cardiac: CABG, Cardiac Catheterization, Cardiac Stent Respiratory: No Pertinent History Gastrointestinal: Appendectomy Genitourinary: No Pertinent History Musculoskeletal: No Pertinent History Female Surgical History: Hysterectomy, Tubal Ligation Other Surgical History: 4 TOTAL STENTS 2016 - Social History Smoking Status: Current every day smoker How long have you smoked: 49 Exposure to second hand smoke: No Drug Use: none Patient Lives Alone: No - Female History Hx Now: No - Nursing Vital Signs Nursing Vital Signs: Initial Vital Signs Temperature 97.7 F 06/28/20 15:01 Pulse Rate 56 L 06/28/20 15:01 Respiratory Rate 14 06/28/20 15:01 Blood Pressure 100/54 06/28/20 15:01 O2 Sat by Pulse Oximetry 96 06/28/20 15:01 Pain Scale Pain Intensity 0 - Physical Exam General Appearance: no apparent distress, alert Eye Exam: PERRL/EOMI, eyes nml inspection Ears, Nose, Throat Exam: normal ENT inspection, moist mucous membranes Neck Exam: normal inspection, non-tender, supple, full range of motion Respiratory Exam: normal breath sounds, lungs clear, No respiratory distress Cardiovascular Exam: regular rate/rhythm, normal heart sounds Gastrointestinal/Abdomen Exam: soft, No tenderness, No mass Back Exam: normal inspection, No CVA tenderness, No vertebral tenderness Extremity Exam: normal inspection, normal range of motion Neurologic Exam: alert, oriented x 3, cooperative, normal mood/affect, sensation nml, No motor deficits Skin Exam: normal color, warm, dry SpO2: 96 Comments: 06/28/20 15:12 Motor: There is no pronator drift of out-stretched arms. Muscle bulk and tone are normal. Strength is full bilaterally. Reflexes: Reflexes are 2+ and symmetric at the biceps, triceps, knees, and ankle s. Plantar responses are flexor. Sensory: Light touch sense are intact in bilateral upper and lower extremities. There is no sign of neglect. Coordination: Rapid alternating movements are intact. There is no dysmetria on [id number] and [id number]. There are no abnormal or extraneous movements. Romberg is absent. Gait/Stance: Posture is normal. Gait is steady with normal steps, base, arm sw ing, and turning. Heel and toe walking are normal. Tandem gait is normal. - Course Nursing assessment & vital signs reviewed: Yes EKG Interpreted by Me: Sinus Rhythm Ordered Tests: Active Orders 24 hr Category Date Time Status Special Population Paraprofessional STAT Care 06/28/20 15:09 Active EKG-ER Only STAT Care 06/28/20 15:08 Active IV Insertion STAT Care 06/28/20 15:08 Active CHEST 2 VIEWS (PA AND LAT) Stat Exams 06/28/20 15:08 Completed CHEST WITH CONTRAST [CT] Stat Exams 06/28/20 16:10 Completed CBC W DIFF Stat Lab 06/28/20 13:30 Completed CMP Stat Lab 06/28/20 13:30 Completed D-DIMER QUANTITATIVE Stat Lab 06/28/20 13:30 Completed NT PRO BNP Stat Lab 06/28/20 13:30 Completed PROTIME WITH INR Stat Lab 06/28/20 13:30 Completed TROPONIN Q3H Lab 06/28/20 13:30 Completed TROPONIN Q3H Lab 06/28/20 18:15 Ordered TROPONIN Q3H Lab 06/28/20 21:15 Ordered TROPONIN Q3H Lab 06/29/20 00:15 Ordered TROPONIN Q3H Lab 06/29/20 03:15 Ordered Transfer Order Routine Transfer 06/28/20 Ordered Medication Summary Discontinued Medications Generic Name Dose Route Start Last Admin Trade Name Taisha PRN Reason Stop Dose Admin Aspirin 324 mg 06/28/20 15:08 06/28/20 15:50 Baby Aspirin 81 Mg Chew PO 06/28/20 15:09 Not Given STAT ONE Aspirin Confirm 06/28/20 15:15 Baby Aspirin 81 Mg Chew Administered 06/28/20 15:16 Dose 324 mg .ROUTE .STK-MED ONE Sodium Chloride 1,000 mls @ 999 mls/hr 06/28/20 15:08 06/28/20 16:29 Sodium Chloride 0.9% 1000 Ml IV 06/28/20 16:08 Infused .Q1H1M STA Infusion Sodium Chloride Confirm 06/28/20 15:16 Sodium Chloride 0.9% 1000 Ml Administered 06/28/20 15:17 Dose 1,000 mls @ ud .ROUTE .STK-MED ONE Ondansetron HCl 4 mg 06/28/20 15:08 06/28/20 15:18 Zofran 4 Mg/2 Ml Vial IV 06/28/20 15:09 4 mg STAT ONE Administration Ondansetron HCl Confirm 06/28/20 15:15 Zofran 4 Mg/2 Ml Vial Administered 06/28/20 15:16 Dose 4 mg .ROUTE .STK-MED ONE Lab/Rad Data: Laboratory Result Diagrams 06/28/20 13:30 06/28/20 13:30 Laboratory Results 06/28/20 06/28/20 06/28/20 Range/Units 13:30 13:30 13:30 WBC (4.0-10.5) K/mm3 RBC (4.1-5.4) M/mm3 Hgb (12.0-16.0) gm/dl Hct (35-47) % MCV (78-100) fl MCH (26-32) pg MCHC (32-36) g/dl RDW (11.5-14.0) % Plt Count (150-450) K/mm3 MPV (7.5-11.0) fl Gran % (36.0-66.0) % Eos # (Auto) (0-0.5) Absolute Lymphs (auto) (1.0-4.6) Absolute Monos (auto) (0.0-1.3) Lymphocytes % (24.0-44.0) % Monocytes % (0.0-12.0) % Eosinophils % (0.00-5.0) % Basophils % (0.0-0.4) % Absolute Granulocytes (1.4-6.9) Basophils # (0-0.4) PT 13.3 H (9.95-12.35) SECONDS INR 1.18 (0.8-3.0) D-Dimer 750 H* (215-500) ng/mL Sodium 140 (137-145) mmol/L Potassium 4.8 (3.5-5.1) mmol/L Chloride 104 (98-107) mmol/L Carbon Dioxide 28 (22-30) mmol/L Anion Gap 13.2 (5-15) MEQ/L BUN 16 (7-17) mg/dL Creatinine 1.18 H (0.52-1.04) mg/dL Estimated GFR 48.9 ML/MIN Glucose 127 H (74-106) mg/dL Calcium 10.2 (8.4-10.2) mg/dL Total Bilirubin 0.50 (0.2-1.3) mg/dL AST 22 (14-36) U/L ALT 20 (0-35) U/L Alkaline Phosphatase 89 (38-126) U/L Troponin I < 0.012 (0.000-0.034) ng/mL NT-Pro-B Natriuret Pep 342 (0-900) pg/mL Serum Total Protein 7.1 (6.3-8.2) g/dL Albumin 4.5 (3.5-5.0) g/dL 06/28/20 Range/Units 13:30 WBC 10.1 (4.0-10.5) K/mm3 RBC 4.50 (4.1-5.4) M/mm3 Hgb 13.9 (12.0-16.0) gm/dl Hct 43.7 (35-47) % MCV 97.1 (78-100) fl MCH 30.9 (26-32) pg MCHC 31.8 L (32-36) g/dl RDW 13.6 (11.5-14.0) % Plt Count 298 (150-450) K/mm3 MPV 9.6 (7.5-11.0) fl Gran % 71.1 H (36.0-66.0) % Eos # (Auto) 0.24 (0-0.5) Absolute Lymphs (auto) 2.04 (1.0-4.6) Absolute Monos (auto) 0.61 (0.0-1.3) Lymphocytes % 20.2 L (24.0-44.0) % Monocytes % 6.0 (0.0-12.0) % Eosinophils % 2.4 (0.00-5.0) % Basophils % 0.3 (0.0-0.4) % Absolute Granulocytes 7.19 H (1.4-6.9) Basophils # 0.03 (0-0.4) PT (9.95-12.35) SECONDS INR (0.8-3.0) D-Dimer (215-500) ng/mL Sodium (137-145) mmol/L Potassium (3.5-5.1) mmol/L Chloride (98-107) mmol/L Carbon Dioxide (22-30) mmol/L Anion Gap (5-15) MEQ/L BUN (7-17) mg/dL Creatinine (0.52-1.04) mg/dL Estimated GFR ML/MIN Glucose (74-106) mg/dL Calcium (8.4-10.2) mg/dL Total Bilirubin (0.2-1.3) mg/dL AST (14-36) U/L ALT (0-35) U/L Alkaline Phosphatase (38-126) U/L Troponin I (0.000-0.034) ng/mL NT-Pro-B Natriuret Pep (0-900) pg/mL Serum Total Protein (6.3-8.2) g/dL Albumin (3.5-5.0) g/dL - Progress Progress: improved Air Movement: good Progress Note: 06/28/20 15:12 Differential diagnosis includes STEMI, infection, pneumonia, PE attack, arrhythmia, other electrolyte abnormality. We'll obtain basic labs, fluids, EKG, troponin, chest x-ray - EKG shows no ST changes - my read. See full read below. - O2 saturations consistently greater than 95%. - CXR shows no pneumonia, pneumothorax - my read 06/28/20 17:29 Patient had a syncopal episode today. First set of troponins was negative. D- dimer elevated. CT of the chest was normal. No PE. Patient most likely needs cardiac rule out, echocardiogram, cardiology consultation. I did discuss over the phone with on-call physician, Dr. Mahmood. He stated that patient could be admitted here. Stated that they could do a telecardiology consult and the rest of the work-up here. I do feel this is reasonable. Be admitted to the hospital, observation status. I did discuss this with the patient and her . I answered all questions. Discussed with : Chuyita Will see patient in: hospital (observation) Counseled pt/family regarding: lab results, diagnosis, need for follow-up, rad results - Departure Departure Disposition: Observation Clinical Impression: Syncope Condition: Stable Critical Care Time: No Referrals: SREEDHAR RAY [Primary Care Provider] -
[2020-06-28] MEDS ORDERED: Zofran 4 MG/2 ML VIAL ONE (15:15)
[2020-06-28] MEDS ORDERED: BABY ASPIRIN 81 MG CHEW ONE (15:15)
[2020-06-28] MEDS ORDERED: Sodium Chloride 0.9% 1000 ML 1,000 ML ONE (15:16)
[2020-06-28] MEDS: BABY ASPIRIN 81 MG CHEW PO ONE ×2 (15:17→15:50)
--- NOTE | 2020-06-28 15:31 | XRAY ---
Indication: Short of breath and weakness. Comparison: January 10, 2019. PA/lateral chest remains clear. Heart not enlarged again with CABG surgery. Bony thorax intact again with mild osteopenia, degenerative changes, and mild scoliosis. Impression: Continued nonacute chest with chronic features.
[2020-06-28 15:54] LABS: INR 1.18 (0.8-3.0); PROTIME 13.3 SECONDS (9.95-12.35)
[2020-06-28 15:58] LABS: Absolute Neutrophil Ct (ANC) 7.19 (1.4-6.9); BASOPHIL % 0.3 % (0.0-0.4); Basophil (Absolute #) 0.03 (0-0.4); Eosinophil % 2.4 % (0.00-5.0); Eosinophil (Absolute #) 0.24 (0-0.5); Hematocrit 43.7 % (35-47); Hemoglobin 13.9 gm/dl (12.0-16.0); Lymphocyte (Absolute #) 2.04 (1.0-4.6); Lymphocytes % 20.2 % (24.0-44.0); Mean Cell Volume 97.1 fl (78-100); Mean Corpuscular Hemoglobin 30.9 pg (26-32); Mean Corpuscular Hgb Concent. 31.8 g/dl (32-36); Mean Platelet Volume 9.6 fl (7.5-11.0); Monocyte (Absolute #) 0.61 (0.0-1.3); Neutrophil % 71.1 % (36.0-66.0); Platelet Count 298 K/mm3 (150-450); Red Cell Distribution Width 13.6 % (11.5-14.0); White Blood Count 10.1 K/mm3 (4.0-10.5)
[2020-06-28 16:07] LABS: ALBUMIN 4.5 g/dL (3.5-5.0); ANION GAP 13.2 MEQ/L (5-15); BILIRUBIN,TOTAL 0.5 mg/dL (0.2-1.3); Calcium 10.2 mg/dL (8.4-10.2); Creatinine 1 1.18 mg/dL (0.52-1.04); EST GLOMERULAR FILTRATION RATE 48.9 ML/MIN; Potassium 4.8 mmol/L (3.5-5.1); Total Protein 7.1 g/dL (6.3-8.2)
--- NOTE | 2020-06-28 17:04 | XRAY ---
Indication: Syncope. Elevated d-dimer. Multiple contiguous axial images obtained through the chest using 100 cc Isovue 370 contrast and PE protocol. Comparison: None There is good opacification of the pulmonary arteries to include the lobar and segmental branches. No pulmonary embolus. Heart is borderline enlarged with CABG surgery. Aorta is mildly arteriosclerotic without aneurysm/dissection. No pathologic mediastinal/hilar lymphadenopathy. Small hiatal hernia. Lungs demonstrates minimal pulmonary emphysema in both upper lobes. Lingula demonstrates minimal fibrosis/scarring and tiny calcified granuloma. Posterior right lower lobe demonstrates 3 mm peripheral noncalcified nodule possibly granulomatous. No infiltrate or effusion. Bony thorax intact with mild degenerative changes throughout the spine. Limited upper abdomen demonstrates mild diffuse fatty liver and 1.6 cm right mid renal exophytic cyst. Impression: 1. Negative pulmonary embolus. No acute cardiopulmonary abnormalities. 2. Incidental tiny calcified/noncalcified pulmonary granulomas, small hiatal hernia, fatty liver, and right renal cyst.
[2020-06-28 18:29] LABS: INFLUENZA A NEGATIVE (NEGATIVE); INFLUENZA B NEGATIVE (NEGATIVE); RESPIRATORY SYNCTIAL VIRUS NEGATIVE (Negative)
[2020-06-28] MEDS ORDERED: MAALOX ES 30 ML UNIT DOSE PO PRN (19:56)
[2020-06-28] MEDS ORDERED: Zofran 4 MG/2 ML VIAL IV PRN (19:56)
[2020-06-28] MEDS ORDERED: MILK OF MAGNESIA 30 ML PO PRN (19:56)
[2020-06-28] MEDS ORDERED: TYLENOL 325 MG PO PRN (19:56)
[2020-06-28] MEDS ORDERED: Senokot-S Tablet PO PRN (19:56)
[2020-06-28] MEDS: Lopressor 50 MG PO SCH (22:16)
[2020-06-28] MEDS: Zestril 20 MG PO SCH (22:16)
[2020-06-29 04:05] LABS: Risk Ratio 4.6
--- NOTE | 2020-06-29 08:39 | PCM.HP ---
History of Present Illness - Chief Complaint Chief Complaint: syncope History of Present Illness: is a 65 year old female with known CAD, hx of CABG x 3 vessels, she was sitting in the floor rubbing out a leg cramp and had a true syncopal event. she lost control of her bladder, it was brief and she awoke, no confusion following the incident. never had a similar episode in the past. - Review of Systems Constitutional: No Fever, No Chills Cardiac: Syncope, No Chest Pain, No Palpitations Abdominal/Gastrointestinal: No Abdominal Pain, No Nausea, No Vomiting, No Diarrhea Skin: No Rash Neurological: No Dizziness, No Focal Weakness, No Sensory Changes All Other Systems: Reviewed and Negative Medications & Allergies Home Medications: Home Medication List Atorvastatin Calcium [Lipitor] 80 mg PO DAILY 05/07/18 [History Confirmed 06/28/20] Furosemide 20 mg [Lasix 20 mg] 20 mg PO DAILY 05/07/18 [History Confirmed 06/28/20] Lisinopril 20 mg [Zestril 20 MG] 20 mg PO BID 05/07/18 [History Confirmed 06/28/20] Alendronate Sodium 70 mg [Fosamax 70 MG] 70 mg PO WEEKLY 03/08/19 [History Confirmed 06/28/20] Aspirin EC 325 mg [Ecotrin 325 MG] 81 mg PO DAILY 03/08/19 [History Confirmed 06/28/20] Metoprolol Tartrate 50 mg PO BID 03/08/19 [History Confirmed 06/28/20] Nifedipine [Nifedipine ER] 30 mg PO BID 03/08/19 [History Confirmed 06/28/20] Melatonin 10 mg PO HS 06/28/20 [History Confirmed 06/28/20] Allergies/Adverse Reactions: Allergies Allergy/AdvReac Type Severity Reaction Status Date / Time amoxicillin trihydrate AdvReac Severe Vomiting Verified 06/28/20 15:10 [From Augmentin] potassium clavulanate AdvReac Severe Vomiting Verified 06/28/20 15:10 [From Augmentin] - Past Medical History Past Medical History: Yes Neurological History: No Pertinent History ENT History: No Pertinent History Cardiac History: Coronary Artery Disease, High Cholesterol, Hypertension, Myocardial Infarction ([place]) Respiratory History: No Pertinent History Endocrine Medical History: No Pertinent History Musculoskelatal History: Arthritis, Fibromyalgia GI Medical History: No Pertinent History History: No Pertinent History Pyscho-Social History: Depression Reproductive Disorders: No Pertinent History Comment: 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 - Female History Are you now?: No - Past Surgical History Past Surgical History: Yes Neuro Surgical History: No Pertinent History Cardiac History: CABG, Cardiac Catheterization, Cardiac Stent Respiratory Surgery: No Pertinent History GI Surgical History: Appendectomy Genitourinary Surgical Hx: No Pertinent History Musculskeletal Surgical Hx: No Pertinent History Female Surgical History: Hysterectomy, Tubal Ligation Other Surgical History: 4 TOTAL STENTS 2016 - Social History Smoking Status: Current some day smoker How long have you smoked: 50 yrs Exposure to second hand smoke: Yes Alcohol: None Drug Use: none - Physical Exam Vital Signs: Vital Signs - 24 hr Temp Pulse Resp BP Pulse Ox 06/29/20 07:53 97.7 F 58 L 18 132/63 96 06/29/20 07:33 16 06/29/20 07:21 93 L 06/29/20 04:00 98.3 F 63 18 125/61 96 06/29/20 00:00 18 06/28/20 23:51 96 06/28/20 23:35 98.7 F 62 18 113/57 95 06/28/20 20:26 97.7 F 71 18 110/75 98 06/28/20 19:56 98 06/28/20 19:00 62 20 117/60 96 06/28/20 18:05 62 18 132/67 96 06/28/20 17:32 96 06/28/20 16:30 94/53 06/28/20 15:01 97.7 F 56 L 14 100/54 96 General Appearance: no apparent distress, obese Neurologic Exam: alert, oriented x 3, cooperative Respiratory Exam: normal breath sounds, lungs clear, No respiratory distress Cardiovascular Exam: regular rate/rhythm, normal heart sounds, normal peripheral pulses, other (well healed midline sternotomy scar) Gastrointestinal/Abdomen Exam: soft, normal bowel sounds, No tenderness, No mass Skin Exam: normal color, warm, dry, No rash Results - Labs Lab/Micro Results: Lab Results-Last 24 Hours 06/28/20 06/28/20 06/28/20 Range/Units 13:30 13:30 13:30 WBC 10.1 (4.0-10.5) K/mm3 RBC 4.50 (4.1-5.4) M/mm3 Hgb 13.9 (12.0-16.0) gm/dl Hct 43.7 (35-47) % MCV 97.1 (78-100) fl MCH 30.9 (26-32) pg MCHC 31.8 L (32-36) g/dl RDW 13.6 (11.5-14.0) % Plt Count 298 (150-450) K/mm3 MPV 9.6 (7.5-11.0) fl Gran % 71.1 H (36.0-66.0) % Eos # (Auto) 0.24 (0-0.5) Absolute Lymphs (auto) 2.04 (1.0-4.6) Absolute Monos (auto) 0.61 (0.0-1.3) Lymphocytes % 20.2 L (24.0-44.0) % Monocytes % 6.0 (0.0-12.0) % Eosinophils % 2.4 (0.00-5.0) % Basophils % 0.3 (0.0-0.4) % Absolute Granulocytes 7.19 H (1.4-6.9) Basophils # 0.03 (0-0.4) PT 13.3 H (9.95-12.35) SECONDS INR 1.18 (0.8-3.0) D-Dimer 750 H* (215-500) ng/mL Sodium 140 (137-145) mmol/L Potassium 4.8 (3.5-5.1) mmol/L Chloride 104 (98-107) mmol/L Carbon Dioxide 28 (22-30) mmol/L Anion Gap 13.2 (5-15) MEQ/L BUN 16 (7-17) mg/dL Creatinine 1.18 H (0.52-1.04) mg/dL Estimated GFR 48.9 ML/MIN Glucose 127 H (74-106) mg/dL Calcium 10.2 (8.4-10.2) mg/dL Total Bilirubin 0.50 (0.2-1.3) mg/dL AST 22 (14-36) U/L ALT 20 (0-35) U/L Alkaline Phosphatase 89 (38-126) U/L Troponin I (0.000-0.034) ng/mL NT-Pro-B Natriuret Pep 342 (0-900) pg/mL Serum Total Protein 7.1 (6.3-8.2) g/dL Albumin 4.5 (3.5-5.0) g/dL Triglycerides (30-150) mg/dL Cholesterol (50-200) mg/dL LDL Cholesterol (30-100) mg/dL HDL Cholesterol (40-60) mg/dL Heart Disease Risk Ratio Influenza Type A Ag (NEGATIVE) Influenza Type B Ag (NEGATIVE) RSV (PCR) (Negative) SARS-CoV-2 (PCR) (NEGATIVE) 06/28/20 06/28/20 06/28/20 Range/Units 13:30 17:36 18:05 WBC (4.0-10.5) K/mm3 RBC (4.1-5.4) M/mm3 Hgb (12.0-16.0) gm/dl Hct (35-47) % MCV (78-100) fl MCH (26-32) pg MCHC (32-36) g/dl RDW (11.5-14.0) % Plt Count (150-450) K/mm3 MPV (7.5-11.0) fl Gran % (36.0-66.0) % Eos # (Auto) (0-0.5) Absolute Lymphs (auto) (1.0-4.6) Absolute Monos (auto) (0.0-1.3) Lymphocytes % (24.0-44.0) % Monocytes % (0.0-12.0) % Eosinophils % (0.00-5.0) % Basophils % (0.0-0.4) % Absolute Granulocytes (1.4-6.9) Basophils # (0-0.4) PT (9.95-12.35) SECONDS INR (0.8-3.0) D-Dimer (215-500) ng/mL Sodium (137-145) mmol/L Potassium (3.5-5.1) mmol/L Chloride (98-107) mmol/L Carbon Dioxide (22-30) mmol/L Anion Gap (5-15) MEQ/L BUN (7-17) mg/dL Creatinine (0.52-1.04) mg/dL Estimated GFR ML/MIN Glucose (74-106) mg/dL Calcium (8.4-10.2) mg/dL Total Bilirubin (0.2-1.3) mg/dL AST (14-36) U/L ALT (0-35) U/L Alkaline Phosphatase (38-126) U/L Troponin I < 0.012 < 0.012 (0.000-0.034) ng/mL NT-Pro-B Natriuret Pep (0-900) pg/mL Serum Total Protein (6.3-8.2) g/dL Albumin (3.5-5.0) g/dL Triglycerides (30-150) mg/dL Cholesterol (50-200) mg/dL LDL Cholesterol (30-100) mg/dL HDL Cholesterol (40-60) mg/dL Heart Disease Risk Ratio Influenza Type A Ag NEGATIVE (NEGATIVE) Influenza Type B Ag NEGATIVE (NEGATIVE) RSV (PCR) NEGATIVE (Negative) SARS-CoV-2 (PCR) NEGATIVE (NEGATIVE) 06/28/20 06/29/20 06/29/20 Range/Units 21:40 00:15 03:15 WBC (4.0-10.5) K/mm3 RBC (4.1-5.4) M/mm3 Hgb (12.0-16.0) gm/dl Hct (35-47) % MCV (78-100) fl MCH (26-32) pg MCHC (32-36) g/dl RDW (11.5-14.0) % Plt Count (150-450) K/mm3 MPV (7.5-11.0) fl Gran % (36.0-66.0) % Eos # (Auto) (0-0.5) Absolute Lymphs (auto) (1.0-4.6) Absolute Monos (auto) (0.0-1.3) Lymphocytes % (24.0-44.0) % Monocytes % (0.0-12.0) % Eosinophils % (0.00-5.0) % Basophils % (0.0-0.4) % Absolute Granulocytes (1.4-6.9) Basophils # (0-0.4) PT (9.95-12.35) SECONDS INR (0.8-3.0) D-Dimer (215-500) ng/mL Sodium (137-145) mmol/L Potassium (3.5-5.1) mmol/L Chloride (98-107) mmol/L Carbon Dioxide (22-30) mmol/L Anion Gap (5-15) MEQ/L BUN (7-17) mg/dL Creatinine (0.52-1.04) mg/dL Estimated GFR ML/MIN Glucose (74-106) mg/dL Calcium (8.4-10.2) mg/dL Total Bilirubin (0.2-1.3) mg/dL AST (14-36) U/L ALT (0-35) U/L Alkaline Phosphatase (38-126) U/L Troponin I < 0.012 < 0.012 < 0.012 (0.000-0.034) ng/mL NT-Pro-B Natriuret Pep (0-900) pg/mL Serum Total Protein (6.3-8.2) g/dL Albumin (3.5-5.0) g/dL Triglycerides (30-150) mg/dL Cholesterol (50-200) mg/dL LDL Cholesterol (30-100) mg/dL HDL Cholesterol (40-60) mg/dL Heart Disease Risk Ratio Influenza Type A Ag (NEGATIVE) Influenza Type B Ag (NEGATIVE) RSV (PCR) (Negative) SARS-CoV-2 (PCR) (NEGATIVE) 06/29/20 Range/Units 03:15 WBC (4.0-10.5) K/mm3 RBC (4.1-5.4) M/mm3 Hgb (12.0-16.0) gm/dl Hct (35-47) % MCV (78-100) fl MCH (26-32) pg MCHC (32-36) g/dl RDW (11.5-14.0) % Plt Count (150-450) K/mm3 MPV (7.5-11.0) fl Gran % (36.0-66.0) % Eos # (Auto) (0-0.5) Absolute Lymphs (auto) (1.0-4.6) Absolute Monos (auto) (0.0-1.3) Lymphocytes % (24.0-44.0) % Monocytes % (0.0-12.0) % Eosinophils % (0.00-5.0) % Basophils % (0.0-0.4) % Absolute Granulocytes (1.4-6.9) Basophils # (0-0.4) PT (9.95-12.35) SECONDS INR (0.8-3.0) D-Dimer (215-500) ng/mL Sodium (137-145) mmol/L Potassium (3.5-5.1) mmol/L Chloride (98-107) mmol/L Carbon Dioxide (22-30) mmol/L Anion Gap (5-15) MEQ/L BUN (7-17) mg/dL Creatinine (0.52-1.04) mg/dL Estimated GFR ML/MIN Glucose (74-106) mg/dL Calcium (8.4-10.2) mg/dL Total Bilirubin (0.2-1.3) mg/dL AST (14-36) U/L ALT (0-35) U/L Alkaline Phosphatase (38-126) U/L Troponin I (0.000-0.034) ng/mL NT-Pro-B Natriuret Pep (0-900) pg/mL Serum Total Protein (6.3-8.2) g/dL Albumin (3.5-5.0) g/dL Triglycerides 149 (30-150) mg/dL Cholesterol 141 (50-200) mg/dL LDL Cholesterol 91 (30-100) mg/dL HDL Cholesterol 31 L (40-60) mg/dL Heart Disease Risk Ratio 4.6 Influenza Type A Ag (NEGATIVE) Influenza Type B Ag (NEGATIVE) RSV (PCR) (Negative) SARS-CoV-2 (PCR) (NEGATIVE) - Radiology Impressions Radiology Exams & Impressions: Radiology Procedures Category Date Time Status CHEST 2 VIEWS (PA AND LAT) Stat Exams 06/28/20 15:08 Completed CHEST WITH CONTRAST [CT] Stat Exams 06/28/20 16:10 Completed - Other Procedures and Tests Respiratory Therapy 06/30/20 05:00 EKG ROUTINE 07/01/20 05:00 EKG ROUTINE Assessment/Plan (1) Syncope Current Visit: Yes Status: Acute Assessment & Plan: get echo, [place] ruled out. due to urinary incontinence will get eeg to r/o seizure pathology. consult cardiology teleconference, will dispo pending cardiology consult. Code(s): R55 - SYNCOPE AND COLLAPSE
[2020-06-29] MEDS: Zestril 20 MG PO SCH (09:28)
[2020-06-29] MEDS: Lopressor 50 MG PO SCH (09:28)
[2020-06-29] MEDS ORDERED: Zestril 20 MG PO SCH (10:45)
[2020-06-29] MEDS ORDERED: Adalat CC 30 MG TABLET PO SCH (10:45)
[2020-06-29] MEDS ORDERED: LASIX 20 MG PO SCH (10:45)
[2020-06-29] MEDS ORDERED: ECOTRIN 81 MG PO SCH (11:00)
--- NOTE | 2020-06-29 15:57 | PCM.SSS ---
History of Present Illness - Chief Complaint Chief Complaint: syncope History of Present Illness: is a 65 year old female patient of Dr Humphreys, admitted after a syncopal episode at home witness by her , was incontinent of urine during the episode but no reported seizure. she had an abnormal EEG, MRI/MRA pending at time of discharge. she does her 's home hemodialysis and insists she must go home to do it today. she understands the risk of further episodes with p ending tests, was seen by her labor relations supervisor Dr Akhtar who agreed to let her go home with an event monitor and she will f/u with him on Thursday. - Review of Systems Constitutional: No Fever, No Chills Respiratory: No Cough, No Short Of Breath Cardiac: Syncope Abdominal/Gastrointestinal: No Abdominal Pain, No Nausea, No Vomiting, No Diarrhea Genitourinary Symptoms: No Dysuria Skin: No Rash Medications & Allergies Home Medications: Home Medication List Atorvastatin Calcium [Lipitor] 80 mg PO DAILY 05/07/18 [History Confirmed 06/28/20] Furosemide 20 mg [Lasix 20 mg] 20 mg PO DAILY 05/07/18 [History Confirmed 06/28/20] Lisinopril 20 mg [Zestril 20 MG] 20 mg PO BID 05/07/18 [History Confirmed 06/28/20] Alendronate Sodium 70 mg [Fosamax 70 MG] 70 mg PO WEEKLY 03/08/19 [History Confirmed 06/28/20] Aspirin EC 325 mg [Ecotrin 325 MG] 81 mg PO DAILY 03/08/19 [History Con firmed 06/28/20] Nifedipine [Nifedipine ER] 30 mg PO BID 03/08/19 [History Confirmed 06/28/20] Melatonin 10 mg PO HS 06/28/20 [History Confirmed 06/28/20] Metoprolol Tartrate 25 mg [Lopressor 25MG Tab] 12.5 mg PO BID #15 tab 06/29/20 [Rx] Allergies/Adverse Reactions: Allergies Allergy/AdvReac Type Severity Reaction Status Date / Time amoxicillin trihydrate AdvReac Severe Vomiting Verified 06/28/20 15:10 [From Augmentin] potassium clavulanate AdvReac Severe Vomiting Verified 06/28/20 15:10 [From Augmentin] - Past Medical History Past Medical History: Yes Neurological History: No Pertinent History ENT History: No Pertinent History Cardiac History: Coronary Artery Disease, High Cholesterol, Hypertension, Myocardial Infarction ([place]) Respiratory History: No Pertinent History Endocrine Medical History: No Pertinent History Musculoskelatal History: Arthritis, Fibromyalgia GI Medical History: No Pertinent History History: No Pertinent History Pyscho-Social History: Depression Reproductive Disorders: No Pertinent History Comment: 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 - Female History Are you now?: No - Past Surgical History Past Surgical History: Yes Neuro Surgical History: No Pertinent History Cardiac History: CABG, Cardiac Catheterization, Cardiac Stent Respiratory Surgery: No Pertinent History GI Surgical History: Appendectomy Genitourinary Surgical Hx: No Pertinent History Musculskeletal Surgical Hx: No Pertinent History Female Surgical History: Hysterectomy, Tubal Ligation Other Surgical History: 4 TOTAL STENTS 2016 - Social History Smoking Status: Current some day smoker How long have you smoked: 50 yrs Exposure to second hand smoke: Yes Alcohol: None Drug Use: none - Physical Exam Vital Signs: Vital Signs - 24 hr Temp Pulse Resp BP Pulse Ox 06/29/20 12:00 97.6 F 59 L 18 132/69 95 06/29/20 11:46 18 06/29/20 07:53 97.7 F 58 L 18 132/63 96 06/29/20 07:33 16 06/29/20 07:21 93 L 06/29/20 04:00 98.3 F 63 18 125/61 96 06/29/20 00:00 18 06/28/20 23:51 96 06/28/20 23:35 98.7 F 62 18 113/57 95 06/28/20 20:26 97.7 F 71 18 110/75 98 06/28/20 19:56 98 06/28/20 19:00 62 20 117/60 96 06/28/20 18:05 62 18 132/67 96 06/28/20 17:32 96 06/28/20 16:30 94/53 General Appearance: no apparent distress, alert Neurologic Exam: alert, oriented x 3, cooperative Respiratory Exam: normal breath sounds, lungs clear, No respiratory distress Cardiovascular Exam: regular rate/rhythm, normal heart sounds, normal peripheral pulses Gastrointestinal/Abdomen Exam: soft, normal bowel sounds, No tenderness, No mass Results - Labs Lab/Micro Results: Lab Results-Last 24 Hours 06/28/20 06/28/20 06/28/20 Range/Units 13:30 13:30 13:30 WBC 10.1 (4.0-10.5) K/mm3 RBC 4.50 (4.1-5.4) M/mm3 Hgb 13.9 (12.0-16.0) gm/dl Hct 43.7 (35-47) % MCV 97.1 (78-100) fl MCH 30.9 (26-32) pg MCHC 31.8 L (32-36) g/dl RDW 13.6 (11.5-14.0) % Plt Count 298 (150-450) K/mm3 MPV 9.6 (7.5-11.0) fl Gran % 71.1 H (36.0-66.0) % Eos # (Auto) 0.24 (0-0.5) Absolute Lymphs (auto) 2.04 (1.0-4.6) Absolute Monos (auto) 0.61 (0.0-1.3) Lymphocytes % 20.2 L (24.0-44.0) % Monocytes % 6.0 (0.0-12.0) % Eosinophils % 2.4 (0.00-5.0) % Basophils % 0.3 (0.0-0.4) % Absolute Granulocytes 7.19 H (1.4-6.9) Basophils # 0.03 (0-0.4) PT 13.3 H (9.95-12.35) SECONDS INR 1.18 (0.8-3.0) D-Dimer 750 H* (215-500) ng/mL Sodium 140 (137-145) mmol/L Potassium 4.8 (3.5-5.1) mmol/L Chloride 104 (98-107) mmol/L Carbon Dioxide 28 (22-30) mmol/L Anion Gap 13.2 (5-15) MEQ/L BUN 16 (7-17) mg/dL Creatinine 1.18 H (0.52-1.04) mg/dL Estimated GFR 48.9 ML/MIN Glucose 127 H (74-106) mg/dL Calcium 10.2 (8.4-10.2) mg/dL Total Bilirubin 0.50 (0.2-1.3) mg/dL AST 22 (14-36) U/L ALT 20 (0-35) U/L Alkaline Phosphatase 89 (38-126) U/L Troponin I (0.000-0.034) ng/mL NT-Pro-B Natriuret Pep 342 (0-900) pg/mL Serum Total Protein 7.1 (6.3-8.2) g/dL Albumin 4.5 (3.5-5.0) g/dL Triglycerides (30-150) mg/dL Cholesterol (50-200) mg/dL LDL Cholesterol (30-100) mg/dL HDL Cholesterol (40-60) mg/dL Heart Disease Risk Ratio Influenza Type A Ag (NEGATIVE) Influenza Type B Ag (NEGATIVE) RSV (PCR) (Negative) SARS-CoV-2 (PCR) (NEGATIVE) 06/28/20 06/28/20 06/28/20 Range/Units 13:30 17:36 18:05 WBC (4.0-10.5) K/mm3 RBC (4.1-5.4) M/mm3 Hgb (12.0-16.0) gm/dl Hct (35-47) % MCV (78-100) fl MCH (26-32) pg MCHC (32-36) g/dl RDW (11.5-14.0) % Plt Count (150-450) K/mm3 MPV (7.5-11.0) fl Gran % (36.0-66.0) % Eos # (Auto) (0-0.5) Absolute Lymphs (auto) (1.0-4.6) Absolute Monos (auto) (0.0-1.3) Lymphocytes % (24.0-44.0) % Monocytes % (0.0-12.0) % Eosinophils % (0.00-5.0) % Basophils % (0.0-0.4) % Absolute Granulocytes (1.4-6.9) Basophils # (0-0.4) PT (9.95-12.35) SECONDS INR (0.8-3.0) D-Dimer (215-500) ng/mL Sodium (137-145) mmol/L Potassium (3.5-5.1) mmol/L Chloride (98-107) mmol/L Carbon Dioxide (22-30) mmol/L Anion Gap (5-15) MEQ/L BUN (7-17) mg/dL Creatinine (0.52-1.04) mg/dL Estimated GFR ML/MIN Glucose (74-106) mg/dL Calcium (8.4-10.2) mg/dL Total Bilirubin (0.2-1.3) mg/dL AST (14-36) U/L ALT (0-35) U/L Alkaline Phosphatase (38-126) U/L Troponin I < 0.012 < 0.012 (0.000-0.034) ng/mL NT-Pro-B Natriuret Pep (0-900) pg/mL Serum Total Protein (6.3-8.2) g/dL Albumin (3.5-5.0) g/dL Triglycerides (30-150) mg/dL Cholesterol (50-200) mg/dL LDL Cholesterol (30-100) mg/dL HDL Cholesterol (40-60) mg/dL Heart Disease Risk Ratio Influenza Type A Ag NEGATIVE (NEGATIVE) Influenza Type B Ag NEGATIVE (NEGATIVE) RSV (PCR) NEGATIVE (Negative) SARS-CoV-2 (PCR) NEGATIVE (NEGATIVE) 06/28/20 06/29/20 06/29/20 Range/Units 21:40 00:15 03:15 WBC (4.0-10.5) K/mm3 RBC (4.1-5.4) M/mm3 Hgb (12.0-16.0) gm/dl Hct (35-47) % MCV (78-100) fl MCH (26-32) pg MCHC (32-36) g/dl RDW (11.5-14.0) % Plt Count (150-450) K/mm3 MPV (7.5-11.0) fl Gran % (36.0-66.0) % Eos # (Auto) (0-0.5) Absolute Lymphs (auto) (1.0-4.6) Absolute Monos (auto) (0.0-1.3) Lymphocytes % (24.0-44.0) % Monocytes % (0.0-12.0) % Eosinophils % (0.00-5.0) % Basophils % (0.0-0.4) % Absolute Granulocytes (1.4-6.9) Basophils # (0-0.4) PT (9.95-12.35) SECONDS INR (0.8-3.0) D-Dimer (215-500) ng/mL Sodium (137-145) mmol/L Potassium (3.5-5.1) mmol/L Chloride (98-107) mmol/L Carbon Dioxide (22-30) mmol/L Anion Gap (5-15) MEQ/L BUN (7-17) mg/dL Creatinine (0.52-1.04) mg/dL Estimated GFR ML/MIN Glucose (74-106) mg/dL Calcium (8.4-10.2) mg/dL Total Bilirubin (0.2-1.3) mg/dL AST (14-36) U/L ALT (0-35) U/L Alkaline Phosphatase (38-126) U/L Troponin I < 0.012 < 0.012 < 0.012 (0.000-0.034) ng/mL NT-Pro-B Natriuret Pep (0-900) pg/mL Serum Total Protein (6.3-8.2) g/dL Albumin (3.5-5.0) g/dL Triglycerides (30-150) mg/dL Cholesterol (50-200) mg/dL LDL Cholesterol (30-100) mg/dL HDL Cholesterol (40-60) mg/dL Heart Disease Risk Ratio Influenza Type A Ag (NEGATIVE) Influenza Type B Ag (NEGATIVE) RSV (PCR) (Negative) SARS-CoV-2 (PCR) (NEGATIVE) 06/29/20 Range/Units 03:15 WBC (4.0-10.5) K/mm3 RBC (4.1-5.4) M/mm3 Hgb (12.0-16.0) gm/dl Hct (35-47) % MCV (78-100) fl MCH (26-32) pg MCHC (32-36) g/dl RDW (11.5-14.0) % Plt Count (150-450) K/mm3 MPV (7.5-11.0) fl Gran % (36.0-66.0) % Eos # (Auto) (0-0.5) Absolute Lymphs (auto) (1.0-4.6) Absolute Monos (auto) (0.0-1.3) Lymphocytes % (24.0-44.0) % Monocytes % (0.0-12.0) % Eosinophils % (0.00-5.0) % Basophils % (0.0-0.4) % Absolute Granulocytes (1.4-6.9) Basophils # (0-0.4) PT (9.95-12.35) SECONDS INR (0.8-3.0) D-Dimer (215-500) ng/mL Sodium (137-145) mmol/L Potassium (3.5-5.1) mmol/L Chloride (98-107) mmol/L Carbon Dioxide (22-30) mmol/L Anion Gap (5-15) MEQ/L BUN (7-17) mg/dL Creatinine (0.52-1.04) mg/dL Estimated GFR ML/MIN Glucose (74-106) mg/dL Calcium (8.4-10.2) mg/dL Total Bilirubin (0.2-1.3) mg/dL AST (14-36) U/L ALT (0-35) U/L Alkaline Phosphatase (38-126) U/L Troponin I (0.000-0.034) ng/mL NT-Pro-B Natriuret Pep (0-900) pg/mL Serum Total Protein (6.3-8.2) g/dL Albumin (3.5-5.0) g/dL Triglycerides 149 (30-150) mg/dL Cholesterol 141 (50-200) mg/dL LDL Cholesterol 91 (30-100) mg/dL HDL Cholesterol 31 L (40-60) mg/dL Heart Disease Risk Ratio 4.6 Influenza Type A Ag (NEGATIVE) Influenza Type B Ag (NEGATIVE) RSV (PCR) (Negative) SARS-CoV-2 (PCR) (NEGATIVE) - Radiology Impressions Radiology Exams & Impressions: Radiology Procedures Category Date Time Status CAROTID BILATERAL [US] Routine Exams 06/29/20 Ordered CHEST 2 VIEWS (PA AND LAT) Stat Exams 06/28/20 15:08 Completed CHEST WITH CONTRAST [CT] Stat Exams 06/28/20 16:10 Completed ECHO W/2D AND DOPPLER [US] Routine Exams 06/29/20 10:14 Taken MRA NECK WITHOUT CONTRAST [MRI] Routine Exams 06/29/20 14:54 Taken MRI BRAIN W/O CONTRAST [MRI] Routine Exams 06/29/20 13:21 Taken - Other Procedures and Tests Respiratory Therapy 06/30/20 05:00 EKG ROUTINE 07/01/20 05:00 EKG ROUTINE Assessment/Plan (1) Syncope Current Visit: Yes Status: Acute Assessment & Plan: echo pending, home on event monitor per Dr Akhtar and will f/u with him on Thursday. Code(s): R55 - SYNCOPE AND COLLAPSE (2) Abnormal EEG Current Visit: Yes Status: Acute Assessment & Plan: MRI brain and MRA are pending at disharge, may require neurology referral depending on results Code(s): R94.01 - ABNORMAL ELECTROENCEPHALOGRAM [EEG] Hospital Summary - Vitals & Intake/Output Vital Signs: Vital Signs Temperature 97.6 F 06/29/20 12:00 Pulse Rate 59 L 06/29/20 12:00 Respiratory Rate 18 06/29/20 12:00 Blood Pressure 132/69 06/29/20 12:00 O2 Sat by Pulse Oximetry 95 06/29/20 12:00 Intake & Output: Intake & Output 06/27/20 06/28/20 06/29/20 06/30/20 11:59 11:59 11:59 11:59 Intake Total 780 240 Output Total 1200 Balance -420 240 Weight 91.8 kg - Lab Result Diagrams: 06/28/20 13:30 06/28/20 13:30 Lab Results-Last 24 Hrs: Lab Results-Last 24 Hours 06/28/20 06/28/20 06/28/20 Range/Units 13:30 13:30 13:30 WBC 10.1 (4.0-10.5) K/mm3 RBC 4.50 (4.1-5.4) M/mm3 Hgb 13.9 (12.0-16.0) gm/dl Hct 43.7 (35-47) % MCV 97.1 (78-100) fl MCH 30.9 (26-32) pg MCHC 31.8 L (32-36) g/dl RDW 13.6 (11.5-14.0) % Plt Count 298 (150-450) K/mm3 MPV 9.6 (7.5-11.0) fl Gran % 71.1 H (36.0-66.0) % Eos # (Auto) 0.24 (0-0.5) Absolute Lymphs (auto) 2.04 (1.0-4.6) Absolute Monos (auto) 0.61 (0.0-1.3) Lymphocytes % 20.2 L (24.0-44.0) % Monocytes % 6.0 (0.0-12.0) % Eosinophils % 2.4 (0.00-5.0) % Basophils % 0.3 (0.0-0.4) % Absolute Granulocytes 7.19 H (1.4-6.9) Basophils # 0.03 (0-0.4) PT 13.3 H (9.95-12.35) SECONDS INR 1.18 (0.8-3.0) D-Dimer 750 H* (215-500) ng/mL Sodium 140 (137-145) mmol/L Potassium 4.8 (3.5-5.1) mmol/L Chloride 104 (98-107) mmol/L Carbon Dioxide 28 (22-30) mmol/L Anion Gap 13.2 (5-15) MEQ/L BUN 16 (7-17) mg/dL Creatinine 1.18 H (0.52-1.04) mg/dL Estimated GFR 48.9 ML/MIN Glucose 127 H (74-106) mg/dL Calcium 10.2 (8.4-10.2) mg/dL Total Bilirubin 0.50 (0.2-1.3) mg/dL AST 22 (14-36) U/L ALT 20 (0-35) U/L Alkaline Phosphatase 89 (38-126) U/L Troponin I (0.000-0.034) ng/mL NT-Pro-B Natriuret Pep 342 (0-900) pg/mL Serum Total Protein 7.1 (6.3-8.2) g/dL Albumin 4.5 (3.5-5.0) g/dL Triglycerides (30-150) mg/dL Cholesterol (50-200) mg/dL LDL Cholesterol (30-100) mg/dL HDL Cholesterol (40-60) mg/dL Heart Disease Risk Ratio Influenza Type A Ag (NEGATIVE) Influenza Type B Ag (NEGATIVE) RSV (PCR) (Negative) SARS-CoV-2 (PCR) (NEGATIVE) 06/28/20 06/28/20 06/28/20 Range/Units 13:30 17:36 18:05 WBC (4.0-10.5) K/mm3 RBC (4.1-5.4) M/mm3 Hgb (12.0-16.0) gm/dl Hct (35-47) % MCV (78-100) fl MCH (26-32) pg MCHC (32-36) g/dl RDW (11.5-14.0) % Plt Count (150-450) K/mm3 MPV (7.5-11.0) fl Gran % (36.0-66.0) % Eos # (Auto) (0-0.5) Absolute Lymphs (auto) (1.0-4.6) Absolute Monos (auto) (0.0-1.3) Lymphocytes % (24.0-44.0) % Monocytes % (0.0-12.0) % Eosinophils % (0.00-5.0) % Basophils % (0.0-0.4) % Absolute Granulocytes (1.4-6.9) Basophils # (0-0.4) PT (9.95-12.35) SECONDS INR (0.8-3.0) D-Dimer (215-500) ng/mL Sodium (137-145) mmol/L Potassium (3.5-5.1) mmol/L Chloride (98-107) mmol/L Carbon Dioxide (22-30) mmol/L Anion Gap (5-15) MEQ/L BUN (7-17) mg/dL Creatinine (0.52-1.04) mg/dL Estimated GFR ML/MIN Glucose (74-106) mg/dL Calcium (8.4-10.2) mg/dL Total Bilirubin (0.2-1.3) mg/dL AST (14-36) U/L ALT (0-35) U/L Alkaline Phosphatase (38-126) U/L Troponin I < 0.012 < 0.012 (0.000-0.034) ng/mL NT-Pro-B Natriuret Pep (0-900) pg/mL Serum Total Protein (6.3-8.2) g/dL Albumin (3.5-5.0) g/dL Triglycerides (30-150) mg/dL Cholesterol (50-200) mg/dL LDL Cholesterol (30-100) mg/dL HDL Cholesterol (40-60) mg/dL Heart Disease Risk Ratio Influenza Type A Ag NEGATIVE (NEGATIVE) Influenza Type B Ag NEGATIVE (NEGATIVE) RSV (PCR) NEGATIVE (Negative) SARS-CoV-2 (PCR) NEGATIVE (NEGATIVE) 06/28/20 06/29/20 06/29/20 Range/Units 21:40 00:15 03:15 WBC (4.0-10.5) K/mm3 RBC (4.1-5.4) M/mm3 Hgb (12.0-16.0) gm/dl Hct (35-47) % MCV (78-100) fl MCH (26-32) pg MCHC (32-36) g/dl RDW (11.5-14.0) % Plt Count (150-450) K/mm3 MPV (7.5-11.0) fl Gran % (36.0-66.0) % Eos # (Auto) (0-0.5) Absolute Lymphs (auto) (1.0-4.6) Absolute Monos (auto) (0.0-1.3) Lymphocytes % (24.0-44.0) % Monocytes % (0.0-12.0) % Eosinophils % (0.00-5.0) % Basophils % (0.0-0.4) % Absolute Granulocytes (1.4-6.9) Basophils # (0-0.4) PT (9.95-12.35) SECONDS INR (0.8-3.0) D-Dimer (215-500) ng/mL Sodium (137-145) mmol/L Potassium (3.5-5.1) mmol/L Chloride (98-107) mmol/L Carbon Dioxide (22-30) mmol/L Anion Gap (5-15) MEQ/L BUN (7-17) mg/dL Creatinine (0.52-1.04) mg/dL Estimated GFR ML/MIN Glucose (74-106) mg/dL Calcium (8.4-10.2) mg/dL Total Bilirubin (0.2-1.3) mg/dL AST (14-36) U/L ALT (0-35) U/L Alkaline Phosphatase (38-126) U/L Troponin I < 0.012 < 0.012 < 0.012 (0.000-0.034) ng/mL NT-Pro-B Natriuret Pep (0-900) pg/mL Serum Total Protein (6.3-8.2) g/dL Albumin (3.5-5.0) g/dL Triglycerides (30-150) mg/dL Cholesterol (50-200) mg/dL LDL Cholesterol (30-100) mg/dL HDL Cholesterol (40-60) mg/dL Heart Disease Risk Ratio Influenza Type A Ag (NEGATIVE) Influenza Type B Ag (NEGATIVE) RSV (PCR) (Negative) SARS-CoV-2 (PCR) (NEGATIVE) 06/29/20 Range/Units 03:15 WBC (4.0-10.5) K/mm3 RBC (4.1-5.4) M/mm3 Hgb (12.0-16.0) gm/dl Hct (35-47) % MCV (78-100) fl MCH (26-32) pg MCHC (32-36) g/dl RDW (11.5-14.0) % Plt Count (150-450) K/mm3 MPV (7.5-11.0) fl Gran % (36.0-66.0) % Eos # (Auto) (0-0.5) Absolute Lymphs (auto) (1.0-4.6) Absolute Monos (auto) (0.0-1.3) Lymphocytes % (24.0-44.0) % Monocytes % (0.0-12.0) % Eosinophils % (0.00-5.0) % Basophils % (0.0-0.4) % Absolute Granulocytes (1.4-6.9) Basophils # (0-0.4) PT (9.95-12.35) SECONDS INR (0.8-3.0) D-Dimer (215-500) ng/mL Sodium (137-145) mmol/L Potassium (3.5-5.1) mmol/L Chloride (98-107) mmol/L Carbon Dioxide (22-30) mmol/L Anion Gap (5-15) MEQ/L BUN (7-17) mg/dL Creatinine (0.52-1.04) mg/dL Estimated GFR ML/MIN Glucose (74-106) mg/dL Calcium (8.4-10.2) mg/dL Total Bilirubin (0.2-1.3) mg/dL AST (14-36) U/L ALT (0-35) U/L Alkaline Phosphatase (38-126) U/L Troponin I (0.000-0.034) ng/mL NT-Pro-B Natriuret Pep (0-900) pg/mL Serum Total Protein (6.3-8.2) g/dL Albumin (3.5-5.0) g/dL Triglycerides 149 (30-150) mg/dL Cholesterol 141 (50-200) mg/dL LDL Cholesterol 91 (30-100) mg/dL HDL Cholesterol 31 L (40-60) mg/dL Heart Disease Risk Ratio 4.6 Influenza Type A Ag (NEGATIVE) Influenza Type B Ag (NEGATIVE) RSV (PCR) (Negative) SARS-CoV-2 (PCR) (NEGATIVE) - Radiology Exams Ordered Rad Exams-Entire Visit: Radiology Procedures Category Date Time Status CAROTID BILATERAL [US] Routine Exams 06/29/20 Ordered CHEST 2 VIEWS (PA AND LAT) Stat Exams 06/28/20 15:08 Completed CHEST WITH CONTRAST [CT] Stat Exams 06/28/20 16:10 Completed ECHO W/2D AND DOPPLER [US] Routine Exams 06/29/20 10:14 Taken MRA NECK WITHOUT CONTRAST [MRI] Routine Exams 06/29/20 14:54 Taken MRI BRAIN W/O CONTRAST [MRI] Routine Exams 06/29/20 13:21 Taken - Procedures and Test Procedures and Tests throughout Hospitalization: Therapy Orders & Screens 06/28/20 21:15 Smoking Cessation Education ONCE Comment: Diagnosis: syncope Smoking Status: Current some day smoker How long have you smoked: 50 yrs Have you smoked in the past 12 months: Yes Approximately how many cigarettes per day: 1 pack Do you dip or chew tobacco: No 06/28/20 23:45 EKG ROUTINE Comment: Diagnosis: syncope 06/29/20 05:00 EKG ROUTINE Comment: Diagnosis: syncope 06/29/20 08:39 EEG 41-60 Minutes (Normal) ONCE Comment: Reason For Exam: Diagnosis: syncope 06/30/20 05:00 EKG ROUTINE Comment: Diagnosis: syncope 07/01/20 05:00 EKG ROUTINE Comment: Diagnosis: syncope - Discharge Disposition: Home, Self-Care Condition: Stable Prescriptions: New Metoprolol Tartrate 25 mg [Lopressor 25MG Tab] 12.5 mg PO BID #15 tab Continue Furosemide 20 mg [Lasix 20 mg] 20 mg PO DAILY Atorvastatin Calcium [Lipitor] 80 mg PO DAILY Lisinopril 20 mg [Zestril 20 MG] 20 mg PO BID Nifedipine [Nifedipine ER] 30 mg PO BID Alendronate Sodium 70 mg [Fosamax 70 MG] 70 mg PO WEEKLY Aspirin EC 325 mg [Ecotrin 325 MG] 81 mg PO DAILY Melatonin 10 mg PO HS Discontinued Metoprolol Tartrate 50 mg PO BID Outpatient Orders: CAROTID BILATERAL Facility: [facility], Location: RADIOLOGY Holter Monitor Facility: [facility], Location: RESPIRATORY THERAPY Instructions: Syncope (Fainting), Arrhythmias, High Blood Pressure (DC), Low Blood Pressure Follow up with: SREEDHAR HUMPHREYS [Primary Care Provider] - 07/06/20 9:30 am JOSE RAMON AKHTAR [COURTESY STAFF] - 07/02/20 2:00 pm Forms: Discharge Instructions
[2020-06-29 16:33] VITALS: PULSE 58
[2020-06-29 16:34] VITALS: BP 138/71; O2SAT 98
--- NOTE | 2020-06-29 16:35 | XRAY ---
Indication: Syncopal episode 1 day earlier. Abnormal EEG. Sagittal, coronal, and axial MRI brain was performed without contrast using T1, T2, FLAIR, diffusion, and ADC sequences. Comparison: None Age-appropriate global atrophy and moderate periventricular degenerative micro-ischemia signal bilaterally. Brainstem demonstrates similar minimal degenerative micro-ischemia signal. No acute intracranial hemorrhage, abnormal extra-axial fluid collection, or mass effect. Diffusion images are negative for restricted signal. Fourth ventricle is midline without hydrocephalus. 7/8 cranial nerve complex bilateral symmetric. Normal flow void signal within the major intracerebral circulation. Normal appearing craniocervical junction and sella turcica. Paranasal sinuses are clear. Impression: 1. Atrophy and degenerative micro-ischemia within normal limits for patient's age. 2. Remaining MRI brain without contrast exam is negative.
--- NOTE | 2020-06-29 16:39 | XRAY ---
Indication: Syncopal episode 1 day earlier. Abnormal EEG. Multi-slab 3-D [id number] MRA neck was performed. Comparison: None Visualized common carotid, carotid bulb, internal carotid, and external carotid arteries are negative for critical stenosis or obstruction. Vertebral arteries are bilaterally symmetric without critical stenosis, obstruction, or AV malformation. Impression: Negative MRA neck without contrast exam. Of note, MRA neck without contrast exam is typically of low resolution. CT or MRA with contrast exam may yield further information if there remains clinical concern.
--- NOTE | 2020-06-29 17:07 | XRAY ---
Indication: Syncope. Two-dimensional sonogram and color Doppler imaging of the carotid arteries of the neck performed. Comparison: None Examination of the right carotid circulation demonstrates minimal scattered soft and calcified plaquing in the common carotid artery. Mild/moderate calcified plaquing seen at the level of the bulb extending into the origin of the internal carotid artery. Remaining internal carotid artery is tortuous. External carotid artery widely patent. PSV of the CCA is 79 cm/s. PSV of the ICA is 90 cm/s. ICA/CCA ratio is 1.1. Normal antegrade vertebral artery flow. Examination of the left carotid circulation demonstrates widely patent common carotid artery. At the level above, there is mild calcified plaquing extending into the origin of the internal carotid artery. External carotid artery demonstrates minimal eccentric plaquing. PSV of the CCA is 80 cm/s. PSV of the ICA is 117 cm/s. ICA/CCA ratio is 1.5. Normal antegrade vertebral artery flow. Impression: Mild/moderate scattered arteriosclerotic plaquing right greater than left as detailed. Velocity measurements and ratios are negative for hemodynamically significant flow limiting stenosis. CTA or MRA neck with contrast exam may yield further information if there remains clinical concern.
[2020-06-29] MEDS ORDERED: LIPITOR 40MG PO SCH (22:00)
[2020-06-30] MEDS ORDERED: NON-FORMULARY ITEM (Atorvastatin Calcium [Lipitor] 80 MG) PO SCH (10:00)
[2020-06-30] MEDS ORDERED: Ecotrin 325 MG PO SCH (10:00)
[2020-06-30] MEDS ORDERED: Lopressor 25MG Tab PO SCH (10:00)
--- NOTE | 2020-07-02 09:32 | CONS ---
NOTE: This report was dictated and transcribed at [facility] in [place]. DATE OF CONSULTATION: 06/29/2020 CHIEF COMPLAINT: This is a 65-year-old white female with a prior known history significant for coronary artery disease and coronary artery bypass surgery, who was taken to [facility] Emergency Room due to an episode when she passed out for about 1-2 minutes, according to the . The patient was sitting on a couch, watching TV. She got cramping in the left leg, and she subsequently decided to go down on the floor and stretch her left leg. Subsequently, she was noted to have passed out and became degroot color, according to the who was there. The patient's skin was sticky. This lasted a couple of minutes, according to the , and patient was noted to be gasping. She had urinary incontinence. took the blood pressure and, according to him, it was 73/53. Pulse was 125. The patient subsequently came to and was taken to [facility] Emergency Room, where she was admitted. This report was dictated online after tele cardio conference, which was done by me today. PAST MEDICAL HISTORY This is consistent with coronary artery disease with coronary artery bypass surgery, history of hypertension, hyperlipidemia, and history of carotid artery disease. SOCIAL HISTORY Patient currently does not smoke. There is no history of alcohol or drug abuse. MEDICATIONS Include following: The patient is on atorvastatin 80 mg daily, Lasix 20 mg daily, lisinopril 20 mg b.i.d., alendronate 70 mg every week, aspirin 325 mg daily, metoprolol 50 mg b.i.d., nifedipine 30 mg b.i.d., melatonin 10 mg at night. DRUG ALLERGIES She is allergic to amoxicillin and potassium clavulanate or Augmentin. VITAL SIGNS Stable. Blood pressure was recorded to be 132/69, pulse 58, respirations normal, temperature 97.6. PHYSICAL EXAM VITAL SIGNS: Stable. Blood pressure was recorded to be 132/69, pulse 58, respirations normal, temperature 97.6. HEART: According to the nurse, her heart sounds were regular. LUNGS: Breath sounds are diminished, but the lungs are clear. EXTREMITIES: Demonstrates no leg edema. This exam was limited because this is a tele cardio conference call and some of the exam findings were obtained by talking to the nurse taking care of the patient. Nurse's name is Randi. The patient's lab workup demonstrated a normal troponin I. CT scan of the chest demonstrated no evidence of pulmonary embolism. Electrocardiogram demonstrated presence of normal sinus rhythm with sinus bradycardia, heart rate 53 with evidence of complete right bundle branch block pattern with a first-degree AV block. There were no other acute ST or T-segment changes. There were changes to indicate possible old inferior wall myocardial infarction. The patient has laboratory workup which demonstrates the following: White count was 10.1; hemoglobin 13.9; hematocrit 43.7; platelets 298,000. Her electrolytes: Sodium 140, potassium 4.8, chloride 104, BUN is 16, creatinine 1.18. CT scan of the chest demonstrates negative for pulmonary embolism. There is a tiny calcified pulmonary granuloma, and there is a small hiatal hernia. There is a fatty liver and right renal cyst. IMPRESSION 1. Syncope of undetermined etiology, rule out cardiac arrhythmias. 2. Coronary artery disease, status post coronary artery bypass. 3. History of hypertension. 4. History of hyperlipidemia. TREATMENT PLAN Patient will be recommended decreasing dose of the metoprolol to 12.5 mg twice a day due to observed sinus bradycardia. Also will be recommended to have an echocardiogram as well as MRA of the carotids and MRI of the brain. Carotid duplex scan also will be advised. The patient will be seen in the office in the next couple of days. An outpatient event monitor also will be advised. Further recommendation will then be given.
== END 2020-06-29 17:07 | disposition home or self-care (01) ==
LOC: ED 14:55 → MED SURG 19:54
PROVIDERS: ADMIT Family Medicine; ATTEND Family Medicine
DX: R55 Syncope and collapse (principal); Z79.899 Other long term (current) drug therapy; I10 Essential (primary) hypertension; E78.00 Pure hypercholesterolemia, unspecified; Z86.79 Personal history of other diseases of the circulatory system; R94.01 Abnormal electroencephalogram [EEG]; R32 Unspecified urinary incontinence
CPT/HCPCS: 0241U; 36000; 36415; 70547; 70551; 71046; 71260; 80053; 80061; 83721; 83880; 84484; 85025; 85379; 85610; 93005; 93041; 93225; 93306; 93880; 94760; 95812; 96360; 96374; 99284; 93268; J2405; Q3014; A9270-GY; G0378

== ENCOUNTER 2020-12-02 11:16 | Emergency (ER) | payer MEDICARE ==
--- NOTE | 2020-12-02 11:21 | ERPHSYRPT ---
- History of Present Illness Time Seen by Provider: 12/02/20 11:21 Source: patient Exam Limitations: no limitations Physician History: This is a 65-year-old obese white female patient of Dr. Humphreys who presents with 3+ days of left hip pain. She denies acute trauma or injury to the area. Patient has a history of coronary artery disease, hypertension, elevated cholesterol and fibromyalgia. She also has significant arthritis in that hip. Patient denies chest pain and she denies shortness of breath. Patient is here because she is the pain is worsening. Timing/Duration: day(s) (3) Occured at: other (No acute trauma or injury) Context: other (Patient has pain but no injury. Patient has a history of arthritis in that left hip) Quality: aching Hip Pain Location: hip (L) Severity of Pain-Max: mild (To moderate) Severity of Pain-Current: mild (To moderate) Modifying Factors: Improves With: movement Symptoms prior to fall: none Associated Symptoms: denies symptoms Allergies/Adverse Reactions: amoxicillin trihydrate [From Augmentin] Adverse Reaction (Severe, Verified 12/02/20 11:34) Vomiting potassium clavulanate [From Augmentin] Adverse Reaction (Severe, Verified 12/02/20 11:34) Vomiting Home Medications: Atorvastatin Calcium [Lipitor] 80 mg PO DAILY 05/07/18 [History] Furosemide 20 mg [Lasix 20 mg] 20 mg PO DAILY 05/07/18 [History] Aspirin EC 325 mg [Ecotrin 325 MG] 81 mg PO DAILY 03/08/19 [History] Nifedipine [Nifedipine ER] 30 mg PO DAILY 03/08/19 [History] Melatonin 10 mg PO HS 06/28/20 [History] Valsartan [Diovan] 320 mg PO DAILY 12/02/20 [History] Hx Tetanus, Diphtheria Vaccination/Date Given: Yes Hx Influenza Vaccination/Date Given: Yes Hx Pneumococcal Vaccination/Date Given: Yes Travel Risk - International Travel Have you traveled outside of the country in past 3 weeks: No - Coronavirus Screening Are you exhibiting any of the following symptoms?: No Close contact with a COVID-19 positive Pt in past 14-21 Days: No - Vaccine Status Have you recieved a Covid-19 vaccination: No - Review of Systems Constitutional: No Symptoms Eyes: No Symptoms Ears, Nose, & Throat: No Symptoms Respiratory: No Symptoms Cardiac: No Symptoms Abdominal/Gastrointestinal: No Symptoms Genitourinary Symptoms: No Symptoms Musculoskeletal: Joint Pain (Left hip), No Fall, No Injury Skin: No Symptoms Neurological: No Symptoms Psychological: No Symptoms Endocrine: No Symptoms Hematologic/Lymphatic: No Symptoms Immunological/Allergic: No Symptoms All Other Systems: Reviewed and Negative - Past Medical History Pertinent Past Medical History: Yes Neurological History: No Pertinent History ENT History: No Pertinent History Cardiac History: Coronary Artery Disease, High Cholesterol, Hypertension, Myocardial Infarction ([place]) Respiratory History: No Pertinent History Endocrine Medical History: No Pertinent History Musculoskeletal History: Arthritis, Fibromyalgia GI Medical History: No Pertinent History History: No Pertinent History Psycho-Social History: Depression Female Reproductive Disorders: No Pertinent History Other Medical History: 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 - Past Surgical History Past Surgical History: Yes Neuro Surgical History: No Pertinent History Cardiac: CABG, Cardiac Catheterization, Cardiac Stent Respiratory: No Pertinent History Gastrointestinal: Appendectomy Genitourinary: No Pertinent History Musculoskeletal: No Pertinent History Female Surgical History: Hysterectomy, Tubal Ligation Other Surgical History: 4 TOTAL STENTS 2016 - Social History Smoking Status: Current some day smoker How long have you smoked: 50 yrs Exposure to second hand smoke: Yes Drug Use: none Patient Lives Alone: No - Nursing Vital Signs Nursing Vital Signs: Initial Vital Signs Temperature 97.8 F 12/02/20 11:23 Pulse Rate 67 12/02/20 11:23 Blood Pressure 171/85 12/02/20 11:23 O2 Sat by Pulse Oximetry 100 12/02/20 11:23 Pain Scale Pain Intensity 5 - Physical Exam General Appearance: no apparent distress, alert, anxiety, obese Eye Exam: PERRL/EOMI, eyes nml inspection Ears, Nose, Throat Exam: normal ENT inspection, moist mucous membranes Neck Exam: normal inspection, non-tender, supple, full range of motion Respiratory Exam: airway intact, No chest tenderness, No respiratory distress Pelvic Exam: not done Rectal Exam: not done Back Exam: normal inspection, normal range of motion, No CVA tenderness, No vertebral tenderness Extremity Exam: normal inspection, normal range of motion, pelvis stable, tenderness (Left hip with movement) Neurologic Exam: alert, oriented x 3, cooperative, director of academic support II-XII nml as tested, normal mood/affect, nml cerebellar function, nml station & gait, sensation nml Skin Exam: normal color, warm, dry Lymphatic Exam: No adenopathy SpO2 Interpretation: normal O2 Delivery: Room Air - Course Nursing assessment & vital signs reviewed: Yes Ordered Tests: Active Orders 24 hr Category Date Time Status HIP UNI (2V) INCL PEL IF DONE Stat Exams 12/02/20 11:47 Taken - Progress Progress Note: 12/02/20 12:40 X-ray of left hip and pelvis shows no acute fracture or dislocation. There are chronic arthritic changes present however in the left hip. Counseled pt/family regarding: diagnosis, need for follow-up, rad results - Departure Departure Disposition: Home Clinical Impression: Left hip pain Condition: Stable Critical Care Time: No Referrals: SREEDHAR HUMPHREYS [Primary Care Provider] - Additional Instructions: Follow-up with your primary care physician for further management of your chronic pain issues Prescriptions: Oxycodone HCl/Acetaminophen [Percocet 5-325 mg Tablet] 1 each PO Q8H PRN PRN #6 tablet MDD 3 PRN Reason: Pain Orphenadrine Citrate 100 mg [Norflex 100 MG Tablet] 100 mg PO BID #10 tab
[2020-12-02] MEDS ORDERED: Norflex 100 MG Tablet PO ONE (12:39)
[2020-12-02] MEDS ORDERED: PERCOCET TABLET 5/325MG PO STA (12:39)
[2020-12-02] MEDS ORDERED: PERCOCET TABLET 5/325MG ONE (13:02)
[2020-12-02 13:37] VITALS: BP 160/78; PULSE 66; O2SAT 99
--- NOTE | 2020-12-02 21:03 | XRAY ---
Indication: Pain 4 days. No known injury. Comparison: None AP pelvis and 2 view left hip demonstrates minimal bilateral hip degenerative joint space narrowing, mild bilateral lumbosacral junction degenerative facet arthropathy, minimal vascular calcifications, and right inguinal surgical clip. No other bony, articular, or soft tissue abnormalities.
== END 2020-12-02 13:40 | disposition home or self-care (01) ==
LOC: ED 11:16
DX: M25.552 Pain in left hip (principal)
CPT/HCPCS: 73502; 99283; A9270-GY

== ENCOUNTER 2020-12-11 09:13 | Emergency (ER) | payer MEDICARE ==
[2020-12-11 09:28] VITALS: O2SAT 98
--- NOTE | 2020-12-11 09:38 | ERPHSYRPT ---
- History of Present Illness Time Seen by Provider: 12/11/20 09:30 Source: patient Exam Limitations: no limitations Patient Subjective Stated Complaint: Pt states "I have had this pain for awhile, my family doc sent me to ortho and they gave me a shot in my hip last and it has not helped. I went back to ortho this morning and they sent me here for pain management." Triage Nursing Assessment: Pt presented alert and oriented X 3, skin wpd Pt ambulates with a limp. Pt csm X 4. Pt holding her left hip. Physician History: Patient is a 65-year-old female referred to our ED from orthopedic clinic for pain management of her left hip pain. Patient states she has had left hip pain for several months. Patient followed up with her primary care doctor regarding this pain. Primary care doctor referred patient to orthopedic surgery. Patient had an x-ray of her left hip. Per patient x-ray was essentially nonremarkable. Orthopedics injected her left hip. Patient was discharged home. Patient states her pain is not improved. Pain described as an ache at her left hip that radiates to her left great toe. No specific worsening or improving factors. No fever. No recent back procedures. No saddle anesthesia. No change in bowel bladder function. Patient denies trauma. Patient voices no other complaints concerns at this time. Timing/Duration: week(s) Occured at: other (Pain was of an insidious onset. There was no trauma.) Context: unknown Quality: aching Hip Pain Location: hip (L) Severity of Pain-Max: moderate Severity of Pain-Current: mild Modifying Factors: Improves With: movement (Pain is constant. Pain somewhat worse upon weightbearing.) Symptoms prior to fall: none Associated Symptoms: No fever, No muscle aches Allergies/Adverse Reactions: amoxicillin trihydrate [From Augmentin] Adverse Reaction (Severe, Verified 12/02/20 11:34) Vomiting potassium clavulanate [From Augmentin] Adverse Reaction (Severe, Verified 12/02/20 11:34) Vomiting Home Medications: Atorvastatin Calcium [Lipitor] 80 mg PO DAILY 05/07/18 [History] Furosemide 20 mg [Lasix 20 mg] 20 mg PO DAILY 05/07/18 [History] Aspirin EC 325 mg [Ecotrin 325 MG] 81 mg PO DAILY 03/08/19 [History] Nifedipine [Nifedipine ER] 30 mg PO DAILY 03/08/19 [History] Melatonin 10 mg PO HS 06/28/20 [History] Valsartan [Diovan] 320 mg PO DAILY 12/02/20 [History] Hx Tetanus, Diphtheria Vaccination/Date Given: Yes Hx Influenza Vaccination/Date Given: Yes Hx Pneumococcal Vaccination/Date Given: Yes Immunizations Up to Date: Yes Travel Risk - International Travel Have you traveled outside of the country in past 3 weeks: No - Coronavirus Screening Are you exhibiting any of the following symptoms?: No Close contact with a COVID-19 positive Pt in past 14-21 Days: No - Vaccine Status Have you recieved a Covid-19 vaccination: No 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: [employer] - Vaccination Dates Date of 2cond Vaccination (if applicable): hasn't received yet - Review of Systems Constitutional: No Symptoms, No Fever, No Chills Eyes: No Symptoms Ears, Nose, & Throat: No Symptoms Respiratory: No Symptoms, No Cough, No Dyspnea Cardiac: No Symptoms, No Chest Pain, No Edema, No Syncope Abdominal/Gastrointestinal: No Symptoms, No Abdominal Pain, No Nausea, No Vomiting, No Diarrhea Genitourinary Symptoms: No Symptoms, No Dysuria Musculoskeletal: No Symptoms, No Back Pain, No Neck Pain Skin: No Symptoms, No Rash Neurological: No Symptoms, No Dizziness, No Focal Weakness, No Sensory Changes Psychological: No Symptoms Endocrine: No Symptoms Hematologic/Lymphatic: No Symptoms Immunological/Allergic: No Symptoms All Other Systems: Reviewed and Negative - Past Medical History Pertinent Past Medical History: Yes Neurological History: No Pertinent History ENT History: No Pertinent History Cardiac History: Coronary Artery Disease, High Cholesterol, Hypertension, Myocardial Infarction ([place]) Respiratory History: No Pertinent History Endocrine Medical History: No Pertinent History Musculoskeletal History: Arthritis, Fibromyalgia GI Medical History: No Pertinent History History: No Pertinent History Psycho-Social History: Depression Female Reproductive Disorders: No Pertinent History Other Medical History: 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 - Past Surgical History Past Surgical History: Yes Neuro Surgical History: No Pertinent History Cardiac: CABG, Cardiac Catheterization, Cardiac Stent Respiratory: No Pertinent History Gastrointestinal: Appendectomy Genitourinary: No Pertinent History Musculoskeletal: No Pertinent History Female Surgical History: Hysterectomy, Tubal Ligation Other Surgical History: 4 TOTAL STENTS 2016 - Social History Smoking Status: Current some day smoker How long have you smoked: 50 yrs Exposure to second hand smoke: Yes Drug Use: none Patient Lives Alone: No - Nursing Vital Signs Nursing Vital Signs: Initial Vital Signs Temperature 97.2 F 12/11/20 09:23 Pulse Rate 60 12/11/20 09:23 Respiratory Rate 20 12/11/20 09:23 Blood Pressure 170/83 12/11/20 09:23 O2 Sat by Pulse Oximetry 98 12/11/20 09:23 Pain Scale Pain Intensity 8 - Physical Exam General Appearance: no apparent distress, alert Eye Exam: PERRL/EOMI Ears, Nose, Throat Exam: normal ENT inspection, moist mucous membranes Neck Exam: normal inspection, non-tender, supple Respiratory Exam: normal breath sounds, lungs clear, No chest tenderness, No respiratory distress Cardiovascular Exam: regular rate/rhythm, No edema Gastrointestinal Exam: soft, No tenderness, No distention, No guarding Back Exam: normal inspection, normal range of motion, No vertebral tenderness Extremity Exam: other (Bilateral lower extremities neurovascular tact distally. There is pain with straight leg raise. No pain with logroll of the left lower extremity or heel tapping. It appears patient's pain is coming from her low back. Pain at left great toe. It appears L5 nerve root is involved.) Neurologic Exam: alert, oriented x 3, cooperative, priming mixture carrier II-XII nml as tested, sensation nml, No motor deficits Skin Exam: normal color, warm, dry, No rash SpO2 Interpretation: normal SpO2: 98 O2 Delivery: Room Air - Course Nursing assessment & vital signs reviewed: Yes - Radiology Exams L-Spine X-ray Interpretation: Teleradiologist Report (X-ray reveals new L3 superior endplate fracture with less than 20% height loss and mild diffuse fecal stasis. Remaining lumbar spine unremarkable.) Ordered Tests: Active Orders 24 hr Category Date Time Status LUMBAR LIMITED (2 OR 3 VIEWS) Stat Exams 12/11/20 09:32 Completed Medication Summary Discontinued Medications Generic Name Dose Route Start Last Admin Trade Name Freq PRN Reason Stop Dose Admin Dexamethasone Sodium Phosphate 10 mg 12/11/20 09:45 12/11/20 09:53 Decadron 10mg Inj. IM 12/11/20 09:46 10 mg STAT ONE Administration Dexamethasone Sodium Phosphate Confirm 12/11/20 09:51 Decadron 10mg Inj. Administered 12/11/20 09:52 Dose 10 mg .ROUTE .STK-MED ONE Ketorolac Tromethamine 60 mg 12/11/20 09:45 12/11/20 09:52 Toradol 30 Mg Injection IM 12/11/20 09:46 60 mg STAT ONE Administration Ketorolac Tromethamine Confirm 12/11/20 09:51 Toradol 30 Mg Injection Administered 12/11/20 09:52 Dose 30 mg .ROUTE .STK-MED ONE Ketorolac Tromethamine Confirm 12/11/20 09:53 Toradol 30 Mg Injection Administered 12/11/20 09:54 Dose 30 mg .ROUTE .STK-MED ONE - Progress Progress: improved Progress Note: Patient reassessed. Pain improved. Toradol and Decadron administered. X-ray reveals a new L3 superior endplate fracture with less than 20% height loss and mild diffuse fecal stasis. I spoke to patient's orthopedist Trevor Ellsworth who will follow up. This fracture is stable. Patient will have movement limitations due to this fracture. Patient understands the limitations no heavy lifting. Logrolled. Ergonomically correct motions. Patient will follow up with orthopedic tomorrow. Portions of this note were created with voice recognition technology. There may be grammatical, spelling, punctuation or sound alike errors 12/11/20 10:36 Counseled pt/family regarding: diagnosis, need for follow-up, rad results - Departure Departure Disposition: Home Clinical Impression: L3 superior endplate fracture , Constipation, Referred pain Condition: Stable Critical Care Time: No Referrals: SREEDHAR RAY [Primary Care Provider] - Additional Instructions: Discharge/Care Plan MAKSIMJOVANY STERLING was seen on 12/11/20 in the Emergency Room. The patient was counseled regarding Diagnosis,Lab results, Imaging studies, need for follow up and when to return to the Emergency Room. Prescriptions given: Discharge Note I have spoken with the patient and/or caregivers. I have explained the patient's condition, diagnosis and treatment plan based on the information available to me at this time. I have answered the patient's and/or caregiver's questions and addressed any concerns. The patient and/or caregivers have as good understanding of the patient's diagnosis, condition and treatment plan as can be expected at this point. The vital signs have been stable. The patient's condition is stable and appropriate for discharge from the emergency department. The patient will pursue further outpatient evaluation with the primary care physician or other designated or consulting physician as outlined in the discharge instructions. The patient and/or caregivers are agreeable to this plan of care and follow-up instructions have been explained in detail. The patient and/or caregivers have received these instruction. The patient/and or caregivers are aware that any significant change in condition or worsening of symptoms should prompt an immediate return to this or the closest emergency department or call 911. Outpatient Orders: Ortho Referral Time Frame: 1 Day, Facility: [facility]. Hosp, Location: [facility]
[2020-12-11] MEDS ORDERED: TORAdol 30 mg Injection IM ONE (09:45)
[2020-12-11] MEDS ORDERED: DECADRON 10MG INJ. IM ONE (09:45)
[2020-12-11] MEDS ORDERED: DECADRON 10MG INJ. ONE (09:51)
[2020-12-11] MEDS ORDERED: TORAdol 30 mg Injection ONE ×2 (09:51→09:53)
--- NOTE | 2020-12-11 10:20 | XRAY ---
Indication: Pain. Comparison: May 18, 2016. 3 view lumbar spine again demonstrates osteopenia, minimal levorotoscoliosis centered at L3, mild/moderate multilevel degenerative spondylosis, and aortic calcifications. New L3 superior endplate fracture with less than 20% height loss and mild diffuse fecal stasis. Remaining lumbar spine unremarkable.
[2020-12-11 10:29] VITALS: BP 151/106; PULSE 62
== END 2020-12-11 10:53 | disposition home or self-care (01) ==
LOC: ED 09:13
DX: S72.092A Other fracture of head and neck of left femur, initial encounter for closed fracture (principal); K59.00 Constipation, unspecified; M25.552 Pain in left hip; Z79.899 Other long term (current) drug therapy; I25.10 Atherosclerotic heart disease of native coronary artery without angina pectoris; E78.00 Pure hypercholesterolemia, unspecified; I10 Essential (primary) hypertension; I25.2 Old myocardial infarction
CPT/HCPCS: 72100; 96372; 99284; J1100; J1885

== ENCOUNTER 2020-12-26 12:12 | Day surgery (SDC) | payer MEDICARE ==
[2020-12-26] MEDS ORDERED: Depo-Medrol 80 MG/ML IM ONE (12:13)
[2020-12-26] MEDS ORDERED: Sodium Chloride 0.9(Preservative Free) 10 ML IJ ONE (12:13)
[2020-12-26] MEDS ORDERED: DIPRIVAN 200 MG/20 ML IV ONE (14:12)
[2020-12-26] MEDS ORDERED: MORPHINE SULFATE 2 MG INJ ONE (14:25)
--- NOTE | 2020-12-26 16:28 | XRAY ---
Indication: Left L4-S1 transforaminal CARO. Intraoperative fluoroscopy provided for 20 seconds. 4 digital spot image submitted for interpretation demonstrates posterior needle tips projecting over the expected left L4 and L5 nerve roots. Small amount of contrast injected for needle tip placement. Correlate with intraoperative findings/report.
--- NOTE | 2020-12-26 16:41 | XRAY ---
20 seconds of fluoroscopy was used in surgery for a left L4-S1 transforaminal CARO.
[2020-12-26] MEDS ORDERED: Lactated Ringers 1,000 ML IV ONE (17:28)
== END 2020-12-26 14:37 | disposition home or self-care (01) ==
LOC: SDC-PAIN 12:12
PROVIDERS: ATTEND Psychiatry & Neurology Pain Medicine
DX: M54.16 Radiculopathy, lumbar region (principal); Z79.899 Other long term (current) drug therapy
CPT/HCPCS: 64483; 64484; 72100; 77003; J1040; J2270; J2704; Q9966

== ENCOUNTER 2021-03-18 19:27 | Emergency (ER) | payer MEDICARE ==
--- NOTE | 2021-03-18 20:00 | ERPHSYRPT ---
- History of Present Illness Source: patient Exam Limitations: no limitations Patient Subjective Stated Complaint: double vision Triage Nursing Assessment: Patient ambulated back to ED and transferred self to bed. Patient A+O x3. Patient's skin pink, warm and dry. Patient states she was sitting at her dining room table 15 min prior to arrival when she started seeing double with no pain. Patient states her left eye is nothing but a blur. Patient denies pain or discomfort. Physician History: 65 yo wf w 30min h/o diplopia which progressed to L eye blurry vision. Pt denies any focal weakness/headache/trauma/n/v/fever. She states that she has a h/o a CVA which caused bleeding in her L eye which required opthamologic care. Timing/Duration: other (30min) Character of Deficits: vision problems (Blurry vision L eye) Deficits: no difficulties Baseline/Normal Cognition: alert oriented x 3 Current Cognition: alert oriented x 3 Baseline Gait: walks w/o assistance Associated Symptoms: vision changes, No confusion, No fatigue, No fever, No chills, No loss of consciousness, No nausea, No vomiting, No weakness, No insomnia, No muscle spasms, No numbness/tingling in legs/feet, No paresthesia, No ringing in ears, No seizures, No slurred speech, No trouble walking, No chest pain Allergies/Adverse Reactions: amoxicillin trihydrate [From Augmentin] Adverse Reaction (Severe, Verified 03/18/21 19:38) Vomiting potassium clavulanate [From Augmentin] Adverse Reaction (Severe, Verified 03/18/21 19:38) Vomiting Home Medications: Atorvastatin Calcium [Lipitor] 80 mg PO DAILY 05/07/18 [History] Furosemide 20 mg [Lasix 20 mg] 20 mg PO DAILY 05/07/18 [History] Aspirin EC 325 mg [Ecotrin 325 MG] 81 mg PO DAILY 03/08/19 [History] Nifedipine [Nifedipine ER] 30 mg PO DAILY 03/08/19 [History] Melatonin 10 mg PO HS 06/28/20 [History] Valsartan [Diovan] 320 mg PO DAILY 12/02/20 [History] Hx Tetanus, Diphtheria Vaccination/Date Given: Yes Hx Influenza Vaccination/Date Given: Yes Hx Pneumococcal Vaccination/Date Given: Yes Immunizations Up to Date: Yes Travel Risk - International Travel Have you traveled outside of the country in past 3 weeks: No - Coronavirus Screening Are you exhibiting any of the following symptoms?: No Close contact with a COVID-19 positive Pt in past 14-21 Days: No - Vaccine Status Have you recieved a Covid-19 vaccination: No 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 - Vaccination Dates Date of 2cond Vaccination (if applicable): 12/13/2020 - Review of Systems Constitutional: No Symptoms Eyes: No Symptoms, Vision Changes, Double Vision Ears, Nose, & Throat: No Symptoms Respiratory: No Symptoms Cardiac: No Symptoms Abdominal/Gastrointestinal: No Symptoms Genitourinary Symptoms: No Symptoms Musculoskeletal: No Symptoms Skin: No Symptoms Neurological: No Symptoms Psychological: No Symptoms Endocrine: No Symptoms Hematologic/Lymphatic: No Symptoms Immunological/Allergic: No Symptoms - Past Medical History Pertinent Past Medical History: Yes Neurological History: No Pertinent History ENT History: No Pertinent History Cardiac History: Coronary Artery Disease, High Cholesterol, Hypertension, Myocardial Infarction ([place]) Respiratory History: No Pertinent History Endocrine Medical History: No Pertinent History Musculoskeletal History: Arthritis, Fibromyalgia GI Medical History: No Pertinent History History: No Pertinent History Psycho-Social History: Depression Female Reproductive Disorders: No Pertinent History Other Medical History: 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 - Past Surgical History Past Surgical History: Yes Neuro Surgical History: No Pertinent History Cardiac: CABG, Cardiac Catheterization, Cardiac Stent Respiratory: No Pertinent History Gastrointestinal: Appendectomy Genitourinary: No Pertinent History Musculoskeletal: No Pertinent History Female Surgical History: Hysterectomy, Tubal Ligation Other Surgical History: 4 TOTAL STENTS 2016 - Social History Smoking Status: Current some day smoker How long have you smoked: 50 yrs Exposure to second hand smoke: Yes Drug Use: none Patient Lives Alone: No Significant Family History: no pertinent family hx - Female History Hx Now: No - Nursing Vital Signs Nursing Vital Signs: Initial Vital Signs Temperature 96.8 F 03/18/21 19:38 Pulse Rate 77 03/18/21 19:38 Respiratory Rate 18 03/18/21 19:38 Blood Pressure 157/70 03/18/21 19:38 O2 Sat by Pulse Oximetry 98 03/18/21 19:38 Pain Scale Pain Intensity 0 Hypertensive - Aman Coma Scale Best Eye Response (Aman): (4) open spontaneously Best Verbal Response (Aman): (5) oriented Best Motor Response ([place]): (6) obeys commands Aman Total: 15 - Physical Exam General Appearance: no apparent distress Eye Exam: left eye: other (Vision impaired L eye/Visual field L eye impaired), bilateral eye: PERRL, EOMI Ears, Nose, Throat Exam: normal ENT inspection, TMs normal, pharynx normal, moist mucous membranes Neck Exam: normal inspection, non-tender, supple, full range of motion, No meningismus, No mass, No Brudzinski, No Kernig's Respiratory: normal breath sounds, lungs clear, airway intact, No respiratory distress Cardiovascular: regular rate/rhythm, normal heart sounds, No murmur Gastrointestinal: soft, normal bowel sounds, No tenderness Back Exam: normal inspection, normal range of motion, No CVA tenderness Extremity Exam: normal inspection, normal range of motion Peripheral Pulses: carotid (R): 2+, carotid (L): 2+ 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, oriented x 3, cooperative folder machine Exam: normal hearing, normal speech, PERRL Coordination/Gait: normal cerebellar function, negative Romberg's sign Motor/Sensory: no motor deficit, no sensory deficit, no pronator drift DTR: bicep (R): 2+, bicep (L): 2+ Skin Exam: normal color, warm, dry SpO2 Interpretation: normal SpO2: 98 O2 Delivery: Room Air - Course Nursing assessment & vital signs reviewed: Yes EKG Interpreted by Me: RATE (NSR/R69/RBBB/Prolonged QTc/Inferior Qwaves/Flat Twaves) - CT Exams Maxillofacial Bones CT Interpretation: Discussed w/radiologist (CT head-remote lacunar infarct/Nothing acute) Ordered Tests: Active Orders 24 hr Category Date Time Status AMA [Release AMA] OM.NOW Care 03/19/21 00:29 Completed EKG-ER Only STAT Care 03/18/21 19:45 Completed NPO (ED) STAT Care 03/18/21 19:44 Completed HEAD WITHOUT CONTRAST [CT] Stat Exams 03/18/21 19:44 Taken CBC W DIFF Stat Lab 03/18/21 19:50 Completed CMP Stat Lab 03/18/21 19:50 Completed PROTIME WITH INR Stat Lab 03/18/21 19:50 Completed PTT Stat Lab 03/18/21 19:50 Completed Lab/Rad Data: Laboratory Result Diagrams 03/18/21 19:50 03/18/21 19:50 Laboratory Results 03/18/21 03/18/21 03/18/21 Range/Units 19:50 19:50 19:50 WBC 8.6 (4.0-10.5) K/mm3 RBC 3.84 L (4.1-5.4) M/mm3 Hgb 12.0 (12.0-16.0) gm/dl Hct 38.0 (35-47) % MCV 99.0 (78-100) fl MCH 31.3 (26-32) pg MCHC 31.6 L (32-36) g/dl RDW 13.5 (11.5-14.0) % Plt Count 310 (150-450) K/mm3 MPV 9.3 (7.5-11.0) fl Gran % 54.0 (36.0-66.0) % Eos # (Auto) 0.25 (0-0.5) Absolute Lymphs (auto) 2.81 (1.0-4.6) Absolute Monos (auto) 0.84 (0.0-1.3) Lymphocytes % 32.7 (24.0-44.0) % Monocytes % 9.8 (0.0-12.0) % Eosinophils % 2.9 (0.00-5.0) % Basophils % 0.6 (0.0-0.4) % Absolute Granulocytes 4.64 (1.4-6.9) Basophils # 0.05 (0-0.4) PT 12.7 H (9.4-12.5) SECONDS INR 1.08 (0.8-3.0) APTT 36.4 (25.1-36.5) SECONDS Sodium 139 (137-145) mmol/L Potassium 3.8 (3.5-5.1) mmol/L Chloride 105 (98-107) mmol/L Carbon Dioxide 25 (22-30) mmol/L Anion Gap 13.2 (5-15) MEQ/L BUN 24 H (7-17) mg/dL Creatinine 0.99 (0.52-1.04) mg/dL Estimated GFR 59.8 ML/MIN Glucose 100 (74-106) mg/dL Calcium 9.6 (8.4-10.2) mg/dL Total Bilirubin 0.30 (0.2-1.3) mg/dL AST 21 (14-36) U/L ALT 19 (0-35) U/L Alkaline Phosphatase 89 (38-126) U/L Serum Total Protein 6.3 (6.3-8.2) g/dL Albumin 4.1 (3.5-5.0) g/dL - Progress Progress Note: 03/19/21 00:32 Pt w h/o L retinal artery branch occlusion per Dr. Badillo. Dr Badillo states that pt is noncompliant and refuses to see pt. He does state that pt could have a CVA or another L artery occlusion. [facility] called and stated that Hospitalist would posibly call us which did not happen. I related to pt that she needed a Neurologist/Opthamologist consult and would be reaching out to other hospitals. Pt decided that she would rather leave AMA and try to get an appointment with an opthamologist. Risks of blindness in L eye related to pt but still elected to leave AMA. 03/19/21 00:36 03/19/21 02:11 03/19/21 02:13 [facility] later called after pt signed out AMA. 03/19/21 04:36 Counseled pt/family regarding: lab results, diagnosis, rad results - Departure Departure Disposition: AMA Clinical Impression: Ocular ischemic syndrome Condition: Stable Critical Care Time: No Referrals: SREEDHAR RAY [Primary Care Provider] - Follow up/PCP as directed
[2021-03-18 20:14] LABS: Absolute Neutrophil Ct (ANC) 4.64 (1.4-6.9); BASOPHIL % 0.6 % (0.0-0.4); Basophil (Absolute #) 0.05 (0-0.4); Eosinophil % 2.9 % (0.00-5.0); Eosinophil (Absolute #) 0.25 (0-0.5); Lymphocyte (Absolute #) 2.81 (1.0-4.6); Lymphocytes % 32.7 % (24.0-44.0); Mean Corpuscular Hemoglobin 31.3 pg (26-32); Mean Corpuscular Hgb Concent. 31.6 g/dl (32-36); Mean Platelet Volume 9.3 fl (7.5-11.0); Monocyte (Absolute #) 0.84 (0.0-1.3); Monocytes % 9.8 % (0.0-12.0); Platelet Count 310 K/mm3 (150-450); Red Blood Count 3.84 M/mm3 (4.1-5.4); Red Cell Distribution Width 13.5 % (11.5-14.0); White Blood Count 8.6 K/mm3 (4.0-10.5)
[2021-03-18 20:15] LABS: INR 1.08 (0.8-3.0); PROTIME 12.7 SECONDS (9.4-12.5)
[2021-03-18 20:18] LABS: PTT 36.4 SECONDS (25.1-36.5)
[2021-03-18 20:22] LABS: ALBUMIN 4.1 g/dL (3.5-5.0); ANION GAP 13.2 MEQ/L (5-15); BILIRUBIN,TOTAL 0.3 mg/dL (0.2-1.3); Calcium 9.6 mg/dL (8.4-10.2); Creatinine 1 0.99 mg/dL (0.52-1.04); EST GLOMERULAR FILTRATION RATE 59.8 ML/MIN; Potassium 3.8 mmol/L (3.5-5.1); Total Protein 6.3 g/dL (6.3-8.2)
[2021-03-18 21:52] VITALS: BP 154/77; PULSE 75
[2021-03-18 21:57] VITALS: O2SAT 98
--- NOTE | 2021-03-19 08:59 | XRAY ---
Indication: Left vision changes. Stroke. Multiple contiguous axial images obtained through the head without contrast. Comparison: None. Age-appropriate global atrophy, moderate periventricular degenerative micro-ischemia bilaterally, and small remote infarct right external capsule. No acute intracranial hemorrhage, abnormal extra-axial fluid collection, or mass effect. Fourth ventricle is midline without hydrocephalus. Bony calvarium intact. Visualized paranasal sinuses and mastoid air cells are clear. Impression: Nonacute senile brain with old infarct right external capsule. Findings are similar to MRI brain June 29, 2020.
== END 2021-03-19 00:52 | disposition left against medical advice (07) ==
LOC: ED 19:27
DX: H35.82 Retinal ischemia (principal); E78.5 Hyperlipidemia, unspecified; I10 Essential (primary) hypertension; I25.10 Atherosclerotic heart disease of native coronary artery without angina pectoris; I25.2 Old myocardial infarction; Z72.0 Tobacco use
CPT/HCPCS: 36000; 36415; 70450; 80053; 85025; 85610; 85730; 93005; 99284

== ENCOUNTER 2021-04-24 08:53 | Day surgery (SDC) | payer MEDICARE ==
[2021-04-24] MEDS ORDERED: Depo-Medrol 40 MG/ML IM ONE (08:54)
[2021-04-24] MEDS ORDERED: LIDOCAINE HCL 2% 100 MG/5 ML IJ ONE (08:54)
[2021-04-24] MEDS ORDERED: DIPRIVAN 200 MG/20 ML IV ONE (10:48)
--- NOTE | 2021-04-24 11:49 | XRAY ---
Indication: Right T9-T12 MBB. Intraoperative fluoroscopy was provided for 27 seconds. 2 digital spot image submitted for interpretation demonstrates posterior needle tips projecting over the expected right T9-T12 nerve roots. Correlate with intraoperative findings/report.
--- NOTE | 2021-04-24 12:38 | XRAY ---
27 seconds of fluoroscopy was used in surgery for a right T9-T12 MBB.
[2021-04-24] MEDS ORDERED: Lactated Ringers 1,000 ML IV ONE (13:12)
== END 2021-04-24 11:17 | disposition home or self-care (01) ==
LOC: SDC-PAIN 08:53
PROVIDERS: ATTEND Psychiatry & Neurology Pain Medicine
DX: M47.814 Spondylosis without myelopathy or radiculopathy, thoracic region (principal); Z79.899 Other long term (current) drug therapy
CPT/HCPCS: 64490; 64491; 64492; 72072; 77002; J1030; J2704

== ENCOUNTER 2021-06-05 12:23 | Day surgery (SDC) | payer MEDICARE ==
[2021-06-05] MEDS ORDERED: Depo-Medrol 40 MG/ML IM ONE (15:10)
[2021-06-05] MEDS ORDERED: LIDOCAINE HCL 2% 100 MG/5 ML IJ ONE (15:10)
[2021-06-05] MEDS ORDERED: DIPRIVAN 200 MG/20 ML IV ONE (15:35)
[2021-06-05] MEDS ORDERED: Lactated Ringers 1,000 ML IV ONE (16:14)
--- NOTE | 2021-06-05 16:38 | XRAY ---
Indication: Left T9-T12 MBB. Intraoperative fluoroscopy provided for 22 seconds. Single digital spot image submitted for interpretation demonstrates posterior needle tips projecting over the expected left T9-T12 nerve roots. Correlate with intraoperative findings/report.
--- NOTE | 2021-06-05 17:18 | XRAY ---
22 seconds of fluoroscopy was used in surgery for a left T9-T12 MBB.
== END 2021-06-05 16:03 | disposition home or self-care (01) ==
LOC: SDC-PAIN 12:23
PROVIDERS: ATTEND Psychiatry & Neurology Pain Medicine
DX: M47.814 Spondylosis without myelopathy or radiculopathy, thoracic region (principal); I10 Essential (primary) hypertension; Z79.899 Other long term (current) drug therapy
CPT/HCPCS: 64490; 64491; 64492; 72072; 77002; J1030; J2704

== ENCOUNTER 2021-07-18 12:24 | Day surgery (SDC) | payer MEDICARE ==
[2021-07-18] MEDS ORDERED: BUPIVACAINE 0.5% VIAL IJ ONE (12:25)
[2021-07-18] MEDS ORDERED: Depo-Medrol 40 MG/ML IM ONE (12:25)
[2021-07-18] MEDS ORDERED: Lactated Ringers 1,000 ML IV ONE (14:57)
[2021-07-18] MEDS ORDERED: DIPRIVAN 200 MG/20 ML IV ONE (15:08)
--- NOTE | 2021-07-18 16:50 | XRAY ---
Indication: Bilateral SI joint injection. Intraoperative fluoroscopy provided for 22 seconds. 4 digital spot image submitted for interpretation demonstrates posterior needle tip projecting over the inferior left and right SI joint. Correlate with intraoperative findings/report.
--- NOTE | 2021-07-18 16:58 | XRAY ---
22 seconds fluoroscopy time in surgery for bilateral SI joint injections.
== END 2021-07-18 15:35 | disposition home or self-care (01) ==
LOC: SDC-PAIN 12:24
PROVIDERS: ATTEND Psychiatry & Neurology Pain Medicine
DX: M46.1 Sacroiliitis, not elsewhere classified (principal); I10 Essential (primary) hypertension; Z79.899 Other long term (current) drug therapy
CPT/HCPCS: 27096; 72202; 77002; G0260; J1030; J2704

== ENCOUNTER 2021-08-15 09:45 | Day surgery (SDC) | payer MEDICARE ==
[2021-08-15] MEDS ORDERED: Depo-Medrol 40 MG/ML IM ONE (09:46)
[2021-08-15] MEDS ORDERED: Xylocaine 1% Vial 30 ML PF IJ ONE (09:46)
[2021-08-15] MEDS ORDERED: Marcaine Mpf 0.5% Vial 30 Ml IJ ONE (09:46)
[2021-08-15] MEDS ORDERED: Lactated Ringers 1,000 ML IV ONE (10:24)
--- NOTE | 2021-08-15 12:35 | XRAY ---
Indication: Right T9-T12 RFA. Intraoperative fluoroscopy provided for 20 seconds. Single digital spot image submitted for interpretation demonstrates posterior needle tips projecting over the expected right T10-T12 nerve roots. Correlate with intraoperative findings/report.
--- NOTE | 2021-08-15 13:05 | XRAY ---
20 seconds of fluoroscopy was used in surgery for a right T9-T12 RFA.
== END 2021-08-15 12:18 | disposition home or self-care (01) ==
LOC: SDC-PAIN 09:45
PROVIDERS: ATTEND Psychiatry & Neurology Pain Medicine
DX: M47.816 Spondylosis without myelopathy or radiculopathy, lumbar region (principal); Z79.899 Other long term (current) drug therapy
CPT/HCPCS: 01939; 64633; 64634; 72072; 77002; J1030; J2001

== ENCOUNTER 2021-08-21 12:49 | Day surgery (SDC) | payer MEDICARE ==
[2021-08-21] MEDS ORDERED: Xylocaine 1% Vial 30 ML PF IJ ONE (12:50)
[2021-08-21] MEDS ORDERED: Marcaine Mpf 0.5% Vial 30 Ml IJ ONE (12:50)
[2021-08-21] MEDS ORDERED: Depo-Medrol 40 MG/ML IM ONE (12:50)
[2021-08-21] MEDS ORDERED: Lactated Ringers 1,000 ML IV ONE (15:01)
[2021-08-21] MEDS ORDERED: DIPRIVAN 200 MG/20 ML IV ONE (15:18)
[2021-08-21] MEDS ORDERED: Xylocaine-Mpf 2% 5 Ml Vial ONE (15:25)
--- NOTE | 2021-08-21 16:35 | XRAY ---
Indication: Left T9-T12 RFA. Intraoperative fluoroscopy provided for 21 seconds. Single digital spot image submitted for interpretation demonstrates posterior needle tips projecting over the expected left T9-T12 nerve roots. Correlate with intraoperative findings/report.
--- NOTE | 2021-08-21 16:45 | XRAY ---
21 seconds of fluoroscopy was used in surgery for a left T9-T12 RFA.
== END 2021-08-21 15:50 | disposition home or self-care (01) ==
LOC: SDC-PAIN 12:49
PROVIDERS: ATTEND Psychiatry & Neurology Pain Medicine
DX: M47.816 Spondylosis without myelopathy or radiculopathy, lumbar region (principal); Z79.899 Other long term (current) drug therapy
CPT/HCPCS: 01939; 64633; 64634; 72072; 77002; J1030; J2001; J2704

== ENCOUNTER 2021-09-25 10:51 | Day surgery (SDC) | payer MEDICARE ==
[2021-09-25] MEDS ORDERED: XYLOCAINE-MPF 1% 5ML SDV IJ ONE (10:52)
[2021-09-25] MEDS ORDERED: DIPRIVAN 200 MG/20 ML IV ONE (12:20)
[2021-09-25] MEDS ORDERED: Lactated Ringers 1,000 ML IV ONE (12:38)
--- NOTE | 2021-09-26 18:30 | XRAY ---
12 seconds fluoroscopy time in surgery for bilateral L4-S1 MBB.
--- NOTE | 2021-09-27 20:46 | XRAY ---
Indication: Bilateral L4-S1 MBB. Intraoperative fluoroscopy provided for 12 seconds. Single digital spot image submitted for interpretation demonstrates posterior needle tips projecting over the expected right and left L4-S1 nerve roots. Correlate with intraoperative findings/report.
== END 2021-09-25 12:43 | disposition home or self-care (01) ==
LOC: SDC-PAIN 10:51
PROVIDERS: ATTEND Psychiatry & Neurology Pain Medicine
DX: M47.816 Spondylosis without myelopathy or radiculopathy, lumbar region (principal); Z79.899 Other long term (current) drug therapy
CPT/HCPCS: 64493; 64494; 72020; 77002; J2704

== ENCOUNTER 2021-10-23 12:24 | Day surgery (SDC) | payer MEDICARE ==
[2021-10-23] MEDS ORDERED: Marcaine Mpf 0.5% Vial 30 Ml IJ ONE (12:25)
[2021-10-23] MEDS ORDERED: Lactated Ringers 1,000 ML IV ONE (12:25)
[2021-10-23] MEDS ORDERED: Xylocaine-Mpf 2% 5 Ml Vial ONE (14:32)
[2021-10-23] MEDS ORDERED: DIPRIVAN 200 MG/20 ML IV ONE (14:32)
--- NOTE | 2021-10-23 16:06 | XRAY ---
Indication: Bilateral L4-S1 MBB. Intraoperative fluoroscopy provided for 10 seconds. Single digital spot image submitted for interpretation demonstrates posterior needle tips projecting over the expected left and right L4-S1 nerve roots. Correlate with intraoperative findings/report.
--- NOTE | 2021-10-23 16:31 | XRAY ---
10 seconds of fluoroscopy was used in surgery for a bilateral L4-S1 MBB.
== END 2021-10-23 14:55 | disposition home or self-care (01) ==
LOC: SDC-PAIN 12:24
PROVIDERS: ATTEND Psychiatry & Neurology Pain Medicine
DX: M47.816 Spondylosis without myelopathy or radiculopathy, lumbar region (principal); Z79.899 Other long term (current) drug therapy
CPT/HCPCS: 64493; 64494; 72020; 77002; J2704

== ENCOUNTER 2021-11-27 14:13 | Day surgery (SDC) | payer MEDICARE ==
[2021-11-27] MEDS ORDERED: XYLOCAINE-MPF 1% 5ML SDV IJ ONE (14:14)
[2021-11-27] MEDS ORDERED: Depo-Medrol 40 MG/ML IM ONE (14:14)
[2021-11-27] MEDS ORDERED: Marcaine Mpf 0.5% Vial 30 Ml IJ ONE (14:14)
[2021-11-27] MEDS ORDERED: Lactated Ringers 1,000 ML IV ONE (15:20)
[2021-11-27] MEDS ORDERED: DIPRIVAN 200 MG/20 ML IV ONE (15:31)
--- NOTE | 2021-11-27 16:47 | XRAY ---
Indication: Left L4-S1 RFA. Intraoperative fluoroscopy provided for 25 seconds. 4 digital spot image submitted for interpretation demonstrates posterior needle tips projecting over the expected left L4-S1 nerve roots. Correlate with intraoperative findings/report.
--- NOTE | 2021-11-27 16:53 | XRAY ---
25 seconds of fluoroscopy was used in surgery for a left L4-S1 RFA.
== END 2021-11-27 16:10 | disposition home or self-care (01) ==
LOC: SDC-PAIN 14:13
PROVIDERS: ATTEND Psychiatry & Neurology Pain Medicine
DX: M47.816 Spondylosis without myelopathy or radiculopathy, lumbar region (principal); Z79.899 Other long term (current) drug therapy
CPT/HCPCS: 64635; 64636; 72100; 77002; J1030; J2704

== ENCOUNTER 2021-12-04 13:01 | Day surgery (SDC) | payer MEDICARE ==
[2021-12-04] MEDS ORDERED: BUPIVACAINE 0.5% VIAL IJ ONE (13:02)
[2021-12-04] MEDS ORDERED: Depo-Medrol 40 MG/ML IM ONE (13:02)
[2021-12-04] MEDS ORDERED: XYLOCAINE-MPF 1% 5ML SDV IJ ONE (13:02)
[2021-12-04] MEDS ORDERED: DIPRIVAN 200 MG/20 ML IV ONE (15:00)
--- NOTE | 2021-12-04 16:29 | XRAY ---
Indication: Right L4-S1 RFA. Intraoperative fluoroscopy provided for 26 seconds. 4 digital spot image submitted for interpretation demonstrates posterior needle tips projecting over the expected right L4-S1 nerve roots. Correlate with intraoperative findings/report.
--- NOTE | 2021-12-04 16:32 | XRAY ---
26 seconds of fluoroscopy was used in surgery for a right L4-S1 RFA.
[2021-12-04] MEDS ORDERED: Lactated Ringers 1,000 ML IV ONE (17:29)
== END 2021-12-04 15:30 | disposition home or self-care (01) ==
LOC: SDC-PAIN 13:01
PROVIDERS: ATTEND Psychiatry & Neurology Pain Medicine
DX: M47.816 Spondylosis without myelopathy or radiculopathy, lumbar region (principal); Z79.899 Other long term (current) drug therapy
CPT/HCPCS: 64635; 64636; 72100; 77002; J1030; J2704

== ENCOUNTER 2022-01-02 15:02 | Emergency (ER) | payer MEDICARE ==
[2022-01-02] MEDS ORDERED: Sodium Chloride 0.9% 1000 ML 1,000 ML IV STA (15:49)
--- NOTE | 2022-01-02 16:01 | ERPHSYRPT ---
- History of Present Illness Time Seen by Provider: 01/02/22 15:30 Source: patient Exam Limitations: no limitations Patient Subjective Stated Complaint: pt here for low b/p today , she was working outside [employer] and became alittle weak and seeing dots Triage Nursing Assessment: pt alert, resp easy, face mask in place, skin w/d/p. no edema noted. moves all ext well Physician History: Patient is a 66-year-old female presents to emergency department for evaluation of hypotension. Patient states she was outdoors burning brush. Patient felt a little weak. Patient felt dizzy as though she was going to pass out. Patient saw spots in her visual field. She checked her blood pressure observed that her blood pressure was lower than normal. Patient has a history of triple bypass performed approximately 3 years ago. 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 Cyr. Patient feels much better at this time. She voices no other complaints or concerns at this time. No associated nausea vomiting. No chest pain or short ness of breath. No fever. No rash. Patient voices no other complaints or concerns at this time. Portions of this note were created with voice recognition technology. There may be grammatical, spelling, punctuation or sound alike errors Timing/Duration: today Severity: moderate Modifying Factors: Improves With: nothing Associated Symptoms: denies symptoms Allergies/Adverse Reactions: amoxicillin trihydrate [From Augmentin] Adverse Reaction (Severe, Verified 01/02 15:29) Vomiting potassium clavulanate [From Augmentin] Adverse Reaction (Severe, Verified 01/02 15:29) Vomiting Home Medications: Atorvastatin Calcium [Lipitor] 80 mg PO DAILY 05/07/18 [History] Furosemide 20 mg [Lasix 20 mg] 20 mg PO DAILY 05/07/18 [History] Nifedipine [Nifedipine ER] 30 mg PO DAILY 03/08/19 [History] Melatonin 10 mg PO HS 06/28/20 [History] Valsartan [Diovan] 320 mg PO DAILY 12/02/20 [History] Hx Tetanus, Diphtheria Vaccination/Date Given: Yes Hx Influenza Vaccination/Date Given: Yes Hx Pneumococcal Vaccination/Date Given: Yes Immunizations Up to Date: Yes Travel Risk - International Travel Have you traveled outside of the country in past 3 weeks: No - Coronavirus Screening Are you exhibiting any of the following symptoms?: No Close contact with a COVID-19 positive Pt in past 14-21 Days: No - Vaccine Status Have you recieved a Covid-19 vaccination: No 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 - Vaccination Dates Date of 2cond Vaccination (if applicable): 12/13/2020 - Review of Systems Constitutional: No Symptoms, No Fever, No Chills Eyes: No Symptoms Ears, Nose, & Throat: No Symptoms Respiratory: No Symptoms, No Cough, No Dyspnea Cardiac: No Symptoms, No Chest Pain, No Edema, No Syncope Abdominal/Gastrointestinal: No Symptoms, No Abdominal Pain, No Nausea, No Vomiting, No Diarrhea Genitourinary Symptoms: No Symptoms, No Dysuria Musculoskeletal: No Symptoms, No Back Pain, No Neck Pain Skin: No Symptoms, No Rash Neurological: No Symptoms, No Dizziness, No Focal Weakness, No Sensory Changes Psychological: No Symptoms Endocrine: No Symptoms Hematologic/Lymphatic: No Symptoms Immunological/Allergic: No Symptoms All Other Systems: Reviewed and Negative - Past Medical History Pertinent Past Medical History: Yes Neurological History: No Pertinent History ENT History: No Pertinent History Cardiac History: Coronary Artery Disease, High Cholesterol, Hypertension, Myocardial Infarction ([place]) Respiratory History: No Pertinent History Endocrine Medical History: No Pertinent History Musculoskeletal History: Arthritis, Fibromyalgia GI Medical History: No Pertinent History History: No Pertinent History Psycho-Social History: Depression Female Reproductive Disorders: No Pertinent History Other Medical History: 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 - Past Surgical History Past Surgical History: Yes Neuro Surgical History: No Pertinent History Cardiac: CABG, Cardiac Catheterization, Cardiac Stent Respiratory: No Pertinent History Gastrointestinal: Appendectomy Genitourinary: No Pertinent History Musculoskeletal: No Pertinent History Female Surgical History: Hysterectomy, Tubal Ligation Other Surgical History: 4 TOTAL STENTS 2016 - Social History Smoking Status: Current every day smoker How long have you smoked: 50 yrs Exposure to second hand smoke: Yes Drug Use: none Patient Lives Alone: No Significant Family History: no pertinent family hx - Nursing Vital Signs Nursing Vital Signs: Initial Vital Signs O2 Sat by Pulse Oximetry 94 L 01/02/22 15:03 Pain Scale Pain Intensity 0 - Physical Exam General Appearance: no apparent distress, alert Eye Exam: PERRL/EOMI, eyes nml inspection Ears, Nose, Throat Exam: normal ENT inspection, TMs normal, pharynx normal, moist mucous membranes Neck Exam: normal inspection, non-tender, supple, full range of motion Respiratory Exam: normal breath sounds, lungs clear, airway intact, No respiratory distress Cardiovascular Exam: regular rate/rhythm, normal heart sounds, normal peripheral pulses Gastrointestinal/Abdomen Exam: soft, normal bowel sounds, No tenderness, No mass Back Exam: normal inspection, normal range of motion, No CVA tenderness, No vertebral tenderness Extremity Exam: normal inspection, normal range of motion, pelvis stable Neurologic Exam: alert, oriented x 3, cooperative, normal mood/affect, nml cerebellar function, nml station & gait, sensation nml, No motor deficits Skin Exam: normal color, warm, dry, No rash Lymphatic Exam: No adenopathy SpO2 Interpretation: normal SpO2: 98 O2 Delivery: Room Air - Course Nursing assessment & vital signs reviewed: Yes EKG Interpreted by Me: RATE (72), Sinus Rhythm, NORMAL AXIS, Right Bundle Branch Block - Radiology Exams Chest X-ray Interpretation: Interpreted by me (Clear lung barraza, borderline cardiomegaly, sternotomy wires, intact bony thorax) Ordered Tests: Active Orders 24 hr Category Date Time Status Spinner Hand STAT Care 01/02/22 15:50 Completed EKG-ER Only STAT Care 01/02/22 15:49 Completed IV Insertion STAT Care 01/02/22 15:49 Completed Pulse Oximetry (ED) STAT Care 01/02/22 15:49 Completed CHEST 1 VIEW (PORTABLE) Stat Exams 01/02/22 17:24 Taken CBC W DIFF Stat Lab 01/02/22 16:14 Completed CMP Stat Lab 01/02/22 16:14 Completed NT PRO BNP Stat Lab 01/02/22 16:14 Completed PROTIME WITH INR Stat Lab 01/02/22 16:00 Completed PTT Stat Lab 01/02/22 16:00 Completed TROPONIN Q4H Lab 01/02/22 16:14 Completed TROPONIN Q4H Lab 01/02/22 20:25 Received UA W/RFX CULTURE Stat Lab 01/02/22 Ordered Medication Summary Discontinued Medications Generic Name Dose Route Start Last Admin Trade Name Freq PRN Reason Stop Dose Admin Aspirin 324 mg 01/02/22 17:18 01/02/22 18:15 Aspirin 81 Mg Tab.Chew PO 01/02/22 17:19 324 mg STAT ONE Administration Enoxaparin Sodium 80 mg 01/02/22 18:46 01/02/22 20:36 Enoxaparin Sodium 80 Mg/0.8 Ml Syringe SQ 01/02/22 18:47 80 mg STAT ONE Administration Enoxaparin Sodium Confirm 01/02/22 20:36 Enoxaparin Sodium 80 Mg/0.8 Ml Syringe Administered 01/02/22 20:37 Dose 80 mg SQ .STK-MED ONE Heparin Sodium (Beef Lung) Confirm 01/02/22 18:05 Heparin 5000 Units/0.5 Ml 5,000 Unit/0.5 Ml Syr Administered 01/02/22 18:06 Dose 5,000 unit .ROUTE .STK-MED ONE Heparin Sodium (Beef Lung) 5,000 unit 01/02/22 18:11 01/02/22 18:15 Heparin 5000 Units/0.5 Ml 5,000 Unit/0.5 Ml Syr IV 01/02/22 18:12 5,000 unit STAT ONE Administration Sodium Chloride 1,000 mls @ 999 mls/hr 01/02/22 15:49 01/02/22 18:19 Sodium Chloride 0.9% 1000 Ml IV 01/02/22 16:49 Infused .Q1H1M STA Infusion Sodium Chloride Confirm 01/02/22 16:15 Sodium Chloride 0.9% 1000 Ml Administered 01/02/22 16:16 Dose 1,000 mls @ ud .ROUTE .STK-MED ONE Sodium Chloride Confirm 01/02/22 18:05 Sodium Chloride 0.9% 1000 Ml Administered 01/02/22 18:06 Dose 1,000 mls @ ud .ROUTE .STK-MED ONE Heparin Sodium/Dextrose Confirm 01/02/22 18:05 Heparin 25,000 Units/D5w: Use Order Set Carlos Alberto Administered 01/02/22 18:06 Dose 25,000 units in 250 mls @ ud IV .STK-MED ONE Sodium Chloride 1,000 mls @ 50 mls/hr 01/02/22 18:30 01/02/22 18:18 Sodium Chloride 0.9% 1000 Ml IV 02/01/22 18:29 50 mls/hr .Q20H ASHLEY Administration Lab/Rad Data: Laboratory Result Diagrams 01/02/22 16:14 01/02/22 16:14 Laboratory Results 01/02/22 01/02/22 01/02/22 Range/Units 16:14 16:14 16:14 WBC 7.4 (4.0-10.5) x10^3/uL RBC 4.01 L (4.1-5.4) x10^6/uL Hgb 12.7 (12.0-16.0) g/dL Hct 38.0 (35-47) % MCV 94.8 (78-100) fL MCH 31.7 (26-32) pg MCHC 33.4 (32-36) g/dL RDW 13.8 (11.5-14.0) % Plt Count 290 (150-450) x10^3/uL MPV 9.0 (7.5-11.0) fL Gran % 73.5 H (36.0-66.0) % Immature Gran % (Auto) 0.4 (0.00-0.4) % Nucleat RBC Rel Count 0.0 (0.00-0.1) % Eos # (Auto) 0.12 (0-0.5) x10^3/uL Immature Gran # (Auto) 0.03 (0.00-0.03) x10^3u/L Absolute Lymphs (auto) 1.34 (1.0-4.6) x10^3/uL Absolute Monos (auto) 0.41 (0.0-1.3) x10^3/uL Absolute Nucleated RBC 0.00 (0.00-0.01) x10^3u/L Lymphocytes % 18.2 L (24.0-44.0) % Monocytes % 5.6 (0.0-12.0) % Eosinophils % 1.6 (0.00-5.0) % Basophils % 0.7 (0.0-0.4) % Absolute Granulocytes 5.40 (1.4-6.9) x10^3/uL Basophils # 0.05 (0-0.4) x10^3/uL PT (9.4-12.5) SECONDS INR (0.8-3.0) APTT (25.1-36.5) SECONDS Sodium 139 (137-145) mmol/L Potassium 3.6 (3.5-5.1) mmol/L Chloride 105 (98-107) mmol/L Carbon Dioxide 26 (22-30) mmol/L Anion Gap 12.1 (5-15) MEQ/L BUN 22 H (7-17) mg/dL Creatinine 1.19 H (0.52-1.04) mg/dL Estimated GFR 48.2 ML/MIN Glucose 152 H (74-106) mg/dL Calcium 9.5 (8.4-10.2) mg/dL Total Bilirubin 0.40 (0.2-1.3) mg/dL AST 25 (14-36) U/L ALT 24 (0-35) U/L Alkaline Phosphatase 88 (38-126) U/L Troponin I 0.044 H* (0.000-0.034) ng/mL NT-Pro-B Natriuret Pep 613 (0-900) pg/mL Serum Total Protein 6.7 (6.3-8.2) g/dL Albumin 4.3 (3.5-5.0) g/dL 01/02/22 Range/Units 16:00 WBC (4.0-10.5) x10^3/uL RBC (4.1-5.4) x10^6/uL Hgb (12.0-16.0) g/dL Hct (35-47) % MCV (78-100) fL MCH (26-32) pg MCHC (32-36) g/dL RDW (11.5-14.0) % Plt Count (150-450) x10^3/uL MPV (7.5-11.0) fL Gran % (36.0-66.0) % Immature Gran % (Auto) (0.00-0.4) % Nucleat RBC Rel Count (0.00-0.1) % Eos # (Auto) (0-0.5) x10^3/uL Immature Gran # (Auto) (0.00-0.03) x10^3u/L Absolute Lymphs (auto) (1.0-4.6) x10^3/uL Absolute Monos (auto) (0.0-1.3) x10^3/uL Absolute Nucleated RBC (0.00-0.01) x10^3u/L Lymphocytes % (24.0-44.0) % Monocytes % (0.0-12.0) % Eosinophils % (0.00-5.0) % Basophils % (0.0-0.4) % Absolute Granulocytes (1.4-6.9) x10^3/uL Basophils # (0-0.4) x10^3/uL PT 10.9 (9.4-12.5) SECONDS INR 1.03 (0.8-3.0) APTT 26.9 (25.1-36.5) SECONDS Sodium (137-145) mmol/L Potassium (3.5-5.1) mmol/L Chloride (98-107) mmol/L Carbon Dioxide (22-30) mmol/L Anion Gap (5-15) MEQ/L BUN (7-17) mg/dL Creatinine (0.52-1.04) mg/dL Estimated GFR ML/MIN Glucose (74-106) mg/dL Calcium (8.4-10.2) mg/dL Total Bilirubin (0.2-1.3) mg/dL AST (14-36) U/L ALT (0-35) U/L Alkaline Phosphatase (38-126) U/L Troponin I (0.000-0.034) ng/mL NT-Pro-B Natriuret Pep (0-900) pg/mL Serum Total Protein (6.3-8.2) g/dL Albumin (3.5-5.0) g/dL - Progress Progress: improved Progress Note: Case discussed with Dr. Reed partner with who accepts admission to observation. Dr. Reed request that we stop the heparin. He request administration of Lovenox 1 mg/kg. Plan of care discussed with patient. She agrees to transfer to [facility] for further evaluation and treatment. Portions of this note were created with voice recognition technology. There may be grammatical, spelling, punctuation or sound alike errors 01/02/22 18:44 Counseled pt/family regarding: lab results, diagnosis, rad results - Departure Departure Disposition: Transfer Clinical Impression: ACS (acute coronary syndrome), NSTEMI (non-ST elevated myocardial infarction), Elevated troponin Condition: Stable Critical Care Time: No Referrals: SREEDHAR RAY [Primary Care Provider] - Follow up/PCP as directed
[2022-01-02] MEDS ORDERED: Sodium Chloride 0.9% 1000 ML 1,000 ML ONE ×2 (16:15→18:05)
[2022-01-02 16:28] LABS: Basophil (Absolute #) 0.05 x10^3/uL (0-0.4); Eosinophil % 1.6 % (0.00-5.0); Eosinophil (Absolute #) 0.12 x10^3/uL (0-0.5); Hemoglobin 12.7 g/dL (12.0-16.0); Lymphocyte (Absolute #) 1.34 x10^3/uL (1.0-4.6); Lymphocytes % 18.2 % (24.0-44.0); Mean Cell Volume 94.8 fL (78-100); Mean Corpuscular Hemoglobin 31.7 pg (26-32); Mean Corpuscular Hgb Concent. 33.4 g/dL (32-36); Monocyte (Absolute #) 0.41 x10^3/uL (0.0-1.3); Monocytes % 5.6 % (0.0-12.0); Neutrophil % 73.5 % (36.0-66.0); Platelet Count 290 x10^3/uL (150-450); Red Blood Count 4.01 x10^6/uL (4.1-5.4); Red Cell Distribution Width 13.8 % (11.5-14.0); White Blood Count 7.4 x10^3/uL (4.0-10.5)
[2022-01-02 16:45] LABS: ALBUMIN 4.3 g/dL (3.5-5.0); ANION GAP 12.1 MEQ/L (5-15); BILIRUBIN,TOTAL 0.4 mg/dL (0.2-1.3); Calcium 9.5 mg/dL (8.4-10.2); Creatinine 1 1.19 mg/dL (0.52-1.04); EST GLOMERULAR FILTRATION RATE 48.2 ML/MIN; Potassium 3.6 mmol/L (3.5-5.1); Total Protein 6.7 g/dL (6.3-8.2)
[2022-01-02] MEDS ORDERED: BABY ASPIRIN 81 MG CHEW PO ONE (17:18)
[2022-01-02 17:43] LABS: INR 1.03 (0.8-3.0); PROTIME 10.9 SECONDS (9.4-12.5); PTT 26.9 SECONDS (25.1-36.5)
[2022-01-02] MEDS ORDERED: HEPARIN 5000 UNITS/0.5 ML (HIGH RISK MED) ONE (18:05)
[2022-01-02] MEDS ORDERED: Heparin 25,000 units/D5W: USE ORDER SET PROTO 25,000 UNITS/250 ML BAG IV ONE (18:05)
[2022-01-02] MEDS ORDERED: HEPARIN 5000 UNITS/0.5 ML (HIGH RISK MED) IV ONE (18:11)
[2022-01-02] MEDS ORDERED: Sodium Chloride 0.9% 1000 ML 1,000 ML IV SCH (18:30)
[2022-01-02] MEDS ORDERED: ENOXAPARIN SODIUM SQ ONE ×2 (18:46→20:36)
[2022-01-02 20:07] VITALS: BP 136/75; PULSE 77
[2022-01-02 21:05] VITALS: O2SAT 98
--- NOTE | 2022-01-03 08:49 | XRAY ---
Indication: Chest pain, dizziness, and low blood pressure. Comparison: June 28, 2020 Portable chest less inflated and remains clear. Heart not enlarged again with CABG. Bony thorax intact again with osteopenia, degenerative changes, and minimal scoliosis. Impression: Continued nonacute chest with chronic features.
== END 2022-01-02 20:57 | disposition short-term general hospital (02) ==
LOC: ED 15:02
DX: I24.9 Acute ischemic heart disease, unspecified (principal); I21.4 Non-ST elevation (NSTEMI) myocardial infarction; R77.8 Other specified abnormalities of plasma proteins; I95.9 Hypotension, unspecified; R42 Dizziness and giddiness; E78.5 Hyperlipidemia, unspecified; I10 Essential (primary) hypertension; Z72.0 Tobacco use; Z79.899 Other long term (current) drug therapy
CPT/HCPCS: 36415; 71045; 80053; 83880; 84484; 85025; 85610; 85730; 93005; 93041; 94760; 96360; 96372; 96374; 99285; J1644; J1650; A9270-GY

== ENCOUNTER 2022-02-23 21:06 | Emergency (ER) | payer MEDICARE ==
--- NOTE | 2022-02-23 21:09 | ERPHSYRPT ---
- History of Present Illness Time Seen by Provider: 02/23/22 21:09 Source: patient, family Exam Limitations: no limitations Physician History: This is a 66-year-old white female patient Dr. Humphreys who was feeling well until approximately 3 hours prior to arrival when she had sudden onset of shaking chills and generalized achiness. Patient states that she was watching a [place] show on TV when the symptoms suddenly occurred. She has been feeling fine all day. Patient took all of her medications including her blood pressure medication today. She feels nauseated as well. She has not had any vomiting or diarrhea. She has no chest pain. She has no shortness of breath. She has no abdominal pain. Patient smokes cigarettes daily. Patient took her blood pre ssure and her systolic blood pressure at the time of her worst symptoms were was over 200. It remained over 200 even upon entrance into the emergency department. Soon after her systolic blood pressure slowly dropped to the 170s. Patient has a history of hypertension, hyperlipidemia, coronary disease, CABG/cardiac stents, fibromyalgia, depression and TIAs. Patient does see pain specialist for chronic pain issues. Timing/Duration: today, hour(s) (Few hours ago) Severity: moderate Associated Symptoms: nausea, headaches, No vomiting, No abdominal pain, No shortness of breath, No chest pain, No fever Allergies/Adverse Reactions: amoxicillin trihydrate [From Augmentin] Adverse Reaction (Severe, Verified 01/02/22 15:29) Vomiting potassium clavulanate [From Augmentin] Adverse Reaction (Severe, Verified 01/02/22 15:29) Vomiting Home Medications: Atorvastatin Calcium [Lipitor] 80 mg PO DAILY 05/07/18 [History] Furosemide 20 mg [Lasix 20 mg] 20 mg PO DAILY 05/07/18 [History] Nifedipine [Nifedipine ER] 30 mg PO DAILY 03/08/19 [History] Melatonin 10 mg PO HS 06/28/20 [History] Valsartan [Diovan] 320 mg PO DAILY 12/02/20 [History] Hx Tetanus, Diphtheria Vaccination/Date Given: Yes Hx Influenza Vaccination/Date Given: Yes Hx Pneumococcal Vaccination/Date Given: Yes Travel Risk - International Travel Have you traveled outside of the country in past 3 weeks: No - Coronavirus Screening Are you exhibiting any of the following symptoms?: Yes Symptoms: Fever, Cough: New Onset, Headaches/Body Aches/Fatigue - Vaccine Status Have you recieved a Covid-19 vaccination: No Second [employer]er: Pfizer - Vaccination Dates Date of 2cond Vaccination (if applicable): 12/13/2020 - Review of Systems Constitutional: No Symptoms Eyes: No Symptoms Ears, Nose, & Throat: No Symptoms Respiratory: No Symptoms Cardiac: No Symptoms Abdominal/Gastrointestinal: Nausea Genitourinary Symptoms: No Symptoms Musculoskeletal: No Symptoms Skin: No Symptoms Neurological: Headache Psychological: No Symptoms Endocrine: No Symptoms Hematologic/Lymphatic: No Symptoms Immunological/Allergic: No Symptoms All Other Systems: Reviewed and Negative - Past Medical History Pertinent Past Medical History: Yes Neurological History: No Pertinent History ENT History: No Pertinent History Cardiac History: Coronary Artery Disease, High Cholesterol, Hypertension, Myocardial Infarction ([place]) Respiratory History: No Pertinent History Endocrine Medical History: No Pertinent History Musculoskeletal History: Arthritis, Fibromyalgia GI Medical History: No Pertinent History History: No Pertinent History Psycho-Social History: Depression Female Reproductive Disorders: No Pertinent History Other Medical History: 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 - Past Surgical History Past Surgical History: Yes Neuro Surgical History: No Pertinent History Cardiac: CABG, Cardiac Catheterization, Cardiac Stent Respiratory: No Pertinent History Gastrointestinal: Appendectomy Genitourinary: No Pertinent History Musculoskeletal: No Pertinent History Female Surgical History: Hysterectomy, Tubal Ligation Other Surgical History: 4 TOTAL STENTS 2016 - Social History Smoking Status: Current every day smoker How long have you smoked: 50 yrs Exposure to second hand smoke: Yes Drug Use: none Patient Lives Alone: No Significant Family History: no pertinent family hx - Nursing Vital Signs Nursing Vital Signs: Initial Vital Signs Temperature 99.9 F 02/23/22 21:32 Pulse Rate 98 H 02/23/22 21:32 Respiratory Rate 22 02/23/22 21:32 Blood Pressure 215/100 02/23/22 21:32 O2 Sat by Pulse Oximetry 98 02/23/22 21:32 Pain Scale Pain Intensity 0 - Physical Exam General Appearance: mild distress, alert, anxiety Eye Exam: PERRL/EOMI, eyes nml inspection Ears, Nose, Throat Exam: normal ENT inspection, moist mucous membranes Neck Exam: normal inspection, non-tender, supple, full range of motion Respiratory Exam: normal breath sounds, lungs clear, airway intact, No chest tenderness, No respiratory distress Cardiovascular Exam: regular rate/rhythm, normal heart sounds, normal peripheral pulses Gastrointestinal/Abdomen Exam: soft, normal bowel sounds, No tenderness Pelvic Exam: not done Rectal Exam: not done Back Exam: normal inspection, normal range of motion, No CVA tenderness, No vertebral tenderness Extremity Exam: normal inspection, normal range of motion, pelvis stable Neurologic Exam: alert, oriented x 3, cooperative, hoop rolls operator II-XII nml as tested, normal mood/affect, nml cerebellar function, nml station & gait, sensation nml Skin Exam: normal color, warm, dry Lymphatic Exam: No adenopathy SpO2 Interpretation: normal O2 Delivery: Room Air - Course Nursing assessment & vital signs reviewed: Yes Ordered Tests: Active Orders 24 hr Category Date Time Status Dog Track Kennel Manager STAT Care 02/23/22 22:36 Active IV Insertion STAT Care 02/23/22 22:36 Active Pulse Oximetry (ED) STAT Care 02/23/22 22:36 Active BLOOD CULTURE Stat Lab 02/23/22 23:05 Received CBC W DIFF Stat Lab 02/23/22 22:42 Completed CMP Stat Lab 02/23/22 22:42 Completed CULTURE,URINE Stat Lab 02/23/22 22:45 Received Lactic Acid Stat Lab 02/23/22 23:06 Completed UA W/RFX CULTURE Stat Lab 02/23/22 22:45 Completed Medication Summary Generic Name Dose Route Start Last Admin Trade Name Freq PRN Reason Stop Dose Admin Ceftriaxone Sodium/Dextrose 1 g in 50 mls @ 100 mls/hr 02/23/22 23:16 01/29 10/18 23:26 Rocephin 1 Gm-D5w 50 Ml Bag IV 02/23/22 23:45 100 mls/hr STAT STA 100 mls/hr Administration Discontinued Medications Generic Name Dose Route Start Last Admin Trade Name Freq PRN Reason Stop Dose Admin Ceftriaxone Sodium/Dextrose Confirm 02/23/22 23:24 Rocephin 1 Gm-D5w 50 Ml Bag Administered 02/23/22 23:25 Dose 1 g in 50 mls @ ud IV .[facility] ONE Lab/Rad Data: Laboratory Result Diagrams 02/23/22 22:42 02/23/22 22:42 Laboratory Results 02/23/22 02/23/22 02/23/22 Range/Units 23:06 22:45 22:42 WBC (4.0-10.5) x10^3/uL RBC (4.1-5.4) x10^6/uL Hgb (12.0-16.0) g/dL Hct (35-47) % MCV (78-100) fL MCH (26-32) pg MCHC (32-36) g/dL RDW (11.5-14.0) % Plt Count (150-450) x10^3/uL MPV (7.5-11.0) fL Gran % (36.0-66.0) % Immature Gran % (Auto) (0.00-0.4) % Nucleat RBC Rel Count (0.00-0.1) % Eos # (Auto) (0-0.5) x10^3/uL Immature Gran # (Auto) (0.00-0.03) x10^3u/L Absolute Lymphs (auto) (1.0-4.6) x10^3/uL Absolute Monos (auto) (0.0-1.3) x10^3/uL Absolute Nucleated RBC (0.00-0.01) x10^3u/L Lymphocytes % (24.0-44.0) % Monocytes % (0.0-12.0) % Eosinophils % (0.00-5.0) % Basophils % (0.0-0.4) % Absolute Granulocytes (1.4-6.9) x10^3/uL Basophils # (0-0.4) x10^3/uL Sodium 135 L (137-145) mmol/L Potassium 3.6 (3.5-5.1) mmol/L Chloride 104 (98-107) mmol/L Carbon Dioxide 24 (22-30) mmol/L Anion Gap 11.1 (5-15) MEQ/L BUN 15 (7-17) mg/dL Creatinine 0.82 (0.52-1.04) mg/dL Estimated GFR > 60.0 ML/MIN Glucose 77 (74-106) mg/dL Lactic Acid 1.9 (0.4-2.0) Calcium 9.1 (8.4-10.2) mg/dL Total Bilirubin 0.40 (0.2-1.3) mg/dL AST 23 (14-36) U/L ALT 20 (0-35) U/L Alkaline Phosphatase 84 (38-126) U/L Serum Total Protein 7.1 (6.3-8.2) g/dL Albumin 4.4 (3.5-5.0) g/dL Urinalys Dipstick Clnc MAIN LAB Urine Color YELLOW (YELLOW) Urine Appearance CLEAR (CLEAR) Urine pH 6.5 (5-6) Ur Specific Bulan 1.025 (1.005-1.025) POC Urine Protein Conf NEGATIVE (Negative) Urine Ketones NEGATIVE (NEGATIVE) Urine Nitrite NEGATIVE (NEGATIVE) Urine Bilirubin NEGATIVE (NEGATIVE) Urine Urobilinogen 0.2 (0-1) mg/dL Urine Leukocytes TRACE A (NEGATIVE) Urine WBC (Auto) 16-25 A (0-5) /HPF Urine RBC (Auto) 3-5 A (0-2) /HPF U Epithel Cells (Auto) RARE (FEW) /HPF Urine Bacteria (Auto) NONE (NEGATIVE) /HPF Urine RBC SMALL A (0-5) Danie/ul Ur Culture Indicated? YES Urine Glucose NEGATIVE (NEGATIVE) mg/dL Influenza Type A Ag (NEGATIVE) Influenza Type B Ag (NEGATIVE) RSV (PCR) (Negative) SARS-CoV-2 (PCR) (NEGATIVE) Group A Strep Antibody (NEGATIVE) 02/23/22 02/23/22 02/23/22 Range/Units 22:42 22:11 22:11 WBC 7.0 (4.0-10.5) x10^3/uL RBC 4.19 (4.1-5.4) x10^6/uL Hgb 13.2 (12.0-16.0) g/dL Hct 41.4 (35-47) % MCV 98.8 (78-100) fL MCH 31.5 (26-32) pg MCHC 31.9 L (32-36) g/dL RDW 13.1 (11.5-14.0) % Plt Count 231 (150-450) x10^3/uL MPV 9.4 (7.5-11.0) fL Gran % 80.8 H (36.0-66.0) % Immature Gran % (Auto) 0.4 (0.00-0.4) % Nucleat RBC Rel Count 0.0 (0.00-0.1) % Eos # (Auto) 0.20 (0-0.5) x10^3/uL Immature Gran # (Auto) 0.03 (0.00-0.03) x10^3u/L Absolute Lymphs (auto) 0.48 L (1.0-4.6) x10^3/uL Absolute Monos (auto) 0.56 (0.0-1.3) x10^3/uL Absolute Nucleated RBC 0.00 (0.00-0.01) x10^3u/L Lymphocytes % 6.9 L (24.0-44.0) % Monocytes % 8.0 (0.0-12.0) % Eosinophils % 2.9 (0.00-5.0) % Basophils % 1.0 (0.0-0.4) % Absolute Granulocytes 5.66 (1.4-6.9) x10^3/uL Basophils # 0.07 (0-0.4) x10^3/uL Sodium (137-145) mmol/L Potassium (3.5-5.1) mmol/L Chloride (98-107) mmol/L Carbon Dioxide (22-30) mmol/L Anion Gap (5-15) MEQ/L BUN (7-17) mg/dL Creatinine (0.52-1.04) mg/dL Estimated GFR ML/MIN Glucose (74-106) mg/dL Lactic Acid (0.4-2.0) Calcium (8.4-10.2) mg/dL Total Bilirubin (0.2-1.3) mg/dL AST (14-36) U/L ALT (0-35) U/L Alkaline Phosphatase (38-126) U/L Serum Total Protein (6.3-8.2) g/dL Albumin (3.5-5.0) g/dL Urinalys Dipstick Clnc Urine Color (YELLOW) Urine Appearance (CLEAR) Urine pH (5-6) Ur Specific Bulan (1.005-1.025) POC Urine Protein Conf (Negative) Urine Ketones (NEGATIVE) Urine Nitrite (NEGATIVE) Urine Bilirubin (NEGATIVE) Urine Urobilinogen (0-1) mg/dL Urine Leukocytes (NEGATIVE) Urine WBC (Auto) (0-5) /HPF Urine RBC (Auto) (0-2) /HPF U Epithel Cells (Auto) (FEW) /HPF Urine Bacteria (Auto) (NEGATIVE) /HPF Urine RBC (0-5) Danie/ul Ur Culture Indicated? Urine Glucose (NEGATIVE) mg/dL Influenza Type A Ag NEGATIVE (NEGATIVE) Influenza Type B Ag NEGATIVE (NEGATIVE) RSV (PCR) NEGATIVE (Negative) SARS-CoV-2 (PCR) POSITIVE A (NEGATIVE) Group A Strep Antibody NOT DETECTED (NEGATIVE) - Progress Progress: improved Counseled pt/family regarding: lab results, diagnosis - Departure Departure Disposition: Home Clinical Impression: COVID-19 virus infection, Urinary tract infection Condition: Stable Critical Care Time: No Referrals: SREEDHAR HUMPHREYS [Primary Care Provider] - Follow up/PCP as directed Additional Instructions: Drink plenty of clear liquids. Take your antibiotics as prescribed. Follow-up with your primary care doctor for further evaluation and management. Quarantine yourself at home and follow the employers protocol. Forms: Work/School Release Form Prescriptions: Ciprofloxacin [Cipro 500 MG] 500 mg PO BID #14 tablet
[2022-02-23 22:46] LABS: Absolute Neutrophil Ct (ANC) 5.66 x10^3/uL (1.4-6.9); Basophil (Absolute #) 0.07 x10^3/uL (0-0.4); Eosinophil % 2.9 % (0.00-5.0); Hematocrit 41.4 % (35-47); Hemoglobin 13.2 g/dL (12.0-16.0); Lymphocyte (Absolute #) 0.48 x10^3/uL (1.0-4.6); Lymphocytes % 6.9 % (24.0-44.0); Mean Cell Volume 98.8 fL (78-100); Mean Corpuscular Hemoglobin 31.5 pg (26-32); Mean Corpuscular Hgb Concent. 31.9 g/dL (32-36); Mean Platelet Volume 9.4 fL (7.5-11.0); Monocyte (Absolute #) 0.56 x10^3/uL (0.0-1.3); Neutrophil % 80.8 % (36.0-66.0); Platelet Count 231 x10^3/uL (150-450); Red Blood Count 4.19 x10^6/uL (4.1-5.4); Red Cell Distribution Width 13.1 % (11.5-14.0)
[2022-02-23 22:51] LABS: INFLUENZA A NEGATIVE (NEGATIVE); INFLUENZA B NEGATIVE (NEGATIVE); RESPIRATORY SYNCTIAL VIRUS NEGATIVE (Negative)
[2022-02-23 22:52] LABS: Appearance CLEAR (CLEAR); Bilirubin NEGATIVE (NEGATIVE); Glucose NEGATIVE (NEGATIVE); Ketones NEGATIVE (NEGATIVE); Nitrite NEGATIVE (NEGATIVE); Ph 6.5 (5-6); Protein,Urine Dip NEGATIVE (Negative); RBC SMALL Ery/ul (0-5); Specific Gravity 1.025 (1.005-1.025); Urobilinogen 0.2 mg/dL (0-1)
[2022-02-23 22:53] LABS: Dipstick done @ ? MAIN LAB
[2022-02-23 23:05] VITALS: BP 176/92; PULSE 98; O2SAT 98
[2022-02-23 23:07] LABS: SARS-CoV-2 Xpert Express POSITIVE (NEGATIVE)
[2022-02-23 23:09] LABS: Epithelial Cells RARE /HPF (FEW); Urine Cultured Indicated? YES
[2022-02-23] MEDS ORDERED: ROCEPHIN 1 Gm-D5w 50 ml Bag** 1 G/50 ML IVPB IV STA (23:16)
[2022-02-23] MEDS ORDERED: ROCEPHIN 1 Gm-D5w 50 ml Bag** 1 G/50 ML IVPB IV ONE (23:24)
[2022-02-23 23:28] LABS: ALBUMIN 4.4 g/dL (3.5-5.0); ALKALINE PHOSPHATASE 84 U/L (38-126); ANION GAP 11.1 MEQ/L (5-15); BLOOD UREA NITROGEN 15 mg/dL (7-17); CHLORIDE 104 mmol/L (98-107); Calcium 9.1 mg/dL (8.4-10.2); Carbon Dioxide 24 mmol/L (22-30); Creatinine 1 0.82 mg/dL (0.52-1.04); EST GLOMERULAR FILTRATION RATE > 60.0 ML/MIN; Glucose 77 mg/dL (74-106); Potassium 3.6 mmol/L (3.5-5.1); SGOT/AST 23 U/L (14-36); SGPT/ALT 20 U/L (0-35); SODIUM 135 mmol/L (137-145); Total Protein 7.1 g/dL (6.3-8.2)
== END 2022-02-24 00:01 | disposition home or self-care (01) ==
LOC: ED 21:06
DX: U07.1 COVID-19 (principal); N39.0 Urinary tract infection, site not specified; R68.83 Chills (without fever); M79.10 Myalgia, unspecified site; R11.0 Nausea; I10 Essential (primary) hypertension; E78.5 Hyperlipidemia, unspecified; Z72.0 Tobacco use; Z79.899 Other long term (current) drug therapy
CPT/HCPCS: 0241U; 36000; 36415; 80053; 81015; 83605; 85025; 87040; 87086; 87651; 93041; 94760; 96365; 99284; J0696

== ENCOUNTER 2022-07-02 09:34 | Day surgery (SDC) | payer MEDICARE ==
[2022-07-02] MEDS ORDERED: Depo-Medrol 40 MG/ML IM ONE (09:35)
[2022-07-02] MEDS ORDERED: BUPIVACAINE 0.5% VIAL IJ ONE (09:35)
[2022-07-02] MEDS ORDERED: DIPRIVAN 200 MG/20 ML IV ONE (11:42)
--- NOTE | 2022-07-02 13:02 | XRAY ---
Indication: Right SI joint injection. Intraoperative fluoroscopy provided for 10 seconds. 2 digital spot image submitted for interpretation demonstrates posterior needle tip projecting over the right SI joint. Correlate with intraoperative findings/report.
--- NOTE | 2022-07-02 13:04 | XRAY ---
10 seconds of fluoroscopy was used in surgery for a right sacroiliac joint injection.
[2022-07-02] MEDS ORDERED: Lactated Ringers 1,000 ML IV ONE (15:03)
== END 2022-07-02 12:10 | disposition home or self-care (01) ==
LOC: SDC-PAIN 09:34
PROVIDERS: ATTEND Psychiatry & Neurology Pain Medicine
DX: M46.1 Sacroiliitis, not elsewhere classified (principal); Z79.899 Other long term (current) drug therapy
CPT/HCPCS: 27096; 72170; 77002; G0260; J1030; J2704

== ENCOUNTER 2022-07-05 18:33 | Emergency (ER) | payer MEDICARE ==
[2022-07-05 18:54] VITALS: O2SAT 95
[2022-07-05] MEDS ORDERED: ACYCLOVIR PO ONE (19:31)
[2022-07-05] MEDS ORDERED: NEURONTIN PO STA (19:32)
--- NOTE | 2022-07-05 19:36 | ERPHSYRPT ---
- History of Present Illness Time Seen by Provider: 07/05/22 19:33 Source: patient Exam Limitations: no limitations Patient Subjective Stated Complaint: PT states "I have had a headache for the past three days. I feel like my head is tender and I have this rash on the left side of my head." Triage Nursing Assessment: Pt presented alert and oriented X 3, skin pwd. PT has slight swelling noted to left upper eye and forehead, red tender rash noted to left forehead. No apparent respiratory distress. Physician History: Pt c/o COOLEY and painful rash on left forehead. Present for the past day. Doesn't cross midline No fevers, chills, nausea, vomiting, diarrhea, CP, abd pain, vision changes, dizziness or focal weakness. Timing/Duration: yesterday Severity: moderate Character of Deficits: none Deficits: no difficulties Baseline/Normal Cognition: alert oriented x 3 Current Cognition: alert oriented x 3 Baseline Gait: walks w/o assistance Associated Symptoms: headache Allergies/Adverse Reactions: amoxicillin trihydrate [From Augmentin] Adverse Reaction (Severe, Verified 01/02/22 15:29) Vomiting potassium clavulanate [From Augmentin] Adverse Reaction (Severe, Verified 01/02/22 15:29) Vomiting Home Medications: Atorvastatin Calcium [Lipitor] 80 mg PO DAILY 05/07/18 [History] Furosemide 20 mg [Lasix 20 mg] 20 mg PO DAILY 05/07/18 [History] Nifedipine [Nifedipine ER] 30 mg PO DAILY 03/08/19 [History] Melatonin 10 mg PO HS 06/28/20 [History] Valsartan [Diovan] 320 mg PO DAILY 12/02/20 [History] Cholecalciferol (Vitamin D3) [Vitamin D3] 1 cap PO DAILY 07/05/22 [History] Hydrocodone/Acetaminophen [Hydrocodone-Acetamin 10-325 mg] 1 each PO DAILY 07/05/22 [History] Hx Tetanus, Diphtheria Vaccination/Date Given: No Hx Influenza Vaccination/Date Given: No Hx Pneumococcal Vaccination/Date Given: No Immunizations Up to Date: Yes Travel Risk - International Travel Have you traveled outside of the country in past 3 weeks: No - Coronavirus Screening Are you exhibiting any of the following symptoms?: Yes Symptoms: Headaches/Body Aches/Fatigue Close contact with a COVID-19 positive Pt in past 14-21 Days: Yes - Vaccine Status Have you recieved a Covid-19 vaccination: Yes 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 - Vaccination Dates Date of 2cond Vaccination (if applicable): 12/13/2020 - Review of Systems Constitutional: No Symptoms Eyes: No Symptoms Ears, Nose, & Throat: No Symptoms Respiratory: No Symptoms Cardiac: No Symptoms Abdominal/Gastrointestinal: No Symptoms Genitourinary Symptoms: No Symptoms Musculoskeletal: No Symptoms Skin: Rash (Grouped vesicles on an erythematous base confined to a distinct dermatome on left forehead without crossing the midline.) Neurological: Headache, No Dizziness, No Focal Weakness, No Parasthesia, No Seizure, No Sensory Changes, No Speech Changes Psychological: No Symptoms Endocrine: No Symptoms Hematologic/Lymphatic: No Symptoms Immunological/Allergic: No Symptoms All Other Systems: Reviewed and Negative - Past Medical History Pertinent Past Medical History: Yes Neurological History: No Pertinent History ENT History: No Pertinent History Cardiac History: Coronary Artery Disease, High Cholesterol, Hypertension, Myocardial Infarction ([place]) Respiratory History: No Pertinent History Endocrine Medical History: No Pertinent History Musculoskeletal History: Arthritis, Fibromyalgia GI Medical History: No Pertinent History History: No Pertinent History Psycho-Social History: Depression Female Reproductive Disorders: No Pertinent History Other Medical History: 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 - Past Surgical History Past Surgical History: Yes Neuro Surgical History: No Pertinent History Cardiac: CABG, Cardiac Catheterization, Cardiac Stent Respiratory: No Pertinent History Gastrointestinal: Appendectomy Genitourinary: No Pertinent History Musculoskeletal: No Pertinent History Female Surgical History: Hysterectomy, Tubal Ligation Other Surgical History: 4 TOTAL STENTS 2016 - Social History Smoking Status: Current every day smoker How long have you smoked: 50 yrs Exposure to second hand smoke: Yes Drug Use: none Patient Lives Alone: No Significant Family History: no pertinent family hx - Nursing Vital Signs Nursing Vital Signs: Initial Vital Signs Temperature 98.7 F 07/05/22 18:48 Pulse Rate 71 07/05/22 18:48 Respiratory Rate 18 07/05/22 18:48 Blood Pressure 189/78 07/05/22 18:48 O2 Sat by Pulse Oximetry 95 07/05/22 18:48 Pain Scale Pain Intensity 5 - [place] Coma Scale Best Eye Response ([place]): (4) open spontaneously Best Verbal Response ([place]): (5) oriented Best Motor Response ([place]): (6) obeys commands [place] Total: 15 - Physical Exam Eye Exam: bilateral eye: normal inspection, PERRL, EOMI Ears, Nose, Throat Exam: normal ENT inspection Neck Exam: normal inspection, non-tender, supple, full range of motion Respiratory: normal breath sounds, lungs clear, airway intact, No respiratory distress Cardiovascular: regular rate/rhythm, normal heart sounds, capillary refill <2 sec, No edema Gastrointestinal: soft, normal bowel sounds, No tenderness Back Exam: normal inspection Extremity Exam: normal inspection, normal range of motion, No calf tenderness, No swelling 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, oriented x 3, 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 Exam: normal hearing, normal speech, PERRL, tongue midline Coordination/Gait: normal gait, normal cerebellar function Motor/Sensory: no motor deficit, no sensory deficit, no pronator drift Skin Exam: rash (Grouped vesicles on an erythematous base confined to a distinct dermatome on left forehead without crossing the midline.) SpO2 Interpretation: normal SpO2: 95 O2 Delivery: Room Air - Course Nursing assessment & vital signs reviewed: Yes Ordered Tests: Medication Summary Discontinued Medications Generic Name Dose Route Start Last Admin Trade Name Taisha PRN Reason Stop Dose Admin Acyclovir 1,000 mg 07/05/22 19:31 07/05/22 19:57 Acyclovir 200 Mg Capsule PO 07/05/22 19:32 1,000 mg STAT ONE Administration Acyclovir Confirm 07/05/22 19:55 Acyclovir 200 Mg Capsule Administered 07/05/22 19:56 Dose 1,000 mg .ROUTE .STK-MED ONE Gabapentin 300 mg 07/05/22 19:32 07/05/22 19:59 Gabapentin 300 Mg Capsule PO 07/05/22 19:33 300 mg ONCE STA Administration Gabapentin 300 mg 07/05/22 22:00 07/05/22 20:00 Gabapentin 300 Mg Capsule PO 08/04/22 21:59 300 mg TID ASHLEY Administration Gabapentin 300 mg 07/06/22 10:00 07/05/22 20:03 Gabapentin 300 Mg Capsule PO 08/05/22 09:59 300 mg DAILY ASHLEY Administration Gabapentin Confirm 07/05/22 19:57 Gabapentin 300 Mg Capsule Administered 07/05/22 19:58 Dose 900 mg .ROUTE .STK-MED ONE - Progress Progress: unchanged Progress Note: Herpes zoster Immunocompetent pt. Moderate pain. Start po antiviral (valacyclovir 1g [id number]). Prn Gabapentin Counseled pt/family regarding: diagnosis Medical Desision Making - Diagnostic Testing Diagnostic test were ordered, analyzed, and reviewed by me: No - Risk of complications The pt has a mod risk of morbidity or mortality based on: Need for prescription drug management - Departure Departure Disposition: Home Clinical Impression: Shingles Condition: Good Critical Care Time: No Referrals: VINEET KAYE [Primary Care Provider] - Follow up/PCP as directed Instructions: Shingles (DC) Prescriptions: Gabapentin 300 mg PO TID PRN 7 Days #21 cap PRN Reason: Pain Valacyclovir HCl [Valtrex] 1,000 mg PO TID 7 Days #21 tablet
[2022-07-05] MEDS ORDERED: ACYCLOVIR ONE (19:55)
[2022-07-05] MEDS ORDERED: NEURONTIN ONE (19:57)
[2022-07-05 20:13] VITALS: BP 189/96; PULSE 66
[2022-07-05] MEDS ORDERED: NEURONTIN PO SCH (22:00)
[2022-07-06] MEDS ORDERED: NEURONTIN PO SCH (10:00)
== END 2022-07-05 20:13 | disposition home or self-care (01) ==
LOC: ED 18:33
DX: B02.9 Zoster without complications (principal); R51.9 Headache, unspecified; E78.5 Hyperlipidemia, unspecified; I10 Essential (primary) hypertension; Z79.891 Long term (current) use of opiate analgesic; Z79.899 Other long term (current) drug therapy; Z72.0 Tobacco use
CPT/HCPCS: 99282; A9270-GY

== ENCOUNTER 2022-08-14 13:33 | Emergency (ER) | payer MEDICARE ==
--- NOTE | 2022-08-14 14:32 | ERPHSYRPT ---
- History of Present Illness Time Seen by Provider: 08/14/22 14:28 Source: patient Exam Limitations: no limitations Patient Subjective Stated Complaint: pt states she was outside [facility] Triage Nursing Assessment: pt alert, walked in resp easy, skin w.d.p, no bruising or abrasions noted Physician History: Patient is a 67-year-old female presents to our ED with complaints of right rib pain. Patient's was outdoors at her home this afternoon when she tripped on old box bring in mattress. Patient fell and injured her right ribs. Pain described as an ache that is localized. No radiation. No associated symptoms. Pain worse with palpation. Pain improved with rest. No BHT or LOC. No neck pain. Cervical spine cleared clinically. Patient voices no other complaints or co ncerns at this time. The fall was not associated with any neuro or cardiovascular symptomology. No associated chest pain or shortness of breath. No associated nausea vomiting or diaphoresis. Patient voices no other complaints or concerns at this time. Portions of this note were created with voice recognition technology. There may be grammatical, spelling, punctuation or sound alike errors Timing/Duration: today Severity: mild Modifying Factors: Improves With: nothing Associated Symptoms: denies symptoms Allergies/Adverse Reactions: amoxicillin trihydrate [From Augmentin] Adverse Reaction (Severe, Verified 08/14/22 13:44) Vomiting potassium clavulanate [From Augmentin] Adverse Reaction (Severe, Verified 08/14/22 13:44) Vomiting Home Medications: Atorvastatin Calcium [Lipitor] 80 mg PO DAILY 05/07/18 [History] Furosemide 20 mg [Lasix 20 mg] 20 mg PO DAILY 05/07/18 [History] Nifedipine [Nifedipine ER] 30 mg PO DAILY 03/08/19 [History] Melatonin 10 mg PO HS 06/28/20 [History] Valsartan [Diovan] 320 mg PO DAILY 12/02/20 [History] Cholecalciferol (Vitamin D3) [Vitamin D3] 1 cap PO DAILY 07/05/22 [History] Hydrocodone/Acetaminophen [Hydrocodone-Acetamin 10-325 mg] 1 each PO DAILY 07/05/22 [History] Hx Tetanus, Diphtheria Vaccination/Date Given: No Hx Influenza Vaccination/Date Given: No Hx Pneumococcal Vaccination/Date Given: No Travel Risk - International Travel Have you traveled outside of the country in past 3 weeks: No - Coronavirus Screening Are you exhibiting any of the following symptoms?: No - Vaccine Status Have you recieved a Covid-19 vaccination: Yes 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 - Vaccination Dates Date of 2cond Vaccination (if applicable): 12/13/2020 - Review of Systems Constitutional: No Symptoms, No Fever, No Chills Eyes: No Symptoms Ears, Nose, & Throat: No Symptoms Respiratory: No Symptoms, No Cough, No Dyspnea Cardiac: No Symptoms, No Chest Pain, No Edema, No Syncope Abdominal/Gastrointestinal: No Symptoms, No Abdominal Pain, No Nausea, No Vom iting, No Diarrhea Genitourinary Symptoms: No Symptoms, No Dysuria Musculoskeletal: No Symptoms, No Back Pain, No Neck Pain Skin: No Symptoms, No Rash Neurological: No Symptoms, No Dizziness, No Focal Weakness, No Sensory Changes Psychological: No Symptoms Endocrine: No Symptoms Hematologic/Lymphatic: No Symptoms Immunological/Allergic: No Symptoms All Other Systems: Reviewed and Negative - Past Medical History Pertinent Past Medical History: Yes Neurological History: No Pertinent History ENT History: No Pertinent History Cardiac History: Coronary Artery Disease, High Cholesterol, Hypertension, Myocardial Infarction ([place]) Respiratory History: No Pertinent History Endocrine Medical History: No Pertinent History Musculoskeletal History: Arthritis, Fibromyalgia GI Medical History: No Pertinent History History: No Pertinent History Psycho-Social History: Depression Female Reproductive Disorders: No Pertinent History Other Medical History: 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 - Past Surgical History Past Surgical History: Yes Neuro Surgical History: No Pertinent History Cardiac: CABG, Cardiac Catheterization, Cardiac Stent Respiratory: No Pertinent History Gastrointestinal: Appendectomy Genitourinary: No Pertinent History Musculoskeletal: No Pertinent History Female Surgical History: Hysterectomy, Tubal Ligation Other Surgical History: 4 TOTAL STENTS 2016 - Social History Smoking Status: Current every day smoker How long have you smoked: 50 yrs Exposure to second hand smoke: Yes Drug Use: none Patient Lives Alone: No Significant Family History: no pertinent family hx - Nursing Vital Signs Nursing Vital Signs: Initial Vital Signs Temperature 97.0 F 08/14/22 13:48 Pulse Rate 59 L 08/14/22 13:48 Respiratory Rate 18 08/14/22 13:48 Blood Pressure 107/52 08/14/22 13:48 O2 Sat by Pulse Oximetry 98 08/14/22 13:48 Pain Scale Pain Intensity 6 - Physical Exam General Appearance: no apparent distress, alert Eye Exam: PERRL/EOMI, eyes nml inspection Ears, Nose, Throat Exam: normal ENT inspection, pharynx normal, moist mucous membranes Neck Exam: normal inspection, full range of motion Respiratory Exam: normal breath sounds, lungs clear, airway intact, No respiratory distress Cardiovascular Exam: regular rate/rhythm, normal heart sounds, normal peripheral pulses Gastrointestinal/Abdomen Exam: soft, normal bowel sounds, other (Some tenderness to palpation of the right rib. Overlying soft tissue intact. No signs of trauma. No open or draining lesions.), No tenderness, No mass Back Exam: normal inspection, normal range of motion, No CVA tenderness, No vertebral tenderness Extremity Exam: normal inspection, normal range of motion, pelvis stable Neurologic Exam: alert, oriented x 3, cooperative, normal mood/affect, sensation nml, No motor deficits Skin Exam: normal color, warm, dry, No rash Lymphatic Exam: No adenopathy SpO2 Interpretation: normal SpO2: 98 O2 Delivery: Room Air - Course Nursing assessment & vital signs reviewed: Yes - Radiology Exams Ribs X-ray Interpretation: Interpreted by me (No fracture dislocations. Osteopenia, mild to moderate degenerative changes throughout the spine mild acromioclavicular degenerative changes mild dextroscoliosis centered at T8, bilateral carotid calcifications and CABG.) Ordered Tests: Active Orders 24 hr Category Date Time Status RIBS UNILATERAL Stat Exams 08/14/22 14:15 Taken - Progress Progress: improved Progress Note: Patient is a 67-year-old female presents to our ED with right rib pain. Patient tripped and fell over a box [employer] mattress. Patient has pain to the right anterolateral ribs. No right upper quadrant pain or tenderness. No pain anywhere near the liver. Pain is over the ribs only. X-ray ribs negative for fracture dislocation. Patient reassessed she is resting comfortably. Patient experiences pain with movement. Pain improved with rest. Patient denies loss of consciousness. No BHT or LOC. No neck pain. Cervical spine cleared clinically. Patient is on a pain contract. Patient declined home pain meds. Patient received Toradol in our ED. Patient understands that x-rays are good however they are not perfect. It is possible that a small fracture can be missed. Patient understands that if pain continues or worsens over the next several days patient is to return to our ED or see your family doctor for reimaging. Complexity of problem addressed is low acute uncomplicated No critical care time Complexity of data reviewed and analyzed is moderate. Testing ordered and testing reviewed. Dr. Florez reviewed the chest x-ray images. I agree with Dr. Arthur's findings. Chronic changes no acute fracture. Risk of complication and or risk morbidity/mortality of patient management is low. We will discharge home. Patient agrees to follow-up with her primary care doctor within 48 hours for evaluation. No social determinants of health present to impede follow-up. Patient voices no other complaints or concerns at this time. Portions of this note were created with voice recognition technology. There may be grammatical, spelling, punctuation or sound alike errors 08/14/22 15:36 Counseled pt/family regarding: diagnosis, need for follow-up, rad results - Departure Departure Disposition: Home Clinical Impression: Fall, Rib contusion Condition: Stable Critical Care Time: No Referrals: VINEET KAYE [Primary Care Provider] - Follow up/PCP as directed Additional Instructions: Discharge/Care Plan MAKSIMJOVANY STERLING was seen on 08/14/22 in the Emergency Room. The patient was counseled regarding Diagnosis,Lab results, Imaging studies, need for follow up and when to return to the Emergency Room. Prescriptions given: Discharge Note I have spoken with the patient and/or caregivers. I have explained the patient's condition, diagnosis and treatment plan based on the information available to me at this time. I have answered the patient's and/or caregiver's questions and addressed any concerns. The patient and/or caregivers have as good understanding of the patient's diagnosis, condition and treatment plan as can be expected at this point. The vital signs have been stable. The patient's condition is stable and appropriate for discharge from the emergency department. The patient will pursue further outpatient evaluation with the primary care physician or other designated or consulting physician as outlined in the discharge instructions. The patient and/or caregivers are agreeable to this plan of care and follow-up instructions have been explained in detail. The patient and/or caregivers have received these instruction. The patient/and or caregivers are aware that any significant change in condition or worsening of symptoms should prompt an immediate return to this or the closest emergency department or call 911.
[2022-08-14 15:11] VITALS: BP 111/61
[2022-08-14] MEDS ORDERED: TORAdol 30 mg Injection IM ONE (15:34)
[2022-08-14] MEDS ORDERED: TORAdol 30 mg Injection ONE (15:46)
[2022-08-14 15:51] VITALS: PULSE 60; O2SAT 96
--- NOTE | 2022-08-14 17:32 | XRAY ---
Indication: Pain following fall. Comparison: None 2 view right ribs demonstrates osteopenia, mild/moderate degenerative changes throughout spine, mild acromioclavicular degenerative changes, mild dextroscoliosis centered at T8, mild bilateral carotid calcifications, and CABG. No other bony, articular, or soft tissue abnormalities.
== END 2022-08-14 15:58 | disposition home or self-care (01) ==
LOC: ED 13:33
DX: S20.211A Contusion of right front wall of thorax, initial encounter (principal); W01.0XXA Fall on same level from slipping, tripping and stumbling without subsequent striking against object, initial encounter; Y92.007 Garden or yard of unspecified non-institutional (private) residence as the place of occurrence of the external cause; E78.5 Hyperlipidemia, unspecified; I10 Essential (primary) hypertension; Z79.891 Long term (current) use of opiate analgesic; Z79.899 Other long term (current) drug therapy; Z72.0 Tobacco use
CPT/HCPCS: 71100; 96372; 99283; J1885

== ENCOUNTER 2022-10-01 09:30 | Day surgery (SDC) | payer MEDICARE ==
[2022-10-01] MEDS ORDERED: BUPIVACAINE 0.5% VIAL IJ ONE (09:31)
[2022-10-01] MEDS ORDERED: Depo-Medrol 40 MG/ML IM ONE (09:31)
[2022-10-01] MEDS ORDERED: DIPRIVAN 200 MG/20 ML IV ONE (10:51)
[2022-10-01] MEDS ORDERED: Lactated Ringers 1,000 ML IV ONE (11:13)
--- NOTE | 2022-10-01 11:54 | XRAY ---
Indication: Right hip and greater trochanter bursa injection. Intraoperative fluoroscopy provided for 29 seconds. 3 digital spot image submitted for interpretation demonstrates needle tip projecting lateral to the right femur neck and right greater trochanter cancer. Small amount of contrast injected for both needle tip placement. Correlate with intraoperative findings/report.
--- NOTE | 2022-10-01 13:02 | XRAY ---
29 seconds of fluoroscopy was used in surgery for a right intra-articular hip and greater trochanteric bursa injection.
== END 2022-10-01 11:23 | disposition home or self-care (01) ==
LOC: SDC-PAIN 09:30
PROVIDERS: ATTEND Psychiatry & Neurology Pain Medicine
DX: M16.11 Unilateral primary osteoarthritis, right hip (principal); Z79.899 Other long term (current) drug therapy
CPT/HCPCS: 20610; 73501; 77002; J1030; J2704; Q9966

== ENCOUNTER 2022-11-11 09:31 | Day surgery (SDC) | payer MEDICARE ==
[~2022-11-11 09:31] MED LIST: Ak-Dilate OPHTHALMIC*** 1.065 ML, Cyclogyl 1% OPHTH SOL 1.065 ML, GATIFLOXACIN 0.5% OPH... OP ONE; BETADINE 5% OPHTHALMIC 30 ML OP ONE; Lactated Ringers 1,000 ML IV SCH; NON-FORMULARY ITEM OP ONE; TETRACAINE 0.5% STERI-UNIT SOL OP ONE; cefUROXime sodium 0.005 GM in Sodium Chloride Flush 30 ML*** 0.5 ML IJ ONE
[2022-11-11] MEDS ORDERED: Lactated Ringers 1,000 ML IV ONE (10:17)
[2022-11-11 10:33] VITALS: RESP 16
[2022-11-11] MEDS ORDERED: ACETAZOLAMIDE 250 MG TABLET PO ONE (11:00)
[2022-11-11] MEDS ORDERED: Zofran 4 MG/2 ML VIAL IV PRN (11:00)
[2022-11-11] MEDS ORDERED: DIPRIVAN 200 MG/20 ML IV ONE (12:06)
[2022-11-11] MEDS ORDERED: Versed 2 MG/2 ML Injection ONE (12:20)
[2022-11-11] MEDS ORDERED: SUBLIMAZE 100 MCG/2 ML ONE (12:20)
[2022-11-11 12:51] VITALS: BP 124/83; PULSE 71; TEMP 97.5; O2SAT 97
[2022-11-11] MEDS ORDERED: Epinephrine Preservative Free 1 MG/ML ONE (15:12)
== END 2022-11-11 12:54 | disposition home or self-care (01) ==
LOC: SDC 09:31
PROVIDERS: ATTEND Ophthalmology
DX: H25.811 Combined forms of age-related cataract, right eye (principal)
CPT/HCPCS: 93005; C1780; J0171; J2250; J2704; J3010; A9270-GY

== ENCOUNTER 2022-11-19 12:10 | Day surgery (SDC) | payer MEDICARE ==
[2022-11-19] MEDS ORDERED: Depo-Medrol 40 MG/ML IM ONE (12:11)
[2022-11-19] MEDS ORDERED: BUPIVACAINE 0.5% VIAL IJ ONE (12:11)
[2022-11-19] MEDS ORDERED: DIPRIVAN 200 MG/20 ML IV ONE (14:00)
[2022-11-19] MEDS ORDERED: Lactated Ringers 1,000 ML IV ONE (14:34)
--- NOTE | 2022-11-19 15:09 | XRAY ---
Indication: Left hip and greater trochanter bursa injection. Intraoperative fluoroscopy provided for 16 seconds. 2 digital spot image submitted for interpretation demonstrates needle tip projecting lateral to left femur neck. Second needle tip lateral to greater trochanter. Small amount of contrast injected for both needle tip placement. Correlate with intraoperative findings/report.
--- NOTE | 2022-11-19 17:34 | XRAY ---
16 seconds of fluoroscopy was used in surgery for a left intra-articular hip and greater trochanteric bursa injection.
== END 2022-11-19 14:30 | disposition home or self-care (01) ==
LOC: SDC-PAIN 12:10
PROVIDERS: ATTEND Psychiatry & Neurology Pain Medicine
DX: M16.12 Unilateral primary osteoarthritis, left hip (principal); Z79.899 Other long term (current) drug therapy
CPT/HCPCS: 20610; 73502; 77002; J1030; J2704; Q9966

== ENCOUNTER 2022-12-07 01:16 | Emergency (ER) | payer MEDICARE ==
[2022-12-07 01:32] VITALS: TEMP 97
[2022-12-07] MEDS ORDERED: TORAdol 30 mg Injection IM ONE (01:34)
[2022-12-07] MEDS ORDERED: TORAdol 30 mg Injection ONE (01:35)
--- NOTE | 2022-12-07 01:39 | ERPHSYRPT ---
- History of Present Illness Time Seen by Provider: 12/07/22 01:36 Source: patient Exam Limitations: no limitations Patient Subjective Stated Complaint: pt states that she was feeding animals and tripped and pinned her arm in between the bucket and ground Triage Nursing Assessment: pt ambulated into the er; pt is axo x4; c/o rt hand pain; skin PDW; strong rt radial pulse; good cap refill to rt hand; swelling present to the dorsal side of rt hand; no abrasions noted; no discoloration noted; no respiratory distress present; hypertensive Physician History: pt states that she was feeding animals and tripped and pinned her arm in between the bucket and ground Occurred: just prior to arrival Method of Injury: direct blow Quality: constant Severity of Pain-Max: mild Severity of Pain-Current: mild Extremities Pain Location: hand: right Modifying Factors: Improves With: cold therapy Associated Symptoms: none Body Map: 1 - area of pain Allergies/Adverse Reactions: potassium clavulanate [From Augmentin] Adverse Reaction (Severe, Verified 12/07/22 01:20) Vomiting Home Medications: Atorvastatin Calcium [Lipitor] 80 mg PO DAILY 05/07/18 [History] Furosemide 20 mg [Lasix 20 mg] 20 mg PO DAILY 05/07/18 [History] NIFEdipine [Nifedipine ER] 30 mg PO DAILY 03/08/19 [History] Melatonin 10 mg PO HS 06/28/20 [History] Valsartan [Diovan] 320 mg PO DAILY 12/02/20 [History] Cholecalciferol (Vitamin D3) [Vitamin D3] 1 cap PO DAILY 07/05/22 [History] Hydrocodone/Acetaminophen [Hydrocodone-Acetamin 10-325 mg] 1 each PO DAILY 07/05/22 [History] Hx Tetanus, Diphtheria Vaccination/Date Given: Yes Hx Influenza Vaccination/Date Given: No Hx Pneumococcal Vaccination/Date Given: No Travel Risk - International Travel Have you traveled outside of the country in past 3 weeks: No - Coronavirus Screening Are you exhibiting any of the following symptoms?: No Close contact with a COVID-19 positive Pt in past 14-21 Days: No - Vaccine Status Have you recieved a Covid-19 vaccination: Yes 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 - Vaccination Dates Date of 2cond Vaccination (if applicable): 12/13/2020 - Review of Systems Constitutional: No Symptoms Eyes: No Symptoms Ears, Nose, & Throat: No Symptoms Respiratory: No Symptoms Cardiac: No Symptoms Abdominal/Gastrointestinal: No Symptoms Genitourinary Symptoms: No Symptoms Musculoskeletal: Joint Swelling Skin: No Symptoms Neurological: No Symptoms - Past Medical History Pertinent Past Medical History: Yes Neurological History: Stroke ENT History: No Pertinent History Cardiac History: Coronary Artery Disease, High Cholesterol, Hypertension, Myocardial Infarction ([place]) Respiratory History: No Pertinent History Endocrine Medical History: No Pertinent History Musculoskeletal History: Arthritis, Fibromyalgia GI Medical History: No Pertinent History History: No Pertinent History Psycho-Social History: Depression Female Reproductive Disorders: No Pertinent History Other Medical History: 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 - Past Surgical History Past Surgical History: Yes Neuro Surgical History: No Pertinent History Cardiac: CABG, Cardiac Catheterization, Cardiac Stent Respiratory: No Pertinent History Gastrointestinal: Appendectomy Genitourinary: No Pertinent History Musculoskeletal: No Pertinent History Female Surgical History: Hysterectomy, Tubal Ligation Other Surgical History: 4 TOTAL STENTS 2016 - Social History Smoking Status: Current some day smoker How long have you smoked: 55 years Exposure to second hand smoke: Yes Drug Use: none Patient Lives Alone: No Significant Family History: no pertinent family hx - Nursing Vital Signs Nursing Vital Signs: Initial Vital Signs Temperature 97 F 12/07/22 01:22 Pulse Rate 71 12/07/22 01:22 Respiratory Rate 18 12/07/22 01:22 Blood Pressure 149/81 12/07/22 01:22 O2 Sat by Pulse Oximetry 97 12/07/22 01:22 Pain Scale Pain Intensity 9 - Physical Exam General Appearance: no apparent distress Eyes, Ears, Nose, Throat Exam: normal ENT inspection Neck Exam: normal inspection Shoulder Exam: normal inspection Elbow/Forearm Exam: normal inspection Wrist Exam: normal inspection Hand Exam: normal inspection, soft tissue tenderness SpO2: 97 - Course Nursing assessment & vital signs reviewed: Yes - Radiology Exams Hand X-ray Interpretation: Reviewed by me, Negative, No Fracture Ordered Tests: Active Orders 24 hr Category Date Time Status HAND (MINIMUM 3 VIEWS) Stat Exams 12/07/22 01:22 Ordered Medication Summary Discontinued Medications Generic Name Dose Route Start Last Admin Trade Name Taisha PRN Reason Stop Dose Admin Ketorolac Tromethamine 60 mg 12/07/22 01:34 Ketorolac Tromethamine 30 Mg/Ml Inj IM 12/07/22 01:35 STAT ONE - Progress Progress: improved, pain not gone completely Counseled pt/family regarding: diagnosis, need for follow-up, rad results Medical Desision Making - Diagnostic Testing Diagnostic test were ordered, analyzed, and reviewed by me: Yes Radiological Interpretation: Reviewed by me - Risk of complications Minimal Risk: Minimal risk of morbidity - Departure Departure Disposition: Home Clinical Impression: Right hand pain Condition: Stable Critical Care Time: No Referrals: VINEET KAYE [Primary Care Provider] - Follow up/PCP as directed Instructions: Hand Pain (DC) Additional Instructions: Discharge/Care Plan JOVANY SCHAEFFER was seen on 12/07/22 in the Emergency Room. The patient was counseled regarding Diagnosis,Lab results, Imaging studies, need for follow up and when to return to the Emergency Room. Prescriptions given: Discharge Note I have spoken with the patient and/or caregivers. I have explained the patient's condition, diagnosis and treatment plan based on the information available to me at this time. I have answered the patient's and/or caregiver's questions and addressed any concerns. The patient and/or caregivers have as good understanding of the patient's diagnosis, condition and treatment plan as can be expected at this point. The vital signs have been stable. The patient's condition is stable and appropriate for discharge from the emergency department. The patient will pursue further outpatient evaluation with the primary care physician or other designated or consulting physician as outlined in the discharge instructions. The patient and/or caregivers are agreeable to this plan of care and follow-up instructions have been explained in detail. The patient and/or caregivers have received these instruction. The patient/and or caregivers are aware that any significant change in condition or worsening of symptoms should prompt an immediate return to this or the closest emergency department or call 911. JOVANY SCHAEFFER was seen on 12/07/22 n the Emergency Room. At that time you were treated for an emergent condition, during your visit Laboratory, Radiology and/or other procedures may have been ordered. It is very important that you follow-up with your Primary Care Physician VINEET KAYE within the next 24-48 hours to review your Emergency Room visit and the final results of testing that was ordered. Some test results such as Urine Cultures, Blood Cultures, and other cultures if ordered will not be finalized for 24-48 hours. If you do not have a Primary Care Provider please call the medical records department at [phone] ext [phone] to obtain a copy of your results or you may sign into our patient portal to obtain these results by visiting us @ [email or web address] and completing the following steps: 1. Click on the Patient Portal link 2. Click the Patient Self Enrollment Link to complete the enrollment form and entering your 3. Once the enrollment form is completed you will receive an email with a temporary ID and password at the email address you provided. 4. Next choose a user name and password. Your user name must be at least 4 characters long and your password must be at least 4 characters long. 5. Choose a security question from the list and provide your answer to the question. If you already have signed into the Health Portal you may access your Health Care Information 20/10 by the following steps: 1. Login to our website @ [email or web address] 2. Enter your original user name and password. FAQS The [facility] Health Portal is an online tool that contains your Lab Results, Radiology Reports, Visit History, Discharge Instructions and Health Summary Lab and Radiology Results will not be available for 72 hours on the portal. The Portal is a secure site, passwords are encryted and URLs are re-written so they cannot be copied and pasted. You and authorized family members are the only ones who can access your Portal. Also there is a timeout feature that protects your information if you leave the Portal page open. If you have technical difficulty please use the Contact Us link on the page this will allow you to submit any questions you have regarding the Portal or you may contact the Medical Record Department at [phone] ext [phone].
[2022-12-07 01:51] VITALS: BP 121/70; PULSE 66; RESP 16; O2SAT 96
--- NOTE | 2022-12-07 08:00 | XRAY ---
Indication: Pain following fall. Comparison: None 3 view right hand demonstrates osteopenia, mild degenerative changes all IP joints, and moderate 1st metacarpal multangular degenerative changes. No other bony, articular, or soft tissue abnormalities.
== END 2022-12-07 01:53 | disposition home or self-care (01) ==
LOC: ED 01:16
DX: M79.641 Pain in right hand (principal); E78.5 Hyperlipidemia, unspecified; I10 Essential (primary) hypertension; Z79.899 Other long term (current) drug therapy; Z72.0 Tobacco use
CPT/HCPCS: 73130; 96372; 99283; J1885

== ENCOUNTER 2023-07-08 07:59 | Day surgery (SDC) | payer MEDICARE ==
[2023-07-08] MEDS ORDERED: Depo-Medrol 40 MG/ML IM ONE (08:00)
[2023-07-08] MEDS ORDERED: BUPIVACAINE 0.5% VIAL IJ ONE (08:00)
[2023-07-08] MEDS ORDERED: DIPRIVAN 200 MG/20 ML IV ONE (09:31)
[2023-07-08] MEDS ORDERED: Lactated Ringers 1,000 ML IV ONE (09:43)
--- NOTE | 2023-07-08 10:59 | XRAY ---
57 seconds of fluoroscopy was used in surgery for bilateral SI joint injections and bilateral intra-articular hip injections.
--- NOTE | 2023-07-08 11:00 | XRAY ---
Indication: Bilateral SI joints and bilateral hip injection. Intraoperative fluoroscopy provided for 57 seconds. 6 digital spot images submitted for interpretation demonstrates posterior needle tips projecting over left and right SI joint. Additional needle tips lateral to left/right femur necks. Small amount of contrast injected for all needle tip placement. Correlate with intraoperative findings/report.
== END 2023-07-08 10:05 | disposition home or self-care (01) ==
LOC: SDC-PAIN 07:59
PROVIDERS: ATTEND Psychiatry & Neurology Pain Medicine
DX: M16.0 Bilateral primary osteoarthritis of hip (principal); M46.1 Sacroiliitis, not elsewhere classified
CPT/HCPCS: 01992; 20610; 27096; 73522; 77002; G0260; J1010; J2704; Q9966

== ENCOUNTER 2023-08-19 14:06 | Emergency (ER) | payer MEDICARE ==
[2023-08-19 14:28] VITALS: BP 122/68; PULSE 72; RESP 18; TEMP 97.1
[2023-08-19] MEDS ORDERED: HIBICLENS 4% Scrub TOP ONE (14:30)
[2023-08-19 14:34] VITALS: O2SAT 100
--- NOTE | 2023-08-19 14:34 | ERPHSYRPT ---
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 On the legs and arms. Most of these places got infected and have continued to itch andDrained purulent material.She was put on doxycycline by her PCP but that does not seem to be helping.She also received a dose of steroids from her PCP to help with the itching. Timing/Duration: week(s) (2) Quality: burning, itchy, painful Severity: moderate Location: extremities Possible Causes: other (Duck scratches) Associated Symptoms: denies symptoms Allergies/Adverse Reactions: potassium clavulanate [From Augmentin] Adverse Reaction (Severe, Verified 12/07/22 01:20) Vomiting Home Medications: Atorvastatin Calcium [Lipitor] 80 mg PO DAILY 05/07/18 [History] Furosemide 20 mg [Lasix 20 mg] 20 mg PO DAILY 05/07/18 [History] NIFEdipine [Nifedipine ER] 30 mg PO DAILY 03/08/19 [History] Melatonin 10 mg PO HS 06/28/20 [History] Valsartan [Diovan] 320 mg PO DAILY 12/02/20 [History] Cholecalciferol (Vitamin D3) [Vitamin D3] 1 cap PO DAILY 07/05/22 [History] Hydrocodone/Acetaminophen [Hydrocodone-Acetamin 10-325 mg] 1 each PO DAILY 07/05/22 [History] Hx Tetanus, Diphtheria Vaccination/Date Given: Yes Hx Influenza Vaccination/Date Given: No Hx Pneumococcal Vaccination/Date Given: No - Review of Systems Constitutional: No Fever, No Chills Eyes: No Symptoms Ears, Nose, & Throat: No Symptoms Respiratory: No Cough, No Dyspnea Cardiac: No Chest Pain, No Edema, No Syncope Abdominal/Gastrointestinal: No Abdominal Pain, No Nausea, No Vomiting, No Diarrhea Genitourinary Symptoms: No Dysuria Musculoskeletal: No Back Pain, No Neck Pain Skin: Cellulitis, Pruritis, Rash, Skin Lesions Neurological: No Dizziness, No Focal Weakness, No Sensory Changes Psychological: No Symptoms Endocrine: No Symptoms All Other Systems: Reviewed and Negative - Past Medical History Pertinent Past Medical History: Yes Neurological History: Stroke ENT History: No Pertinent History Cardiac History: Coronary Artery Disease, High Cholesterol, Hypertension, Myocardial Infarction ([place]) Respiratory History: No Pertinent History Endocrine Medical History: No Pertinent History Musculoskeletal History: Arthritis, Fibromyalgia GI Medical History: No Pertinent History History: No Pertinent History Psycho-Social History: Depression Female Reproductive Disorders: No Pertinent History Other Medical History: 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 - Past Surgical History Past Surgical History: Yes Neuro Surgical History: No Pertinent History Cardiac: CABG, Cardiac Catheterization, Cardiac Stent Respiratory: No Pertinent History Gastrointestinal: Appendectomy Genitourinary: No Pertinent History Musculoskeletal: No Pertinent History Female Surgical History: Hysterectomy, Tubal Ligation Other Surgical History: 4 TOTAL STENTS 2016 Significant Family History: no pertinent family hx - Social History Smoking Status: Current some day smoker How long have you smoked: 55 years Exposure to second hand smoke: Yes Drug Use: none Patient Lives Alone: No - Physical Exam General Appearance: mild distress, alert Eye Exam: PERRL/EOMI, eyes nml inspection Ears, Nose, Throat Exam: normal ENT inspection, pharynx normal, moist mucous membranes Neck Exam: normal inspection, non-tender, supple, full range of motion Respiratory Exam: normal breath sounds, lungs clear, No respiratory distress Cardiovascular Exam: regular rate/rhythm, normal heart sounds Gastrointestinal/Abdomen Exam: soft, mass, No tenderness Back Exam: normal inspection, normal range of motion, No CVA tenderness, No vertebral tenderness Extremity Exam: normal inspection, normal range of motion Neurologic Exam: alert, oriented x 3, cooperative, normal mood/affect, sensation nml, No motor deficits Skin Exam: normal color, warm, dry, rash, other (Excoriated areas infected) SpO2 Interpretation: normal SpO2: 100 O2 Delivery: Room Air - Course Nursing assessment & vital signs reviewed: Yes - Progress Progress: unchanged Medical Desision Making - Independent Historian Additional History obtained from: Spouse - Diagnostic Testing Diagnostic test were ordered, analyzed, and reviewed by me: No - Risk of complications Minimal Risk: Minimal risk of morbidity - Departure Departure Disposition: Home Clinical Impression: Cellulitis Condition: Stable Critical Care Time: No Referrals: VINEET KAYE [Primary Care Provider] - Follow up/PCP as directed Instructions: Wound Care (DC) Prescriptions: Cephalexin Mh 500 mg [Keflex 500 mg] 500 mg PO QID #40 cap Methylprednisolone Packet [Medrol Dosepack] 4 mg PO UD #1 packet
[2023-08-19] MEDS ORDERED: Rocephin 1000 MG INJ ONE (14:44)
[2023-08-19] MEDS ORDERED: XYLOCAINE 1% HCL 20 ML MDV ONE (14:44)
[2023-08-19] MEDS: Rocephin 1000 MG INJ IM ONE (14:48)
== END 2023-08-19 15:06 | disposition home or self-care (01) ==
LOC: ED 14:06
DX: L03.114 Cellulitis of left upper limb (principal); L03.113 Cellulitis of right upper limb; L03.116 Cellulitis of left lower limb; L03.115 Cellulitis of right lower limb; E78.5 Hyperlipidemia, unspecified; I10 Essential (primary) hypertension; Z79.52 Long term (current) use of systemic steroids; Z79.899 Other long term (current) drug therapy; Z72.0 Tobacco use
CPT/HCPCS: 96372; 99283; J0696; A9270-GY

== ENCOUNTER 2023-12-02 07:35 | Day surgery (SDC) | payer MEDICARE, OTHER ==
[2023-12-02] MEDS ORDERED: Depo-Medrol 40 MG/ML IM ONE (07:36)
[2023-12-02] MEDS ORDERED: BUPIVACAINE 0.5% VIAL IJ ONE (07:36)
[2023-12-02] MEDS ORDERED: LIDOCAINE HCL 1% 50 MG/5 ML VL PF IJ ONE (07:36)
[2023-12-02] MEDS ORDERED: DIPRIVAN 200 MG/20 ML IV ONE (08:45)
[2023-12-02] MEDS ORDERED: Versed 2 MG/2 ML Injection ONE (08:48)
[2023-12-02] MEDS ORDERED: DEXMEDETOMIDINE 80 MCG/20ML-NS IV ONE (08:49)
--- NOTE | 2023-12-02 09:29 | XRAY ---
Indication: Right L4-S1 RFA. Intraoperative fluoroscopy provided for 29 seconds. 6 digital spot images submitted for interpretation demonstrates posterior needle tips projecting over the expected right L4-S1 nerve roots. Correlate with intraoperative findings/report.
[2023-12-02] MEDS ORDERED: Lactated Ringers 1,000 ML IV ONE (09:50)
--- NOTE | 2023-12-02 10:28 | XRAY ---
29 seconds of fluoroscopy was used in surgery for a right L4-S1 RFA.
== END 2023-12-02 09:25 | disposition home or self-care (01) ==
LOC: SDC-PAIN 07:35
PROVIDERS: ATTEND Psychiatry & Neurology Pain Medicine
DX: M47.816 Spondylosis without myelopathy or radiculopathy, lumbar region (principal)
CPT/HCPCS: 64635; 64636; 72100; 77002; J2001; J2250; J2704

== ENCOUNTER 2023-12-09 07:35 | Day surgery (SDC) | payer MEDICARE, OTHER ==
[2023-12-09] MEDS ORDERED: LIDOCAINE HCL 1% 50 MG/5 ML VL PF IJ ONE (07:36)
[2023-12-09] MEDS ORDERED: BUPIVACAINE 0.5% VIAL IJ ONE (07:36)
[2023-12-09] MEDS ORDERED: Depo-Medrol 40 MG/ML IM ONE (07:36)
[2023-12-09] MEDS ORDERED: DIPRIVAN 200 MG/20 ML IV ONE (09:00)
[2023-12-09] MEDS ORDERED: Lactated Ringers 1,000 ML IV ONE (09:37)
--- NOTE | 2023-12-09 10:57 | XRAY ---
Indication: Left L4-S1 RFA. Intraoperative fluoroscopy provided for 13 seconds. 4 digital spot image submitted for interpretation demonstrates posterior needle tips projecting over expected left L4-S1 nerve roots. Correlate with intraoperative findings/report.
--- NOTE | 2023-12-09 12:05 | XRAY ---
13 seconds of fluoroscopy was used in surgery for a left L4-S1 RFA.
== END 2023-12-09 09:14 ==
LOC: SDC-PAIN 07:35
PROVIDERS: ATTEND Psychiatry & Neurology Pain Medicine
DX: M47.816 Spondylosis without myelopathy or radiculopathy, lumbar region (principal); M47.817 Spondylosis without myelopathy or radiculopathy, lumbosacral region
CPT/HCPCS: 64635; 64636; 72100; 77002; J2001; J2704

== ENCOUNTER 2024-04-30 16:38 | Observation (INO) | payer MEDICARE ==
--- NOTE | 2024-04-30 16:46 | ERPHSYRPT ---
- History of Present Illness Time Seen by Provider: 04/30/24 16:46 Source: patient, family Exam Limitations: no limitations Physician History: Pt had onset of visual symptoms and unsteadiness and vertigo today at 330 pm - prior Hx cva and effects in left eye with loss of visual field unchanged today per pt. No headache , CP, Abd pain N or V. No hx of trauma, no blood thinners. Discussed with pt and available family risks and benefits of testing/Tx including CBC, CMP, EKG, Trop, BNP, UA, CT head tele neuro and they wish to proceed so these are ordered. Results discussed with pt and available family. Timing/Duration: today Severity: moderate Modifying Factors: Improves With: nothing Associated Symptoms: other (visual symptoms vertigo unsteadiness) Allergies/Adverse Reactions: potassium clavulanate [From Augmentin] Adverse Reaction (Severe, Verified 04/30/24 16:47) Vomiting Home Medications: Atorvastatin Calcium [Lipitor] 80 mg PO DAILY 05/07/18 [History] Furosemide 20 mg [Lasix 20 mg] 20 mg PO DAILY 05/07/18 [History] NIFEdipine [Nifedipine ER] 30 mg PO DAILY 03/08/19 [History] Melatonin 10 mg PO HS 06/28/20 [History] Valsartan [Diovan] 320 mg PO DAILY 12/02/20 [History] Cholecalciferol (Vitamin D3) [Vitamin D3] 1 cap PO DAILY 07/05/22 [History] Hydrocodone/Acetaminophen [Hydrocodone-Acetamin 10-325 mg] 1 each PO DAILY 07/05/22 [History] Hx Tetanus, Diphtheria Vaccination/Date Given: Yes Hx Influenza Vaccination/Date Given: No Hx Pneumococcal Vaccination/Date Given: No Travel Risk - Emerging Infectious Disease Are you exhibiting symptoms associated with any current EIDs: No - Review of Systems Constitutional: No Fever, No Chills Eyes: No Symptoms Ears, Nose, & Throat: No Symptoms Respiratory: No Cough, No Dyspnea Cardiac: No Chest Pain, No Edema, No Syncope Abdominal/Gastrointestinal: No Abdominal Pain, No Nausea, No Vomiting, No Diarrhea Genitourinary Symptoms: No Dysuria Musculoskeletal: No Back Pain, No Neck Pain Skin: No Rash Neurological: Dizziness, Vertigo, No Focal Weakness, No Sensory Changes Psychological: No Symptoms Endocrine: No Symptoms Hematologic/Lymphatic: No Symptoms Immunological/Allergic: No Symptoms All Other Systems: Reviewed and Negative - Past Medical History Pertinent Past Medical History: Yes Neurological History: Stroke ENT History: No Pertinent History Cardiac History: Coronary Artery Disease, High Cholesterol, Hypertension, Myocardial Infarction (ME) Respiratory History: No Pertinent History Endocrine Medical History: No Pertinent History Musculoskeletal History: Arthritis, Fibromyalgia GI Medical History: No Pertinent History History: No Pertinent History Psycho-Social History: Depression Female Reproductive Disorders: No Pertinent History Other Medical History: 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 - Past Surgical History Past Surgical History: Yes Neuro Surgical History: No Pertinent History Cardiac: CABG, Cardiac Catheterization, Cardiac Stent Respiratory: No Pertinent History Gastrointestinal: Appendectomy Genitourinary: No Pertinent History Musculoskeletal: No Pertinent History Female Surgical History: Hysterectomy, Tubal Ligation Other Surgical History: 4 TOTAL STENTS 2016 Significant Family History: no pertinent family hx - Social History Smoking Status: Current some day smoker How long have you smoked: 55 years Exposure to second hand smoke: Yes Drug Use: none Patient Lives Alone: No - Social Determinants of Health Will the patient participate in the screening: Yes Do you worry about a steady place to live?: No In the past 12 months,have you had to go without utilities?: No Transportation Issues: No Has anyone in your support network made you feel unsafe?: No Have you or anyone in your house had to go without enough: No - Nursing Vital Signs Nursing Vital Signs: Initial Vital Signs Temperature 97.2 F 04/30/24 16:55 Pulse Rate 65 04/30/24 16:55 Respiratory Rate 18 04/30/24 16:55 Blood Pressure 124/70 04/30/24 16:55 O2 Sat by Pulse Oximetry 99 04/30/24 16:55 Pain Scale Pain Intensity 0 - Physical Exam General Appearance: no apparent distress, alert Eye Exam: PERRL/EOMI, eyes nml inspection Ears, Nose, Throat Exam: normal ENT inspection, TMs normal, pharynx normal, moist mucous membranes Neck Exam: normal inspection, non-tender, supple, full range of motion Respiratory Exam: normal breath sounds, lungs clear, No respiratory distress Cardiovascular Exam: regular rate/rhythm, normal heart sounds, normal peripheral pulses Gastrointestinal/Abdomen Exam: soft, normal bowel sounds, No tenderness, No mass Back Exam: normal inspection, normal range of motion, No CVA tenderness, No vertebral tenderness Extremity Exam: normal inspection, normal range of motion, pelvis stable Neurologic Exam: alert, oriented x 3, cooperative, normal mood/affect, sensation nml, other (prior visual filed deficit without change on left per pt. but new unsteady gait/coord. ), No motor deficits, No sensory deficit Skin Exam: normal color, warm, dry, No rash Lymphatic Exam: No adenopathy SpO2 Interpretation: normal SpO2: 99 O2 Delivery: Room Air - Course Nursing assessment & vital signs reviewed: Yes EKG Interpreted by Me: Sinus Rhythm, Right Oil Trough Deviation, NORMAL INTERVALS, Right Bundle Branch Block, Non-specific ST Changes, Other (antlat Q wave) - CT Exams Head CT Interpretation: Tele-radiologist Report, No/Intracranial Hemorrhag, Old Stroke (right basal ganglia) Other CT Interpretation: Tele-radiologist Report, Other (No dissection or serious stenosis or aneyrism, some plaques and mild stenoses. ) Ordered Tests: Active Orders 24 hr Category Date Time Status EKG-ER Only STAT Care 04/30/24 17:10 Active Tele-Health Consult ROUTINE Cons 04/30/24 17:[address] ANGIOGRAPHY NECK [CT] Stat Exams 04/30/24 18:41 Completed CTA HEAD W AND/OR WO CONTRAST [CT] Stat Exams 04/30/24 18:41 Completed HEAD WITHOUT CONTRAST [CT] Stat Exams 04/30/24 16:47 Completed CBC W DIFF Stat Lab 04/30/24 17:22 Completed CMP Stat Lab 04/30/24 17:22 Completed ESR [Erythrocyte Sedimentation Rate] Stat Lab 04/30/24 17:22 Completed Lactic Acid Stat Lab 04/30/24 17:10 Completed NT PRO BNPII Stat Lab 04/30/24 17:22 Completed TROPONIN Q4H Lab 04/30/24 17:22 Completed TROPONIN Q4H Lab 04/30/24 21:19 Received TROPONIN Q4H Lab 05/01/24 01:15 Ordered TSH [TSH, 3RD Generation] Stat Lab 04/30/24 17:22 Completed UA W/RFX UR CULTURE Stat Lab 04/30/24 17:11 Ordered Medication Summary Discontinued Medications Generic Name Dose Route Start Last Admin Trade Name Freq PRN Reason Stop Dose Admin Aspirin 324 mg 04/30/24 18:59 04/30/24 19:07 Aspirin 81 Mg Tab.Chew PO 04/30/24 19:00 324 mg STAT ONE Administration Aspirin Confirm 04/30/24 19:06 Aspirin 81 Mg Tab.Chew Administered 04/30/24 19:07 Dose 324 mg .ROUTE .STK-MED ONE Lab/Rad Data: Laboratory Result Diagrams 04/30/24 17:22 04/30/24 17:22 Laboratory Results 04/30/24 04/30/24 04/30/24 Range/Units 17:22 17:22 17:22 WBC (3.98-10.04) x10^3/uL RBC (3.93-5.22) x10^6/uL Hgb (11.2-15.7) g/dL Hct (34.1-44.9) % MCV (79.4-94.8) fL MCH (25.6-32.2) pg MCHC (32.2-35.5) g/dL RDW (11.7-14.4) % Plt Count (182-369) x10^3/uL MPV (9.4-12.3) fL Gran % (34.0-71.1) % Immature Gran % (Auto) (0.001-0.429) % Nucleat RBC Rel Count (0.00-0.2) % Eos # (Auto) (0.04-0.36) x10^3/uL Immature Gran # (Auto) (0.001-0.031) x10^3u/L Absolute Lymphs (auto) (1.18-3.74) x10^3/uL Absolute Monos (auto) (0.24-0.86) x10^3/uL Absolute Nucleated RBC (0.00-0.012) x10^3u/L Lymphocytes % (19.3-51.7) % Monocytes % (4.7-12.5) % Eosinophils % (0.7-5.8) % Basophils % (0.1-1.2) % Absolute Granulocytes (1.56-6.13) x10^3/uL Basophils # (0.01-0.08) x10^3/uL ESR 12 (0-20) mm/hr Sodium (135-145) mmol/L Potassium (3.5-5.1) mmol/L Chloride (98-107) mmol/L Carbon Dioxide (22-30) mmol/L Anion Gap (5-15) MEQ/L BUN (7-17) mg/dL Creatinine (0.52-1.04) mg/dL Estimated GFR ML/MIN Glucose (74-106) mg/dL Lactic Acid (0.4-2.0) Calcium (8.4-10.2) mg/dL Total Bilirubin (0.2-1.3) mg/dL AST (14-36) U/L ALT (0-35) U/L Alkaline Phosphatase (38-126) U/L Troponin I < 0.012 (0.000-0.033) ng/mL NT-Pro-B Natriuret Pep 175 (<300) pg/mL Serum Total Protein (6.3-8.2) g/dL Albumin (3.5-5.0) g/dL TSH 3rd Generation 5.161 H (0.470-4.680) mIU/L 04/30/24 04/30/24 04/30/24 Range/Units 17:22 17:22 17:10 WBC 6.0 (3.98-10.04) x10^3/uL RBC 4.19 (3.93-5.22) x10^6/uL Hgb 13.0 (11.2-15.7) g/dL Hct 39.7 (34.1-44.9) % MCV 94.7 (79.4-94.8) fL MCH 31.0 (25.6-32.2) pg MCHC 32.7 (32.2-35.5) g/dL RDW 13.2 (11.7-14.4) % Plt Count 277 (182-369) x10^3/uL MPV 9.1 L (9.4-12.3) fL Gran % 50.8 (34.0-71.1) % Immature Gran % (Auto) 0.2 (0.001-0.429) % Nucleat RBC Rel Count 0.0 (0.00-0.2) % Eos # (Auto) 0.20 (0.04-0.36) x10^3/uL Immature Gran # (Auto) 0.01 (0.001-0.031) x10^3u/L Absolute Lymphs (auto) 2.23 (1.18-3.74) x10^3/uL Absolute Monos (auto) 0.44 (0.24-0.86) x10^3/uL Absolute Nucleated RBC 0.00 (0.00-0.012) x10^3u/L Lymphocytes % 37.2 (19.3-51.7) % Monocytes % 7.3 (4.7-12.5) % Eosinophils % 3.3 (0.7-5.8) % Basophils % 1.2 (0.1-1.2) % Absolute Granulocytes 3.05 (1.56-6.13) x10^3/uL Basophils # 0.07 (0.01-0.08) x10^3/uL ESR (0-20) mm/hr Sodium 141 (135-145) mmol/L Potassium 3.8 (3.5-5.1) mmol/L Chloride 106 (98-107) mmol/L Carbon Dioxide 26 (22-30) mmol/L Anion Gap 11.9 (5-15) MEQ/L BUN 21 H (7-17) mg/dL Creatinine 1.02 (0.52-1.04) mg/dL Estimated GFR 59.6 ML/MIN Glucose 108 H (74-106) mg/dL Lactic Acid 1.6 (0.4-2.0) Calcium 9.6 (8.4-10.2) mg/dL Total Bilirubin 0.70 (0.2-1.3) mg/dL AST 34 (14-36) U/L ALT 27 (0-35) U/L Alkaline Phosphatase 77 (38-126) U/L Troponin I (0.000-0.033) ng/mL NT-Pro-B Natriuret Pep (<300) pg/mL Serum Total Protein 6.8 (6.3-8.2) g/dL Albumin 4.6 (3.5-5.0) g/dL TSH 3rd Generation (0.470-4.680) mIU/L - Progress Progress: improved, re-examined Progress Note: 04/30/24 19:00 teleneuro consult they would like cta and later MRI - they dont feel CVA at this time, but want to check posterior circulation and would like admit but are aware pt does not wish to stay and advise giving ASA and dont think that the retinal hemorrhage from previous would be at continued risk at this time. . Discussed with pt and family and they wish outpt and decline to stay in hospital or have transfer and have been informed of chance for undetected progression of a CVA or cerebrovascular or other vascular condition with permanent deficit or as well as cardiac or infection or other pathology and they have the capacity to make this choice as well as the bleeding risk from ASA. 04/30/24 19:04 04/30/24 19:04 04/30/24 19:05 04/30/24 21:24 she now states she will stay as the neurologist recommends and so we are consulting with the hospitalist to consider admission. 04/30/24 21:41 Discussed with hospitalist in consultation and agreed to place in hospitalobs. Discussed with Dr.: Other (Dr. Damian) Will see patient in: hospital (observation) Counseled pt/family regarding: lab results, diagnosis, need for follow-up, rad results Medical Desision Making - Independent Historian Additional History obtained from: Family - Discussion of managment Reviewed:: Test results, Need for additional workup Agreed on:: Treatment plan, need for follow-up - Diagnostic Testing Diagnostic test were ordered, analyzed, and reviewed by me: Yes Radiological Interpretation: Teleradiologist Report - Risk of complications The pt has a mod risk of morbidity or mortality based on: Need for prescription drug management The pt has a high risk of morbidity or mortality based on: Decision regarding hospitilization or escalation of hosp level of care - Departure Departure Disposition: Observation Clinical Impression: Neuro symptoms/TIA, Cerebrovascular disease Condition: Good Critical Care Time: No Referrals: VINEET KAYE [Primary Care Provider] - Follow up/PCP as directed
[2024-04-30 17:25] LABS: Absolute Neutrophil Ct (ANC) 3.05 x10^3/uL (1.56-6.13); BASOPHIL % 1.2 % (0.1-1.2); Basophil (Absolute #) 0.07 x10^3/uL (0.01-0.08); Eosinophil % 3.3 % (0.7-5.8); Hematocrit 39.7 % (34.1-44.9); IMMATURE GRAN # 0.01 x10^3u/L (0.001-0.031); IMMATURE GRAN % 0.2 % (0.001-0.429); Lymphocyte (Absolute #) 2.23 x10^3/uL (1.18-3.74); Lymphocytes % 37.2 % (19.3-51.7); Mean Cell Volume 94.7 fL (79.4-94.8); Mean Corpuscular Hgb Concent. 32.7 g/dL (32.2-35.5); Mean Platelet Volume 9.1 fL (9.4-12.3); Monocyte (Absolute #) 0.44 x10^3/uL (0.24-0.86); Monocytes % 7.3 % (4.7-12.5); Neutrophil % 50.8 % (34.0-71.1); Platelet Count 277 x10^3/uL (182-369); Red Blood Count 4.19 x10^6/uL (3.93-5.22); Red Cell Distribution Width 13.2 % (11.7-14.4)
[2024-04-30 17:40] LABS: ALBUMIN 4.6 g/dL (3.5-5.0); ANION GAP 11.9 MEQ/L (5-15); BILIRUBIN,TOTAL 0.7 mg/dL (0.2-1.3); Calcium 9.6 mg/dL (8.4-10.2); Creatinine 1 1.02 mg/dL (0.52-1.04); EST GLOMERULAR FILTRATION RATE 59.6 ML/MIN; Potassium 3.8 mmol/L (3.5-5.1); Total Protein 6.8 g/dL (6.3-8.2)
--- NOTE | 2024-04-30 17:48 | XRAY ---
CLINICAL HISTORY: blurred vison,unsteady COMPARISON: No previous for comparison TECHNIQUE: Axial non-contrast CT scan of the brain was performed from the skull base to the high parietal region. One of the following dose reduction techniques were utilized for this exam: Automated exposure control, adjustment of the mA and/or kV according to patient size, use of iterative reconstruction. 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 Periventricular and subcortical white matter hypodensities are likley related to small vessels disease. No evidence of acute infarct, hemorrhage, or mass effect. No abnormal areas of hypo- or hyperattenuation. Ventricular System: Ventricles are normal in size and configuration. No evidence of hydrocephalus or ventricular enlargement. Subarachnoid Spaces: Normal sulci and cisterns. No evidence of subarachnoid hemorrhage or extra-axial fluid collections. Cerebellum and Brainstem: Normal size and signal. No masses, lesions, or areas of abnormal signal. Orbits: Normal appearance of the globes, optic nerves, and extraocular muscles. No evidence of orbital masses or abnormal signal. Sinuses: Clear paranasal sinuses. No evidence of sinusitis or mucosal thickening. Mastoid Air Cells: Opacification of additus ad antrum on the left side. Clear mastoid air cells on the right side. Skull: Normal skull morphology. IMPRESSION: No acute intracranial abnormality is present. 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 Periventricular and subcortical white matter hypodenisties are likley related to small vessels disease. Mild left mastoiditis. Correlate clinically. Early changes of a stroke may not be detected on a CT scan. If strong clinical suspicion of stroke then suggest MRI with diffusion-weighted imaging. Electronically Signed by: Araseli Campbell MD. (04/30/2024 17:44:56 EST)
[2024-04-30 17:51] LABS: NT PRO BNPII 175 pg/mL (<300); TROPONIN < 0.012 ng/mL (0.000-0.033)
[2024-04-30] MEDS ORDERED: BABY ASPIRIN 81 MG CHEW ONE (19:06)
[2024-04-30] MEDS: BABY ASPIRIN 81 MG CHEW PO ONE (19:07)
--- NOTE | 2024-04-30 20:20 | PCM.NOTE ---
Date and Time: 04/30/242014 Subjective Assessment: Physician Signature This document was electronically signed by: Shanika Johnson MD Consult Cover Page FROM: [employer], Call Back Number: [phone] SUBJECT: Consult Recommendations Date and Time of Report: 04/30/2024 08:20 PM ET Items Contained in this Document: Neurology Consult Note Consult Information Member Facility: [facility] Facility Consult ID: [id number] Facility Time Zone: ET Date and Time of Request: 04-30-2024 05:27 PM ET Requesting Clinician: DR PARKER Patient Name: JOVANY SCHAEFFER Date of : 1955 Gender: Female Patient identity was confirmed at the beginning of the consult with the patient/family/staff using two personal identifiers: Patient name and Patient identity was confirmed at the beginning of the consult with the patient/family/staff using two personal identifiers (Other): This visit was performed using real-time audio and video connection between my location and the patients location with the assistance of a surrogate at the patients location. Name and were confirmed at start of the visit, and verbal consent was obtained from the patient/family to perform this visit using synchronous telemedicine technology. Any questions regarding the telemedicine interaction were answered. Reason for Consult Reason for Consult: Code Stroke TLKW less than 4.5 hours General Chief Complaint: double vision, word finding problems, and unable to walk Patient Location and Admission Status: ED- Patient is not admitted Family Members and Medical Staff Present During Exam: RNTrudy History of Present Illness: 69 y/o F with HTN, HLD, CAD and tobacco use was in her usual state of health and at work at 3:30PM, when she suddenly developed aphasia, diplopia, and gait instability. She describes being unable to make sentences. The severe double vision resolved in about 20 minutes, but she continues to have word-finding problems and feels unsteady on her feet. No COOLEY, CP, SOB, N/V, focal weakness or new focal numbness. +dizziness, resolved. +RLE numbness after CABG. No clear agg/all factors. She has h/o a "stroke" in her L eye in 2019, says she had a "bleeder" and that there was bleeding in her eye for "weeks". She has residual vision loss in upper nasal portion of L eye. No acute vision loss. She also has CAD with h/o 3v CABG, says she took a blood thinner for awhile, then was "weaned off" and changed to ASA. 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 Number of Documented HPI Elements: 4+ Medical History Medical History: Coronary Artery Disease, Hyperlipidemia, Hypertension Other Medical History: chronic back pain Other Past Procedures: BTL, hysterectomy, appy Past Procedures: Coronary Artery Bypass Graft Other Family History: sister and 2 brothers with CAD Allergies Other Allergies: Augmentin Medications Anti-Coagulants: None Anti-Platelets: None Other Medications: metoprolol, valsartan, atorvastatin, hydrocodone, Lasix, nifedipine Social History Alcohol Use: Current Drug Use: None Tobacco Use: Current Other Social History : 1.5 ppd rare drink Vital Signs Temperature F: 97.2 Temperature C: 36.2 Blood Pressure (mmHg): 110/60 Heart Rate (bpm): 66 Respiration Rate (/min): 16 O2 Sat (%): 99 Oxygen Delivery Method: Room Air EKG Rhythm: Sinus Rhythm Date and Time: 04/30/2024 05:49:06 PM ET POC Glucose(mg/dL): 108 Review Of Systems General, Constitutional: All Negative Neurological: See HPI Psychiatric: All Negative Cardiovascular: All Negative Ears, Nose, Throat: All Negative Respiratory: All Negative Gastrointestinal: All Negative Genitourinary: All Negative Musculoskeletal: Pertinent Positives/Negatives Musculoskeletal comments: chronic pain, no acute change Integumentary: All Negative Ophthalmology: See HPI NIH Stroke Scale NIH Stroke Scale Score: 0 1. Level of Consciousness: 0 : alert; keenly responsive. 1a. LOC Questions: 0 : Answers both questions correctly. 1b. LOC Commands: 0 : Performs both tasks correctly. 2. Best Gaze: 0 : Normal. 3. Visual: 0 : No visual loss. 4. Facial Palsy: 0 : Normal symmetrical movements. 5a. Motor Left Arm: 0 : No drift; limb holds 90 (or 45) degrees for full 10 seconds. 5b. Motor Right Arm : 0 : No drift; limb holds 90 (or 45) degrees for full 10 seconds. 6a. Motor Left Le : No drift; leg holds 30-degree position for full 5 seconds. 6b. Motor Right Le : No drift; leg holds 30-degree position for full 5 seconds. 7. Limb Ataxia: 0 : Absent. 8. Sensory: 0 : Normal; no sensory loss. 9. Best Language: 0 : No aphasia; normal. 10. Dysarthria: 0 : Normal. 11. Extinction and inattention (formerly Neglect) : 0 : No abnormality. NIHSS Entry Time: 04/30/2024 05:54:41 PM ET Exam Exam: NAD NCAT Neurological Exam Mental Status: Alert. Oriented x 3. Follows commands. Speaks fluently, names, repeats. Still with subjective difficulty word-finding. Cranial Nerves: VF deficit in upper nasal portion L eye (chronic). EOMI, no nystagmus, face appears symmetric, tongue midline, shoulder shrug symmetric. Motor: no drift in any extremity. No pronator drift. Sensory: intact to light touch in all extremities. Coordination: FTN and HTS intact bilaterally. No obvious ataxia or dysmetria though FTN is subjectively difficult on both sides. Gait: deferred for pt safety. *portion of exam with assistance of RN Due to inherent limitation of telemedicine, fundoscopic examination, evaluation of muscle tone, reflexes, and nuchal rigidity cannot be adequately performed by video. Clinician assisting with exam: Trudy BUNN Labs and Imaging Labs available?: Yes Blood Glucose (mg/dL): 108 WBC (mcL): 6.0 HGB (g/dL): 13 HCT (%): 39.7 PLT (mcL): 277 Na (mEq/L): 141 K (mEq/L): 3.8 BUN (mg/dL): 21 Cr (mg/dL): 1.02 Other Labs: lactic acid, LFTs, troponin, and BNP WNL TSH 5.161 CT Brain Findings: No acute changes, Chronic infarction(s), Chronic microvascular disease Assessment and Recommendations Assessment: Abrupt onset ataxia and diplopia concerning for acute ischemic posterior circulation stroke though this does not explain subjective word- finding difficulty. CT head without hemorrhage or obvious acute stroke. Not a good candidate for thrombolytic with NIHSS=0 though in the window to consider. Recommendations: - Admit to stroke unit or equivalent with remote telemetry to screen for afib - Routine MRI Brain without contrast + MRA Head/Neck without contrast IF MRA cannot be done quickly, recommend CTA Head/Neck now and then MRI Brain when able - TSH, fasting lipids, hbgA1c - Permissive HTN to 220/110 for 24 hours then gently normalize if no critical stenosis OR treat if end-organ damage/risk OR stroke ruled out - NPO until swallow screen - ASA 325 mg PO x 1 now (or ASA 300 mg MT x 1 if unable to swallow) followed by ASA 81mg daily. Continue unless contraindication arises (e.g., significantly low hemoglobin, toxically elevated INR or PTT, thrombocytopenia, hemorrhage, suspected hemorrhage, etc.). - High dose statin (Lipitor 80/Crestor 40). Goal LDL <70. - glucose under 180, NS IVF, correct any hypovolemia - DVT ppx with subq lovenox or heparin - TTE (with bubble) - PT/OT/SLT consults as needed - Smoking cessation counseling - Neurology follow-up inpatient vs outpatient - all recs unless contraindications After the above preliminary workup is completed, further decisions regarding diagnosis and/or management can be made. Please re-consult the Teleneurology service or a local neurologist, if available, with additional questions, concerns, or changes in this patients neurological status Disposition: Admit patient to telemetry or stroke unit Diagnosis Impression: Stroke Case discussed with: Dr. Parker Inclusion Criteria Time Last Known Well: 04-30-2024 03:30 PM ET Neurological deficit considered to be disabling within 4.5 h of ischemic stroke symptom onset or patient last known well: No Thrombolysis Recommendation Thrombolysis recommended?: No Reason Thrombolysis not recommended: Stroke severity too mild (non-disabling) ICD-10 Code ICD-10 Code (Primary): I63.9 : Cerebral infarction, unspecified ICD-10 Code: I10 : Essential (primary) hypertension ICD-10 Code: E78.5 : Hyperlipidemia, unspecified Attestation Interaction Mode: Video & Phone Time of Phone Call : 04-30-2024 06:55 PM ET Time of Video Call : 04-30-2024 05:40 PM ET Interaction Attestation: Clinical telemedicine services delivered using HIPAA- compliant interactive video-audio telecommunications while the patient and the rendering provider were not in the same physical location. Written report was provided to the requesting provider. Evaluation Duration (mins): 71 Wills Timer Summary ED Arrival Date and Time: 04-30-2024 04:50 PM ET Date and Time of Request: 04-30-2024 05:27 PM ET Physician Signature This document was electronically signed by: Shanika Johnson MD Objective Exam - Vital Signs Vital Signs: Vital Signs - 24 hr 04/30/24 04/30/24 04/30/24 16:55 17:06 17:23 Temperature 97.2 F Pulse Rate 65 Respiratory 18 Rate Blood Pressure 109/57 110/53 Blood Pressure 124/70 [Right Arm] O2 Sat by Pulse 99 98 97 Oximetry 04/30/24 04/30/24 04/30/24 17:30 17:58 18:00 Temperature Pulse Rate 70 65 Respiratory 18 18 Rate Blood Pressure 110/60 128/68 133/69 Blood Pressure [Right Arm] O2 Sat by Pulse 99 100 99 Oximetry 04/30/24 04/30/24 04/30/24 18:30 19:04 19:05 Temperature Pulse Rate Respiratory Rate Blood Pressure 139/56 134/65 Blood Pressure [Right Arm] O2 Sat by Pulse 99 99 Oximetry 04/30/24 04/30/24 19:31 20:00 Temperature Pulse Rate 69 Respiratory 20 Rate Blood Pressure 127/59 142/67 Blood Pressure [Right Arm] O2 Sat by Pulse 95 90 L Oximetry Objective Data - Labs Lab/Micro Results: Lab Results-Last 24 Hours 04/30/24 04/30/24 04/30/24 Range/Units 17:10 17:22 17:22 WBC 6.0 (3.98-10.04) x10^3/uL RBC 4.19 (3.93-5.22) x10^6/uL Hgb 13.0 (11.2-15.7) g/dL Hct 39.7 (34.1-44.9) % MCV 94.7 (79.4-94.8) fL MCH 31.0 (25.6-32.2) pg MCHC 32.7 (32.2-35.5) g/dL RDW 13.2 (11.7-14.4) % Plt Count 277 (182-369) x10^3/uL MPV 9.1 L (9.4-12.3) fL Gran % 50.8 (34.0-71.1) % Immature Gran % (Auto) 0.2 (0.001-0.429) % Nucleat RBC Rel Count 0.0 (0.00-0.2) % Eos # (Auto) 0.20 (0.04-0.36) x10^3/uL Immature Gran # (Auto) 0.01 (0.001-0.031) x10^3u/L Absolute Lymphs (auto) 2.23 (1.18-3.74) x10^3/uL Absolute Monos (auto) 0.44 (0.24-0.86) x10^3/uL Absolute Nucleated RBC 0.00 (0.00-0.012) x10^3u/L Lymphocytes % 37.2 (19.3-51.7) % Monocytes % 7.3 (4.7-12.5) % Eosinophils % 3.3 (0.7-5.8) % Basophils % 1.2 (0.1-1.2) % Absolute Granulocytes 3.05 (1.56-6.13) x10^3/uL Basophils # 0.07 (0.01-0.08) x10^3/uL ESR (0-20) mm/hr Sodium 141 (135-145) mmol/L Potassium 3.8 (3.5-5.1) mmol/L Chloride 106 (98-107) mmol/L Carbon Dioxide 26 (22-30) mmol/L Anion Gap 11.9 (5-15) MEQ/L BUN 21 H (7-17) mg/dL Creatinine 1.02 (0.52-1.04) mg/dL Estimated GFR 59.6 ML/MIN Glucose 108 H (74-106) mg/dL Lactic Acid 1.6 (0.4-2.0) Calcium 9.6 (8.4-10.2) mg/dL Total Bilirubin 0.70 (0.2-1.3) mg/dL AST 34 (14-36) U/L ALT 27 (0-35) U/L Alkaline Phosphatase 77 (38-126) U/L Troponin I (0.000-0.033) ng/mL NT-Pro-B Natriuret Pep (<300) pg/mL Serum Total Protein 6.8 (6.3-8.2) g/dL Albumin 4.6 (3.5-5.0) g/dL TSH 3rd Generation (0.470-4.680) mIU/L 04/30/24 04/30/24 04/30/24 Range/Units 17:22 17:22 17:22 WBC (3.98-10.04) x10^3/uL RBC (3.93-5.22) x10^6/uL Hgb (11.2-15.7) g/dL Hct (34.1-44.9) % MCV (79.4-94.8) fL MCH (25.6-32.2) pg MCHC (32.2-35.5) g/dL RDW (11.7-14.4) % Plt Count (182-369) x10^3/uL MPV (9.4-12.3) fL Gran % (34.0-71.1) % Immature Gran % (Auto) (0.001-0.429) % Nucleat RBC Rel Count (0.00-0.2) % Eos # (Auto) (0.04-0.36) x10^3/uL Immature Gran # (Auto) (0.001-0.031) x10^3u/L Absolute Lymphs (auto) (1.18-3.74) x10^3/uL Absolute Monos (auto) (0.24-0.86) x10^3/uL Absolute Nucleated RBC (0.00-0.012) x10^3u/L Lymphocytes % (19.3-51.7) % Monocytes % (4.7-12.5) % Eosinophils % (0.7-5.8) % Basophils % (0.1-1.2) % Absolute Granulocytes (1.56-6.13) x10^3/uL Basophils # (0.01-0.08) x10^3/uL ESR 12 (0-20) mm/hr Sodium (135-145) mmol/L Potassium (3.5-5.1) mmol/L Chloride (98-107) mmol/L Carbon Dioxide (22-30) mmol/L Anion Gap (5-15) MEQ/L BUN (7-17) mg/dL Creatinine (0.52-1.04) mg/dL Estimated GFR ML/MIN Glucose (74-106) mg/dL Lactic Acid (0.4-2.0) Calcium (8.4-10.2) mg/dL Total Bilirubin (0.2-1.3) mg/dL AST (14-36) U/L ALT (0-35) U/L Alkaline Phosphatase (38-126) U/L Troponin I < 0.012 (0.000-0.033) ng/mL NT-Pro-B Natriuret Pep 175 (<300) pg/mL Serum Total Protein (6.3-8.2) g/dL Albumin (3.5-5.0) g/dL TSH 3rd Generation 5.161 H (0.470-4.680) mIU/L - Radiology Orders Radiology Orders: Radiology Procedures Category Date Time Status CT ANGIOGRAPHY NECK [CT] Stat Exams 04/30/24 18:41 Taken CTA HEAD W AND/OR WO CONTRAST [CT] Stat Exams 04/30/24 18:41 Taken HEAD WITHOUT CONTRAST [CT] Stat Exams 04/30/24 16:47 Completed Assessment & Plan - Encounter Encounter: "The entirety of this encounter was performed via Telemedicine using audio and visual "
--- NOTE | 2024-04-30 21:05 | XRAY ---
CLINICAL HISTORY: NEURO SYMPTOMS COMPARISON: No previous studies are available for comparison. TECHNIQUE: CT angiography of the head and neck was performed following the intravenous administration of 80 ml isovue of iodinated contrast material. Axial images were obtained from the aortic arch to the vertex. Coronal and sagittal reformatted images were also reviewed. One of the following dose reduction techniques was utilized for this exam. Automated exposure control, adjustment of the mA and/or kV according to patient size, and use of iterative reconstruction. One of these 3D techniques was utilized: Maximum Intensity Pixel (MIP), 3D Reconstructed Images, Volume Rendered Images, Surface Shaded Rendering. DLP 730.2 FINDINGS: Carotid Arteries: Bilateral proximal common carotid, carotid bulbs and proximal internal carotid atherosclerotic calcifications causing mild stenosis. No aneurysm, or dissection. Vertebral Arteries: Small atherosclerotic plaques without significant stenosis. The vertebral arteries are patent bilaterally with no evidence of significant stenosis, aneurysm, or dissection. Thyroid Gland: The thyroid gland is normal in size and appearance with no focal lesions. Lymph Nodes: There is no evidence of significant lymphadenopathy in the neck. Soft Tissues: The soft tissues of the neck are unremarkable with no evidence of masses or abnormal collections. Additional Findings: No other significant findings are noted. IMPRESSION: 1. Bilateral proximal common carotid, carotid bulbs and proximal internal carotid atherosclerotic calcifications cause mild stenosis. No aneurysm, or dissection. 2. Small atherosclerotic plaques in the bilateral vertebral arteries without significant stenosis. Electronically Signed by: Araseli Campbell MD. (04/30/2024 21:00:45 EST)
--- NOTE | 2024-04-30 21:11 | XRAY ---
CLINICAL HISTORY: NEURO SYMPTOMS COMPARISON: No previous studies are available for comparison. TECHNIQUE: CT angiography of the head was performed following the intravenous administration of [80 cc isovue] Coronal and sagittal reformatted images were also reviewed. One of these 3D techniques was utilized: Maximum Intensity Pixel (MIP), 3D Reconstructed Images, Volume Rendered Images, Surface Shaded Rendering. One of the following dose reduction techniques was utilized for this exam. Automated exposure control, adjustment of the mA and/or kV according to patient size, and use of iterative reconstruction. FINDINGS: Intracranial Arteries: Calcified plaques in the cavernous, clinoid and supraclinoid segments of both internal carotid arteries, causing mild stenosis in the right cavernous segment. The intracranial arteries, including the anterior cerebral arteries, middle cerebral arteries, posterior cerebral arteries, basilar artery, and vertebral arteries, are all patent without evidence of aneurysm, or dissection. There is no evidence of vascular malformations. [place]: The [place] is intact with no anatomical variations or abnormalities noted. All segments are well-visualized and normal in appearance. Venous System: The visualized portions of the venous system, including the dural venous sinuses, are patent with no evidence of thrombosis. Brain Parenchyma: The brain parenchyma shows no evidence of acute infarct, hemorrhage, or mass effect. The ventricles and sulci are normal in size and configuration. Bones: The bony structures of the skull are intact without evidence of fracture or destructive lesions. Soft Tissues: The visualized soft tissues of the head are unremarkable. Additional Findings: No other significant findings are noted. IMPRESSION: Calcified plaques in the cavernous, clinoid and supraclinoid segments of both internal carotid arteries, causing mild stenosis in the right cavernous segment. Electronically Signed by: Araseli Campbell MD. (04/30/2024 21:07:11 EST)
[2024-04-30 23:25] LABS: Appearance Clear (Clear); Bacteria Rare /HPF (None Seen); Bilirubin Negative (Negative); Blood Negative (Negative); Epithelial Cells Rare /HPF (None Seen); Glucose, Urine Negative (Negative); Hyaline Casts NONE SEEN /LPF (0-2); Ketones Negative (Negative); Leukocyte Esterase Trace (Negative); Nitrite Negative (Negative); Protein,Urine Dip Negative (Negative); RBC 0-2 /HPF (0-5); Specific Gravity >=1.030 (1.005-1.030); Urobilinogen 0.2 mg/dL (0.2)
[2024-05-01] MEDS ORDERED: LIORESAL 10 MG PO PRN (00:29)
[2024-05-01] MEDS ORDERED: NORCO 10-325 MG PO PRN (00:29)
[2024-05-01] MEDS ORDERED: TYLENOL 325 MG PO PRN (00:30)
[2024-05-01] MEDS: NORCO 10-325 MG PO PRN ×2 (00:59→09:12)
--- NOTE | 2024-05-01 01:48 | PCM.HP ---
History of Present Illness - Chief Complaint Chief Complaint: ataxia, diplopia Date: 05/01/24 History of Present Illness: 69-year-old woman with a history of hypertension, CAD, and fibromyalgia, who presents with sudden onset this afternoon of dizziness, ataxia, diplopia, and aphasia. Symptoms lasted a few hours, and have now all resolved. No associated facial weakness or any sensory changes. However, she had difficulty with any kind of walking. No fevers, hearing changes, visual acuity changes. No prior history of strokes or similar symptoms. She has had CAD with a three-vessel CABG. She smokes 1 and half packs per day. No family history of premature CAD or CVA. Currently she feels she is back to her baseline functional status. - Review of Systems All Other Systems: Reviewed and Negative Medications & Allergies Home Medications: Home Medication List Atorvastatin Calcium [Lipitor] 80 mg PO DAILY 05/07/18 [History Confirmed 04/30/24] Furosemide 20 mg [Lasix 20 mg] 20 mg PO DAILY 05/07/18 [History Confirmed 04/30/24] NIFEdipine [Nifedipine ER] 30 mg PO DAILY 03/08/19 [History Confirmed 04/30/24] Melatonin 10 mg PO HS 06/28/20 [History Confirmed 04/30/24] Metoprolol Tartrate 25 mg [Lopressor 25MG Tab] 12.5 mg PO BID #15 tab 06/29/20 [Rx Confirmed 04/30/24] Valsartan [Diovan] 320 mg PO DAILY 12/02/20 [History Confirmed 04/30/24] Cholecalciferol (Vitamin D3) [Vitamin D3] 1 cap PO DAILY 07/05/22 [History Confirmed 04/30/24] Hydrocodone/Acetaminophen [Hydrocodone-Acetamin 10-325 mg] 1 each PO Q8H 07/05/22 [History Confirmed 04/30/24] Baclofen 10 mg [Lioresal 10 mg] 10 mg PO DAILY PRN PRN 04/30/24 [History Confirmed 04/30/24] Ezetimibe 10 mg PO DAILY 04/30/24 [History Confirmed 04/30/24] Magnesium 200 mg PO HS 04/30/24 [History Confirmed 04/30/24] Allergies/Adverse Reactions: Allergies Allergy/AdvReac Type Severity Reaction Status Date / Time potassium clavulanate AdvReac Severe Vomiting Verified 04/30/24 16:47 [From Augmentin] - Past Medical History Past Medical History: Yes Neurological History: Stroke ENT History: No Pertinent History Cardiac History: Coronary Artery Disease, High Cholesterol, Hypertension, Myocardial Infarction (MT) Respiratory History: No Pertinent History Endocrine Medical History: No Pertinent History Musculoskelatal History: Arthritis, Fibromyalgia GI Medical History: No Pertinent History History: No Pertinent History Pyscho-Social History: Depression Reproductive Disorders: No Pertinent History Comment: 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 - Past Surgical History Past Surgical History: Yes Neuro Surgical History: No Pertinent History Cardiac History: CABG, Cardiac Catheterization, Cardiac Stent Respiratory Surgery: No Pertinent History GI Surgical History: Appendectomy Genitourinary Surgical Hx: No Pertinent History Musculskeletal Surgical Hx: No Pertinent History Female Surgical History: Hysterectomy, Tubal Ligation Other Surgical History: 4 TOTAL STENTS 2016 Significant Family History: no pertinent family hx - Social History Smoking Status: Current some day smoker How long have you smoked: 55 years Exposure to second hand smoke: Yes Alcohol: None Drug Use: none - Social Determinants of Health Will the patient participate in the screening: Yes Do you worry about a steady place to live?: No Do you have any problems with any of the following?: No known problems In the past 12 months,have you had to go without utilities?: No Have you or anyone in your house had to go without enough: No Transportation Issues: No Has anyone in your support network made you feel unsafe?: No Does the patient want assistance with any of the above?: No - Physical Exam Vital Signs: Vital Signs - 24 hr Temp Pulse Resp BP BP Pulse Ox 04/30/24 23:41 96.9 F 74 16 109/55 94 L 04/30/24 23:16 74 94 L 04/30/24 23:02 71 20 117/56 97 04/30/24 22:30 142/71 99 04/30/24 22:00 66 18 159/82 98 04/30/24 21:43 99 04/30/24 21:30 131/67 97 04/30/24 21:00 63 17 125/77 96 04/30/24 20:30 134/71 96 04/30/24 20:00 69 20 142/67 90 L 04/30/24 19:31 127/59 95 04/30/24 19:04 134/65 99 04/30/24 18:30 139/56 04/30/24 18:00 65 18 133/69 99 04/30/24 17:58 70 18 128/68 100 04/30/24 17:30 110/60 99 04/30/24 17:23 110/53 97 04/30/24 17:06 109/57 98 04/30/24 16:55 97.2 F 65 18 124/70 99 Physical Exam GEN: Sitting up in bed in no acute distress. HENT: Normocephalic, atraumatic. Moist mucous membranes. EYES: Normal inspection, anicteric sclera, extraocular movements intact. NECK: Supple, full range of motion CV: Regular rate and rhythm, no murmurs, no gallops. No JVD or edema. PULM: Clear to auscultation bilaterally, no work of breathing. On room air. ABD: Nondistended, nontender. MSK: No joint effusions, full range of motion SKIN: No rashes, normal color. NEURO: Face symmetric, speech intact without dysarthria or apparent word finding difficulty. No focal motor or sensory deficits. PSYCH: Alert, oriented x 3 Results - Labs Lab/Micro Results: Lab Results-Last 24 Hours 04/30/24 04/30/24 04/30/24 Range/Units 17:10 17:22 17:22 WBC 6.0 (3.98-10.04) x10^3/uL RBC 4.19 (3.93-5.22) x10^6/uL Hgb 13.0 (11.2-15.7) g/dL Hct 39.7 (34.1-44.9) % MCV 94.7 (79.4-94.8) fL MCH 31.0 (25.6-32.2) pg MCHC 32.7 (32.2-35.5) g/dL RDW 13.2 (11.7-14.4) % Plt Count 277 (182-369) x10^3/uL MPV 9.1 L (9.4-12.3) fL Gran % 50.8 (34.0-71.1) % Immature Gran % (Auto) 0.2 (0.001-0.429) % Nucleat RBC Rel Count 0.0 (0.00-0.2) % Eos # (Auto) 0.20 (0.04-0.36) x10^3/uL Immature Gran # (Auto) 0.01 (0.001-0.031) x10^3u/L Absolute Lymphs (auto) 2.23 (1.18-3.74) x10^3/uL Absolute Monos (auto) 0.44 (0.24-0.86) x10^3/uL Absolute Nucleated RBC 0.00 (0.00-0.012) x10^3u/L Lymphocytes % 37.2 (19.3-51.7) % Monocytes % 7.3 (4.7-12.5) % Eosinophils % 3.3 (0.7-5.8) % Basophils % 1.2 (0.1-1.2) % Absolute Granulocytes 3.05 (1.56-6.13) x10^3/uL Basophils # 0.07 (0.01-0.08) x10^3/uL ESR (0-20) mm/hr Sodium 141 (135-145) mmol/L Potassium 3.8 (3.5-5.1) mmol/L Chloride 106 (98-107) mmol/L Carbon Dioxide 26 (22-30) mmol/L Anion Gap 11.9 (5-15) MEQ/L BUN 21 H (7-17) mg/dL Creatinine 1.02 (0.52-1.04) mg/dL Estimated GFR 59.6 ML/MIN Glucose 108 H (74-106) mg/dL Lactic Acid 1.6 (0.4-2.0) Calcium 9.6 (8.4-10.2) mg/dL Total Bilirubin 0.70 (0.2-1.3) mg/dL AST 34 (14-36) U/L ALT 27 (0-35) U/L Alkaline Phosphatase 77 (38-126) U/L Troponin I (0.000-0.033) ng/mL NT-Pro-B Natriuret Pep (<300) pg/mL Serum Total Protein 6.8 (6.3-8.2) g/dL Albumin 4.6 (3.5-5.0) g/dL TSH 3rd Generation (0.470-4.680) mIU/L Urine Color (Yellow) Urine Appearance (Clear) Urine pH (4.6-8.0) Ur Specific [place] (1.005-1.030) Urine Protein (Negative) Urine Glucose (UA) (Negative) mg/dL Urine Ketones (Negative) Urine Blood (Negative) Urine Nitrite (Negative) Urine Bilirubin (Negative) Urine Urobilinogen (0.2) mg/dL Ur Leukocyte Esterase (Negative) U Hyaline Cast (Auto) (0-2) /LPF Urine Microscopic RBC (0-5) /HPF Urine Microscopic WBC (0-5) /HPF Ur Epithelial Cells (None Seen) /HPF Urine Bacteria (None Seen) /HPF Urine Culture Reflexed (NO) 04/30/24 04/30/24 04/30/24 Range/Units 17:22 17:22 17:22 WBC (3.98-10.04) x10^3/uL RBC (3.93-5.22) x10^6/uL Hgb (11.2-15.7) g/dL Hct (34.1-44.9) % MCV (79.4-94.8) fL MCH (25.6-32.2) pg MCHC (32.2-35.5) g/dL RDW (11.7-14.4) % Plt Count (182-369) x10^3/uL MPV (9.4-12.3) fL Gran % (34.0-71.1) % Immature Gran % (Auto) (0.001-0.429) % Nucleat RBC Rel Count (0.00-0.2) % Eos # (Auto) (0.04-0.36) x10^3/uL Immature Gran # (Auto) (0.001-0.031) x10^3u/L Absolute Lymphs (auto) (1.18-3.74) x10^3/uL Absolute Monos (auto) (0.24-0.86) x10^3/uL Absolute Nucleated RBC (0.00-0.012) x10^3u/L Lymphocytes % (19.3-51.7) % Monocytes % (4.7-12.5) % Eosinophils % (0.7-5.8) % Basophils % (0.1-1.2) % Absolute Granulocytes (1.56-6.13) x10^3/uL Basophils # (0.01-0.08) x10^3/uL ESR 12 (0-20) mm/hr Sodium (135-145) mmol/L Potassium (3.5-5.1) mmol/L Chloride (98-107) mmol/L Carbon Dioxide (22-30) mmol/L Anion Gap (5-15) MEQ/L BUN (7-17) mg/dL Creatinine (0.52-1.04) mg/dL Estimated GFR ML/MIN Glucose (74-106) mg/dL Lactic Acid (0.4-2.0) Calcium (8.4-10.2) mg/dL Total Bilirubin (0.2-1.3) mg/dL AST (14-36) U/L ALT (0-35) U/L Alkaline Phosphatase (38-126) U/L Troponin I < 0.012 (0.000-0.033) ng/mL NT-Pro-B Natriuret Pep 175 (<300) pg/mL Serum Total Protein (6.3-8.2) g/dL Albumin (3.5-5.0) g/dL TSH 3rd Generation 5.161 H (0.470-4.680) mIU/L Urine Color (Yellow) Urine Appearance (Clear) Urine pH (4.6-8.0) Ur Specific [place] (1.005-1.030) Urine Protein (Negative) Urine Glucose (UA) (Negative) mg/dL Urine Ketones (Negative) Urine Blood (Negative) Urine Nitrite (Negative) Urine Bilirubin (Negative) Urine Urobilinogen (0.2) mg/dL Ur Leukocyte Esterase (Negative) U Hyaline Cast (Auto) (0-2) /LPF Urine Microscopic RBC (0-5) /HPF Urine Microscopic WBC (0-5) /HPF Ur Epithelial Cells (None Seen) /HPF Urine Bacteria (None Seen) /HPF Urine Culture Reflexed (NO) 04/30/24 04/30/24 Range/Units 21:19 22:38 WBC (3.98-10.04) x10^3/uL RBC (3.93-5.22) x10^6/uL Hgb (11.2-15.7) g/dL Hct (34.1-44.9) % MCV (79.4-94.8) fL MCH (25.6-32.2) pg MCHC (32.2-35.5) g/dL RDW (11.7-14.4) % Plt Count (182-369) x10^3/uL MPV (9.4-12.3) fL Gran % (34.0-71.1) % Immature Gran % (Auto) (0.001-0.429) % Nucleat RBC Rel Count (0.00-0.2) % Eos # (Auto) (0.04-0.36) x10^3/uL Immature Gran # (Auto) (0.001-0.031) x10^3u/L Absolute Lymphs (auto) (1.18-3.74) x10^3/uL Absolute Monos (auto) (0.24-0.86) x10^3/uL Absolute Nucleated RBC (0.00-0.012) x10^3u/L Lymphocytes % (19.3-51.7) % Monocytes % (4.7-12.5) % Eosinophils % (0.7-5.8) % Basophils % (0.1-1.2) % Absolute Granulocytes (1.56-6.13) x10^3/uL Basophils # (0.01-0.08) x10^3/uL ESR (0-20) mm/hr Sodium (135-145) mmol/L Potassium (3.5-5.1) mmol/L Chloride (98-107) mmol/L Carbon Dioxide (22-30) mmol/L Anion Gap (5-15) MEQ/L BUN (7-17) mg/dL Creatinine (0.52-1.04) mg/dL Estimated GFR ML/MIN Glucose (74-106) mg/dL Lactic Acid (0.4-2.0) Calcium (8.4-10.2) mg/dL Total Bilirubin (0.2-1.3) mg/dL AST (14-36) U/L ALT (0-35) U/L Alkaline Phosphatase (38-126) U/L Troponin I < 0.012 (0.000-0.033) ng/mL NT-Pro-B Natriuret Pep (<300) pg/mL Serum Total Protein (6.3-8.2) g/dL Albumin (3.5-5.0) g/dL TSH 3rd Generation (0.470-4.680) mIU/L Urine Color Yellow (Yellow) Urine Appearance Clear (Clear) Urine pH 7.0 (4.6-8.0) Ur Specific [place] >=1.030 A (1.005-1.030) Urine Protein Negative (Negative) Urine Glucose (UA) Negative (Negative) mg/dL Urine Ketones Negative (Negative) Urine Blood Negative (Negative) Urine Nitrite Negative (Negative) Urine Bilirubin Negative (Negative) Urine Urobilinogen 0.2 (0.2) mg/dL Ur Leukocyte Esterase Trace A (Negative) U Hyaline Cast (Auto) NONE SEEN (0-2) /LPF Urine Microscopic RBC 0-2 (0-5) /HPF Urine Microscopic WBC 6-10 A (0-5) /HPF Ur Epithelial Cells Rare (None Seen) /HPF Urine Bacteria Rare A (None Seen) /HPF Urine Culture Reflexed NO (NO) - Radiology Impressions Radiology Exams & Impressions: Radiology Procedures Category Date Time Status CT ANGIOGRAPHY NECK [CT] Stat Exams 04/30/24 18:41 Completed CTA HEAD W AND/OR WO CONTRAST [CT] Stat Exams 04/30/24 18:41 Completed ECHO W/2D AND DOPPLER [US] Routine Exams 05/01/24 00:30 Ordered HEAD WITHOUT CONTRAST [CT] Stat Exams 04/30/24 16:47 Completed MRI BRAIN W/O CONTRAST [MRI] Routine Exams 05/01/24 00:[address] head no acute intracranial abnormality. Likely old infarction and small hypodense area in the right basal ganglia. CTA neck bilateral proximal common carotid, carotid bulb, and proximal internal carotid atherosclerotic calcifications causing mild stenosis. No aneurysm or dissection. Small atherosclerotic plaques in the bilateral vertebral arteries without significant stenosis. CTA head calcified plaques in the cavernous, clinically, and supraclinoid segments of both internal carotid arteries, causing mild stenosis in the right cavernous segment. Assessment/Plan (1) Cerebrovascular disease Current Visit: Yes Status: Acute Assessment & Plan: 69-year-old with a history of hypertension, CAD, fibromyalgia, here with symptoms consistent with CVA. ## Acute stroke sudden onset of diplopia, ataxia, and aphasia, consistent with CVA. Possibly TIA given that symptoms have resolved after a few hours. Patient has risk factors including age, smoking status, and history of coronary vascular disease. No large stenosis on CTA of the head and neck. Place in observation Monitor on telemetry Neurochecks q.4 hours MRI brain Echo with bubble study Check lipid panel, A1c TSH is borderline elevated, will check free T4 levels PT evaluation Aspirin 81 mg daily Continue home high-dose atorvastatin Encourage smoking cessation ## Hypertension blood pressure controlled. Continue home valsartan 3 to 20 mg, nifedipine 30 mg daily, Lopressor 12.5 BID ## Tobacco use currently smoking 1-1/2 packs/day. Encouraged smoking cessation Patient declined nicotine patch but will request if having further cravings ## History of CAD no current chest pain. Unclear why not already on aspirin. Continue atorvastatin 80 mg daily, Lopressor up to 1 5 BID CODE STATUS: Full code Prophylaxis: Encourage ambulation; low risk, Juan score 1 Diet: Regular Dispo: Place in observation, check patient to be discharged to home after MRI Code(s): I67.9 - CEREBROVASCULAR DISEASE, UNSPECIFIED Telemedicine Encounter - Telemedicine Encounter Telemedicine Encounter: "The entirety of this encounter was performed via Telemedicine" This visit was performed using real-time audio and video connection between my location and thepatients locationwith the assistance of a surrogateat the patients location. Written or verbal consent was obtained from the patient/guardian to perform this visit usingsynchrTutor Tro[employer]medicine technology. Any patient questions regarding the telemedicine interaction were answered.
[2024-05-01 06:22] LABS: Hematocrit 38.4 % (34.1-44.9); Hemoglobin 12.6 g/dL (11.2-15.7); Mean Cell Volume 94.6 fL (79.4-94.8); Mean Corpuscular Hgb Concent. 32.8 g/dL (32.2-35.5); Mean Platelet Volume 9.4 fL (9.4-12.3); Platelet Count 276 x10^3/uL (182-369); Red Blood Count 4.06 x10^6/uL (3.93-5.22); Red Cell Distribution Width 13.6 % (11.7-14.4); White Blood Count 7.5 x10^3/uL (3.98-10.04)
[2024-05-01 07:00] LABS: ANION GAP 9.4 MEQ/L (5-15); Calcium 9.1 mg/dL (8.4-10.2); Creatinine 1 0.89 mg/dL (0.52-1.04); EST GLOMERULAR FILTRATION RATE 70.1 ML/MIN; Potassium 3.7 mmol/L (3.5-5.1)
[2024-05-01] MEDS: Adalat CC 30 MG TABLET PO SCH (09:06)
[2024-05-01] MEDS: ECOTRIN 81 MG PO SCH (09:07)
[2024-05-01] MEDS: VITAMIN D PO SCH (09:07)
[2024-05-01] MEDS: DIOVAN 80 MG PO SCH (09:08)
[2024-05-01] MEDS: Zetia 10 MG PO SCH (09:08)
[2024-05-01] MEDS: ZOCOR 20MG PO SCH (09:08)
[2024-05-01] MEDS: LASIX 20 MG PO SCH (09:13)
[2024-05-01] MEDS: Lopressor 25MG Tab PO SCH (09:13)
[2024-05-01] MEDS: Zyvox 600 MG IV PREMIX*** 300 ML IV SCH (09:14)
[2024-05-01] MEDS: ROCEPHIN 1 GM / 100 ML NaCl 1 GM/100 ML IVPB IV SCH (09:14)
[2024-05-01] MEDS ORDERED: NON-FORMULARY ITEM (Cholecalciferol (Vitamin D3) [Vitamin D3] 125 MCG Capsule) PO SCH (10:00)
[2024-05-01] MEDS ORDERED: NON-FORMULARY ITEM (Atorvastatin Calcium [Lipitor] 80 MG Tablet) PO SCH (10:00)
[2024-05-01] MEDS ORDERED: NIFEDIPINE 30 MG PO SCH (10:00)
[2024-05-01] MEDS ORDERED: NON-FORMULARY ITEM (Valsartan [Diovan] 320 MG Tablet) PO SCH (10:00)
[2024-05-01] MEDS: Nicoderm CQ 21 MG TOP SCH (15:27)
[2024-05-01] MEDS: MAG-OX 400 PO SCH (21:38)
[2024-05-01] MEDS: MELATONIN PO SCH (21:38)
[2024-05-01] MEDS ORDERED: NON-FORMULARY ITEM (Magnesium [Magnesium] 200 MG Tablet) PO SCH (22:00)
[2024-05-01] MEDS ORDERED: NON-FORMULARY ITEM (Melatonin [Melatonin] 10 MG Tablet) PO SCH (22:00)
[2024-05-02 05:12] LABS: Hemoglobin 12.3 g/dL (11.2-15.7); Mean Cell Volume 94.8 fL (79.4-94.8); Mean Corpuscular Hemoglobin 30.7 pg (25.6-32.2); Mean Corpuscular Hgb Concent. 32.4 g/dL (32.2-35.5); Mean Platelet Volume 9.4 fL (9.4-12.3); Platelet Count 244 x10^3/uL (182-369); Red Blood Count 4.01 x10^6/uL (3.93-5.22); Red Cell Distribution Width 13.2 % (11.7-14.4); White Blood Count 5.9 x10^3/uL (3.98-10.04)
--- NOTE | 2024-05-02 05:27 | PCM.NOTE ---
Date and Time: 05/02/24523 Subjective Assessment: Ms. Pires is a 69 year old female with a pmhx of HTN, CAD with 4 stents, HLD, TN, depression, stroke (in left eye in 2019 per pt report with residual vision loss), and fibromyalgia who presented to ED 04/30/24 with sudden onset this afternoon of dizziness, ataxia, diplopia, and aphasia. Symptoms lasted a few hours, and have now all resolved. No associated facial weakness or any sensory changes. However, she had difficulty with any kind of walking. No fevers, hearing changes, visual acuity changes. CT head with small hypodense area in the right basal ganglia is likely old infraction. Periventricular and subcortical white matter hypodenisties are likely related to small vessels disease. Mild left mastoiditis. CTA neck with no significant stenosis.Bilateral proximal common carotid, carotid bulbs and proximal internal carotid atherosclerotic calcifications cause mild stenosis. Head CTA with mild stenosis in the right cavernous segment. Neurology consulted with recommendations for tele, MRI brain w/o contrast and Echo. Additional recommendations of HD statin, ASA, PT/OT consults. Objective Data Vital Signs: Vital Signs - 24 hr Temp Pulse Resp BP Pulse Ox 05/02/24 03:00 97.5 F 62 18 133/72 95 05/01/24 23:16 61 05/01/24 23:00 96.8 F 63 17 104/57 95 05/01/24 19:20 97.5 F 70 127/71 94 L 05/01/24 16:00 97.6 F 62 21 142/63 95 05/01/24 12:00 97.9 F 68 15 145/66 98 05/01/24 07:42 98.0 F 71 17 135/62 95 Pain Assessment - Last Documented Pain Intensity 0 Pain Scale Used 0-10 Pain Scale Intake and Output: Intake & Output 04/29/24 04/30/24 05/01/24 05/02/24 11:59 11:59 11:59 11:59 Intake Total 1380 Balance 1380 Weight 84.5 kg Lab Results: Lab Results-Last 24 Hours 05/01/24 05/01/24 05/01/24 Range/Units 06:15 06:15 06:15 WBC 7.5 (3.98-10.04) x10^3/uL RBC 4.06 (3.93-5.22) x10^6/uL Hgb 12.6 (11.2-15.7) g/dL Hct 38.4 (34.1-44.9) % MCV 94.6 (79.4-94.8) fL MCH 31.0 (25.6-32.2) pg MCHC 32.8 (32.2-35.5) g/dL RDW 13.6 (11.7-14.4) % Plt Count 276 (182-369) x10^3/uL MPV 9.4 (9.4-12.3) fL Sodium 139 (135-145) mmol/L Potassium 3.7 (3.5-5.1) mmol/L Chloride 109 H (98-107) mmol/L Carbon Dioxide 24 (22-30) mmol/L Anion Gap 9.4 (5-15) MEQ/L BUN 20 H (7-17) mg/dL Creatinine 0.89 (0.52-1.04) mg/dL Estimated GFR 70.1 ML/MIN Glucose 98 (74-106) mg/dL Hemoglobin A1c 5.66 (4.5-6.0) % Calcium 9.1 (8.4-10.2) mg/dL Triglycerides 132 (30-150) mg/dL Cholesterol 106 (50-200) mg/dL LDL Cholesterol 43 (30-100) mg/dL HDL Cholesterol 44 (40-60) mg/dL Heart Disease Risk Ratio 2.0 Free T4 (0.78-2.19) ng/dL 05/01/24 05/02/24 Range/Units 06:15 05:05 WBC 5.9 (3.98-10.04) x10^3/uL RBC 4.01 (3.93-5.22) x10^6/uL Hgb 12.3 (11.2-15.7) g/dL Hct 38.0 (34.1-44.9) % MCV 94.8 (79.4-94.8) fL MCH 30.7 (25.6-32.2) pg MCHC 32.4 (32.2-35.5) g/dL RDW 13.2 (11.7-14.4) % Plt Count 244 (182-369) x10^3/uL MPV 9.4 (9.4-12.3) fL Sodium (135-145) mmol/L Potassium (3.5-5.1) mmol/L Chloride (98-107) mmol/L Carbon Dioxide (22-30) mmol/L Anion Gap (5-15) MEQ/L BUN (7-17) mg/dL Creatinine (0.52-1.04) mg/dL Estimated GFR ML/MIN Glucose (74-106) mg/dL Hemoglobin A1c (4.5-6.0) % Calcium (8.4-10.2) mg/dL Triglycerides (30-150) mg/dL Cholesterol (50-200) mg/dL LDL Cholesterol (30-100) mg/dL HDL Cholesterol (40-60) mg/dL Heart Disease Risk Ratio Free T4 0.99 (0.78-2.19) ng/dL Radiology Exams: Radiology Procedures Category Date Time Status CT ANGIOGRAPHY NECK [CT] Stat Exams 04/30/24 18:41 Completed CTA HEAD W AND/OR WO CONTRAST [CT] Stat Exams 04/30/24 18:41 Completed ECHO W/2D AND DOPPLER [US] Routine Exams 05/01/24 00:30 Ordered HEAD WITHOUT CONTRAST [CT] Stat Exams 04/30/24 16:47 Completed MRI BRAIN W/O CONTRAST [MRI] Routine Exams 05/01/24 00:32 Ordered Assessment/Plan (1) Cerebrovascular disease Current Visit: Yes Status: Acute Assessment & Plan: -CTA head and neck reviewed with no large stenosis -CT head with with small hypodense area in the right basal ganglia is likely old infraction. Periventricular and subcortical white matter hypodenisties are likely related to small vessels disease. Mild left mastoiditis. Monitor on telemetry Neurochecks q.4 hours MRI brain pending Echo with bubble study -not available at this facility - will however obtain echo lipid panel WNL TSH is borderline elevated, will check free T4 levels PT evaluation Aspirin 81 mg daily Continue home high-dose atorvastatin Encourage smoking cessation -CMP/CBC reviewed- unremarkable Code(s): I67.9 - CEREBROVASCULAR DISEASE, UNSPECIFIED (2) HTN (hypertension) Current Visit: Yes Status: Acute Assessment & Plan: blood pressure controlled. Continue home valsartan 3 to 20 mg, nifedipine 30 mg daily, Lopressor 12.5 BID Code(s): I10 - ESSENTIAL (PRIMARY) HYPERTENSION (3) Tobacco abuse Current Visit: Yes Status: Acute Assessment & Plan: currently smoking 1-1/2 packs/day. Encouraged smoking cessation Patient declined nicotine patch but will request if having further cravings Code(s): Z72.0 - TOBACCO USE (4) Mastoiditis Current Visit: Yes Status: Acute Assessment & Plan: -As shown on CT -MRI pending -Patient started on Rocephin/Zyvox Code(s): H70.90 - UNSPECIFIED MASTOIDITIS, UNSPECIFIED EAR (5) History of CAD (coronary artery disease) Current Visit: Yes Status: Acute Assessment & Plan: -H/o stent placement Continue atorvastatin 80 mg daily, Lopressor up to 1 5 BID CODE STATUS: Full code Prophylaxis: Encourage ambulation; low risk, Juan score 1 Diet: Regular Dispo: Place in observation, check patient to be discharged to home after MRI Code(s): Z86.79 - PERSONAL HISTORY OF OTHER DISEASES OF THE CIRCULATORY SYSTEM
[2024-05-02 05:42] LABS: ALBUMIN 3.9 g/dL (3.5-5.0); ANION GAP 13.1 MEQ/L (5-15); BILIRUBIN,TOTAL 0.4 mg/dL (0.2-1.3); Calcium 9.2 mg/dL (8.4-10.2); Creatinine 1 0.99 mg/dL (0.52-1.04); EST GLOMERULAR FILTRATION RATE 61.7 ML/MIN; Total Protein 6.2 g/dL (6.3-8.2)
[2024-05-02 12:18] VITALS: BP 163/77; PULSE 70; RESP 17; TEMP 97.5; O2SAT 97
--- NOTE | 2024-05-02 13:44 | XRAY ---
Indication: Visual disturbance. Stroke symptoms. Negative CT head. Sagittal, coronal, and axial MRI brain performed without contrast using T1, T2, FLAIR, diffusion, and ADC sequences. Comparison: June 29, 2020 Again age-appropriate global atrophy and moderate periventricular degenerative micro-ischemia signal bilaterally. Brain stem again demonstrates minimal degenerative micro-ischemia signal unchanged. Right cerebellum demonstrates new remote lacunar infarct. No acute intracranial hemorrhage, abnormal extra-axial fluid collection, or mass diffusion images again negative for restricted signal. Fourth ventricle is midline without hydrocephalus. 7/8 cranial nerve complex bilaterally symmetric. Normal flow-void signal within the major intracerebral circulation. Normal appearing craniocervical junction and sella turcica. Paranasal sinuses are clear. Impression: 1. Again atrophy and degenerative micro-ischemia within normal limits. 2. New remote lacunar infarct right cerebellum. 3. Remaining MRI brain without contrast is again negative.
--- NOTE | 2024-05-02 15:31 | PCM.DS ---
Discharge Summary Date of Admission: 04/30/24 23:07 Date of Discharge: 05/02/24 Admitting Physician: ELPIDIO HOPSON MD Consults: Consults on Case 04/30/24 17:13 Tele-Health Consult ROUTINE Primary Care Provider: VINEET KAYE Allergies Allergies potassium clavulanate [From Augmentin] Adverse Reaction (Severe, Verified 04/30/24 16:47) Vomiting Hospital Summary - Hospital Course Hospital Course: Ms. Pires is a 69 year old female with a pmhx of HTN, CAD with 4 stents, HLD, ID, depression, stroke (in left eye in 2019 per pt report with residual vision loss), and fibromyalgia who presented to ED 04/30/24 with sudden onset this afternoon of dizziness, ataxia, diplopia, and aphasia. Symptoms lasted a few hours, and have now all resolved. No associated facial weakness or any sensory changes. However, she had difficulty with any kind of walking. No fevers, hearing changes, visual acuity changes. CT head with small hypodense area in the right basal ganglia is likely old infraction. Periventricular and subcortical white matter hypodenisties are likely related to small vessels disease. Mild left mastoiditis. CTA neck with no significant stenosis.Bilateral proximal common carotid, carotid bulbs and proximal internal carotid atherosclerotic calcifications cause mild stenosis. Head CTA with mild stenosis in the right cavernous segment. Neurology consulted with recommendations for tele, MRI brain w/o contrast and Echo. Additional recommendations of HD statin, ASA, PT/OT consults. MRI findings with new remote lacunar infarct right cerebellum. Symptoms have completely resolved. Echo pending. Patient to dc with follow up with PCP for echo results. Will send home on ASA/plavix x 21 days, then ASA there after. Continue Statin. Neurology and PCP follow up appts made. Advised strongly to quit smoking. Nicotine patches sent to pharmacy. 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 Periventricular and subcortical white matter hypodenisties are likely related to small vessels disease. Mild left mastoiditis. Monitor on telemetry Neurochecks q.4 hours MRI brain with new remote lacunar infarct right cerebellum. Echo with bubble study -not available at this facility - will however obtain echo - follow up with PCP for results lipid panel WNL TSH is borderline elevated, will check free T4 levels PT evaluation Aspirin 81 mg daily/plavix x 21 days - then just ASA Continue home high-dose atorvastatin Encourage smoking cessation -CMP/CBC reviewed- unremarkable Code(s): I67.9 - CEREBROVASCULAR DISEASE, UNSPECIFIED (2) HTN (hypertension) Current Visit: Yes Status: Acute Assessment & Plan: blood pressure controlled. Continue home valsartan 3 to 20 mg, nifedipine 30 mg daily, Lopressor 12.5 BID Code(s): I10 - ESSENTIAL (PRIMARY) HYPERTENSION (3) Tobacco abuse Current Visit: Yes Status: Acute Assessment & Plan: currently smoking 1-1/2 packs/day. Encouraged smoking cessation Patient declined nicotine patch but will request if having further cravings Code(s): Z72.0 - TOBACCO USE (4) Mastoiditis Current Visit: Yes Status: Acute Assessment & Plan: -As shown on CT -MRI - not identified -Patient started on Rocephin/Zyvox -No findings on MRI/ no symptoms- discontinue abx Code(s): H70.90 - UNSPECIFIED MASTOIDITIS, UNSPECIFIED EAR (5) History of CAD (coronary artery disease) Current Visit: Yes Status: Acute Assessment & Plan: -H/o stent placement Continue atorvastatin 80 mg daily, Lopressor up to 1 5 BID I spent 35 minutes [id number] with the patient on the day of discharge performing discharge exam, discussing hospital stay and discharge instructions with patient and caregivers, preparation of discharge records, prescriptions & referral forms and addressing any questions/concerns the patient had as documented above. - Vitals & Intake/Output Vital Signs: Vital Signs Temperature 97.5 F 05/02/24 11:00 Pulse Rate 70 05/02/24 11:00 Respiratory Rate 17 05/02/24 11:00 Blood Pressure 163/77 05/02/24 11:00 O2 Sat by Pulse Oximetry 97 05/02/24 11:00 Intake & Output: Intake & Output 04/30/24 05/01/24 05/02/24 05/03/24 11:59 11:59 11:59 11:59 Intake Total 1500 120 Balance 1500 120 Weight 84.5 kg - Lab Result Diagrams: 05/02/24 05:05 05/02/24 05:05 Lab Results-Last 24 Hrs: Lab Results-Last 24 Hours 05/02/24 05/02/24 05/02/24 Range/Units 05:05 05:05 05:05 WBC 5.9 (3.98-10.04) x10^3/uL RBC 4.01 (3.93-5.22) x10^6/uL Hgb 12.3 (11.2-15.7) g/dL Hct 38.0 (34.1-44.9) % MCV 94.8 (79.4-94.8) fL MCH 30.7 (25.6-32.2) pg MCHC 32.4 (32.2-35.5) g/dL RDW 13.2 (11.7-14.4) % Plt Count 244 (182-369) x10^3/uL MPV 9.4 (9.4-12.3) fL Sodium 137 (135-145) mmol/L Potassium 4.0 (3.5-5.1) mmol/L Chloride 106 (98-107) mmol/L Carbon Dioxide 22 (22-30) mmol/L Anion Gap 13.1 (5-15) MEQ/L BUN 19 H (7-17) mg/dL Creatinine 0.99 (0.52-1.04) mg/dL Estimated GFR 61.7 ML/MIN Glucose 96 (74-106) mg/dL Calcium 9.2 (8.4-10.2) mg/dL Total Bilirubin 0.40 (0.2-1.3) mg/dL AST 28 (14-36) U/L ALT 24 (0-35) U/L Alkaline Phosphatase 82 (38-126) U/L Serum Total Protein 6.2 L (6.3-8.2) g/dL Albumin 3.9 (3.5-5.0) g/dL Free T4 0.92 (0.78-2.19) ng/dL - Radiology Exams Ordered Rad Exams-Entire Visit: Radiology Procedures Category Date Time Status CT ANGIOGRAPHY NECK [CT] Stat Exams 04/30/24 18:41 Completed CTA HEAD W AND/OR WO CONTRAST [CT] Stat Exams 04/30/24 18:41 Completed ECHO W/2D AND DOPPLER [US] Routine Exams 05/02/24 08:00 Taken HEAD WITHOUT CONTRAST [CT] Stat Exams 04/30/24 16:47 Completed MRI BRAIN W/O CONTRAST [MRI] Routine Exams 05/02/24 09:07 Completed Discharge Exam General Appearance: no apparent distress Neurologic Exam: alert, oriented x 3, cooperative Eye Exam: PERRL Ears, Nose, Throat Exam: normal ENT inspection Neck Exam: normal inspection Respiratory Exam: normal breath sounds, lungs clear Cardiovascular Exam: regular rate/rhythm, normal heart sounds Gastrointestinal/Abdomen Exam: soft, normal bowel sounds Pelvic Exam: deferred Rectal Exam: deferred Back Exam: normal inspection Extremity Exam: normal inspection Skin Exam: normal color Final Diagnosis/Problem List - Final Discharge Diagnosis/Problem (1) Cerebrovascular disease Current Visit: Yes Status: Acute Code(s): I67.9 - CEREBROVASCULAR DISEASE, UNSPECIFIED (2) HTN (hypertension) Current Visit: Yes Status: Acute Code(s): I10 - ESSENTIAL (PRIMARY) HYPERTENSION (3) Tobacco abuse Current Visit: Yes Status: Acute Code(s): Z72.0 - TOBACCO USE (4) Mastoiditis Current Visit: Yes Status: Acute Code(s): H70.90 - UNSPECIFIED MASTOIDITIS, UNSPECIFIED EAR (5) History of CAD (coronary artery disease) Current Visit: Yes Status: Acute Code(s): Z86.79 - PERSONAL HISTORY OF OTHER DISEASES OF THE CIRCULATORY SYSTEM - Discharge Discharge Date: 05/02/24 Disposition: Home, Self-Care Condition: Good Prescriptions: New Aspirin EC 81 mg [Ecotrin 81 mg] 81 mg PO DAILY 30 Days #30 tablet Nicotine 21 mg [Nicoderm CQ 21 MG] 21 mg TOP Q24H 42 Days #42 patch Clopidogrel Bisulfate [Plavix] 75 mg PO DAILY 21 Days #21 tablet Continue Furosemide 20 mg [Lasix 20 mg] 20 mg PO DAILY Atorvastatin Calcium [Lipitor] 80 mg PO DAILY NIFEdipine [Nifedipine ER] 30 mg PO DAILY Melatonin 10 mg PO HS Metoprolol Tartrate 25 mg [Lopressor 25MG Tab] 12.5 mg PO BID #15 tab Valsartan [Diovan] 320 mg PO DAILY Cholecalciferol (Vitamin D3) [Vitamin D3] 1 cap PO DAILY Hydrocodone/Acetaminophen [Hydrocodone-Acetamin 10-325 mg] 1 each PO Q8H Ezetimibe 10 mg PO DAILY Magnesium 200 mg PO HS Baclofen 10 mg [Lioresal 10 mg] 10 mg PO DAILY PRN PRN PRN Reason: Muscle Spasms Follow up with: VINEET KAYE [Primary Care Provider] -
== END 2024-05-02 16:10 | disposition home or self-care (01) ==
LOC: ED 16:38 → MED SURG 23:07
PROVIDERS: ADMIT Internal Medicine; ATTEND Internal Medicine
DX: I67.9 Cerebrovascular disease, unspecified (principal); I10 Essential (primary) hypertension; H70.90 Unspecified mastoiditis, unspecified ear; I25.10 Atherosclerotic heart disease of native coronary artery without angina pectoris; M79.7 Fibromyalgia; E78.5 Hyperlipidemia, unspecified; I25.2 Old myocardial infarction; Z86.79 Personal history of other diseases of the circulatory system; Z79.899 Other long term (current) drug therapy; Z72.0 Tobacco use; Z95.0 Presence of cardiac pacemaker
CPT/HCPCS: 36415; 70450; 70496; 70498; 70551; 80048; 80053; 80061; 81001; 83036; 83605; 83721; 83880; 84439; 84443; 84484; 85025; 85027; 85652; 93005; 93268; 93306; 99283; 99285; J0696; J2020; Q3014; A9270-GY; G0378